=== PATIENT | male | born 1980 ===

== ENCOUNTER 2020-12-06 09:14 | Inpatient (IN) | payer OTHER, SELFPAY ==
[2020-12-06] MEDS ORDERED: ACETAMINOPHEN 500 MG TAB PO ONE (09:52)
[2020-12-06] MEDS ORDERED: SODIUM CHLORIDE 0.9% 1000 ML 1,000 ML IV ONE ×2 (09:52)
--- NOTE | 2020-12-06 09:57 | Emergency Department Report ---
HPI - General Chief Complaint: Dyspnea/Respdistress Time Seen by Provider: 12/06/20 09:32 - HPI HPI: MSE 5 The patient is a 40-year-old male present with a chief complaint of shortness of breath. Patient states he was diagnosed with Covid approximately 7 days ago. The patient states for the past 3 days he has had worsening shortness of breath. Patient is still cough productive yellow sputum for the past 4 days as well as subjective fever. Patient complains of chest pain abdominal pain whenever he coughs. Patient denies nausea/vomiting or diarrhea. Patient states she has not received any vaccinations for Covid. Patient was found to be hypoxic to 92% on room air but improved with supplemental O2. Patient is not on oxygen at home ED Past Medical Hx - Past Medical History Previous Medical History?: No - Surgical History Past Surgical History?: No - Family History Family history: no significant - Social History Smoking Status: Former Smoker (None x5 years) Substance Use Type: None (Denies illicit drug use), Alcohol (Frequent) ED Review of Systems ROS: Stated complaint: COVID +/HEIDY Other details as noted in HPI Constitutional: fever (Subjective) Eyes: denies: eye pain ENT: denies: throat pain Respiratory: cough, shortness of breath Cardiovascular: chest pain Endocrine: no symptoms reported Gastrointestinal: abdominal pain Genitourinary: denies: dysuria Musculoskeletal: myalgia Neurological: denies: headache Physical Exam - Physical Exam Vital Signs: Vital Signs 12/06/20 12/06/20 09:20 09:21 Temperature 100.4 F H 98.0 F Pulse Rate 110 H Respiratory 16 Rate Blood Pressure 146/85 [Left] O2 Sat by Pulse 92 Oximetry Physical Exam: GENERAL: The patient is well-developed well-nourished male lying on stretcher not appearing to be in acute distress. [] HEENT: Normocephalic. Atraumatic. Extraocular motions are intact. Patient has moist mucous membranes. NECK: Supple. Trachea midline CHEST/LUNGS: Diminished at the bases bilaterally. Rhonchi left base. Occasional cough HEART/CARDIOVASCULAR: Regular. There is tachycardia. There is no gallop rub or murmur. ABDOMEN: Abdomen is soft, nontender. Patient has normal bowel sounds. There is no abdominal distention. SKIN: There is no rash. There is no edema. There is no diaphoresis. NEURO: The patient is awake, alert, and oriented. The patient is cooperative. The patient has no focal neurologic deficits. The patient has normal speech. GCS 15 MUSCULOSKELETAL: There is no evidence of acute injury. ED Course Vital Signs 12/06/20 12/06/20 09: 09: Temperature 100.4 F H 98.0 F Pulse Rate 110 H Respiratory 16 Rate Blood Pressure 146/85 [Left] O2 Sat by Pulse 92 Oximetry ED Medical Decision Making - Lab Data Result diagrams: 12/06/20 10:03 12/06/20 10:03 Laboratory Tests 12/06/20 12/06/20 12/06/20 10:03 10:03 10:03 WBC 5.2 RBC 5.06 H Hgb 16.6 H Hct 46.5 H MCV 92 MCH 33 H MCHC 36 H RDW 13.0 L Plt Count 177 Lymph % (Auto) 12.3 L [place] % (Auto) 6.9 Eos % (Auto) 0.0 Baso % (Auto) 0.3 Lymph # (Auto) 0.6 L [place] # (Auto) 0.4 Eos # (Auto) 0.0 Baso # (Auto) 0.0 Seg Neutrophils % 80.5 H Seg Neutrophils # 4.2 D-Dimer Sodium 136 L Potassium 4.4 Chloride 96.3 L Carbon Dioxide 26 Anion Gap 18 BUN 15 Creatinine 0.7 L Estimated GFR > 60 BUN/Creatinine Ratio 21 Glucose 229 H Lactic Acid 2.90 H* Calcium 8.5 Total Bilirubin 0.50 AST 46 H ALT 44 Alkaline Phosphatase 72 Lactate Dehydrogenase Total Creatine Kinase 261 H CK-MB (CK-2) 1.4 CK-MB (CK-2) Rel Index 0.5 Troponin T < 0.010 C-Reactive Protein NT-Pro-B Natriuret Pep 5.79 Total Protein 8.1 Albumin 3.7 L Albumin/Globulin Ratio 0.8 12/06/20 12/06/20 10:03 10:03 WBC RBC Hgb Hct MCV MCH MCHC RDW Plt Count Lymph % (Auto) [place] % (Auto) Eos % (Auto) Baso % (Auto) Lymph # (Auto) [place] # (Auto) Eos # (Auto) Baso # (Auto) Seg Neutrophils % Seg Neutrophils # D-Dimer 400.56 H Sodium Potassium Chloride Carbon Dioxide Anion Gap BUN Creatinine Estimated GFR BUN/Creatinine Ratio Glucose 229 H Lactic Acid Calcium Total Bilirubin AST ALT Alkaline Phosphatase Lactate Dehydrogenase 395 H Total Creatine Kinase CK-MB (CK-2) CK-MB (CK-2) Rel Index Troponin T C-Reactive Protein 15.80 H NT-Pro-B Natriuret Pep Total Protein Albumin Albumin/Globulin Ratio - EKG Data -: EKG Interpreted by Me EKG shows normal: sinus rhythm, axis, QRS complexes Rate: tachycardia (104 bpm) - EKG Data When compared to previous EKG there are: previous EKG unavailable Interpretation: nonspecific ST-T wave gabby (T wave inversion lead III) - Radiology Data Radiology results: report reviewed (Chest x-ray), image reviewed (Chest x-ray) interpreted by me: Chest [id number] patchy bilateral infiltrates consistent with Covid pneumonia. No pneumothorax [facility] [address] [place] [address] XRay Report Signed Patient: MAGNUS PAYNE MR#: [id number] : 1980 Acct:[id number] Age/Sex: 40 / M ADM Date: 12/06/20 Loc: ED Attending Dr: Ordering Physician: LAUREN FOOTE MD Date of Service: 12/06/20 Procedure(s): XR chest routine 2V Accession Number(s): [id number] cc: LAUREN FOOTE MD Fluoro Time In Minutes: CHEST 2 VIEWS INDICATION / CLINICAL INFORMATION: Hypoxia, Covid positive. Chest pain. COMPARISON: None available. FINDINGS: SUPPORT DEVICES: None. HEART / MEDIASTINUM: No significant abnormality. LUNGS / PLEURA: Severe patchy bilateral opacities. ADDITIONAL FINDINGS: No significant additional findings. IMPRESSION: 1. Severe patchy bilateral pulmonary opacities suggesting multifocal viral pneumonia. Signer Name: Ry Turner MD Signed: 12/06/2020 10:48 AM Workstation Name: [id number] Transcribed By: BRANDON Dictated By: Ry Turner MD Electronically Authenticated By: Ry Turner MD Signed Date/Time: 12/06/20 104 DD/ 47 TD/TT: Print Cancel - Differential Diagnosis COVID pneumonia Critical care attestation.: If time is entered above; I have spent that time in minutes in the direct care of this critically ill patient, excluding procedure time. ED Disposition Clinical Impression: Pneumonia due to COVID-19 virus, Hypoxia Disposition: ADMITTED INPATIENT Is pt being admited?: Yes Does the pt Need Aspirin: No Condition: Fair Instructions: Bacterial Pneumonia (ED) Referrals: PRIMARY CARE, [Primary Care Provider] - 3-5 Days Time of Disposition: 11:27 (Hospitalist notified)
[2020-12-06] MEDS ORDERED: dexAMETHasone 20 MG/5 ML VIAL IV ONE (09:59)
[2020-12-06] MEDS ORDERED: cefTRIAXone/NS 1 GM/50 ML 1 GM/50 ML BAG IV ONE (10:39)
[2020-12-06] MEDS ORDERED: AZITHROMYCIN/NS 500 MG/250 ML 500 MG/250 ML BAG IV ONE (10:39)
--- NOTE | 2020-12-06 10:52 | XRay Report ---
CHEST 2 VIEWS INDICATION / CLINICAL INFORMATION: Hypoxia, Covid positive. Chest pain. COMPARISON: None available. FINDINGS: SUPPORT DEVICES: None. HEART / MEDIASTINUM: No significant abnormality. LUNGS / PLEURA: Severe patchy bilateral opacities. ADDITIONAL FINDINGS: No significant additional findings. IMPRESSION: 1. Severe patchy bilateral pulmonary opacities suggesting multifocal viral pneumonia. Signer Name: Ry Turner MD Signed: 12/06/2020 10:48 AM Workstation Name: [id number]
[2020-12-06 10:55] LABS: Basophils % (Auto) 0.3 % (0.0-1.8); Lymphocytes # (Auto) 0.6 K/mm3 (1.2-5.4); Lymphocytes % (Auto) 12.3 % (13.4-35.0); Mean Corpuscular HGB Conc 36 % (32-34); Mean Corpuscular Volume 92 fl (84-94); Monocytes # (Auto) 0.4 K/mm3 (0.0-0.8); Monocytes % (Auto) 6.9 % (0.0-7.3); Platelet Count 177 K/mm3 (140-440); Red Blood Count 5.06 M/mm3 (3.65-5.03)
[2020-12-06 11:01] LABS: Hematocrit 46.5 % (35.5-45.6); Hemoglobin 16.6 gm/dl (11.8-15.2)
[2020-12-06 11:15] LABS: Creatine Kinase MB 1.4 ng/mL (0.0-4.0)
[2020-12-06 11:18] LABS: Alanine Aminotransferase 44 units/L (7-56); Albumin 3.7 g/dL (3.9-5); Blood Urea Nitrogen 15 mg/dL (9-20); Calcium 8.5 mg/dL (8.4-10.2); Hemolysis Index 9
[2020-12-06 11:19] LABS: C-Reactive Protein 15.8 mg/dL (0.00-1.30)
[2020-12-06 11:23] LABS: BUN/Creatinine Ratio 21
[2020-12-06] MEDS ORDERED: ACETAMINOPHEN 325 MG TAB PO PRN ×2 (16:00→17:42)
[2020-12-06] MEDS ORDERED: METOCLOPRAMIDE 10 MG/2 ML INJ IV PRN (17:44)
[2020-12-06] MEDS ORDERED: SODIUM CHLORIDE 0.9% 1000 ML 1,000 ML IV SCH (17:45)
--- NOTE | 2020-12-06 17:50 | History and Physical Report ---
History of Present Illness Date of examination: 12/06/20 Date of admission: 12/06/20 11:26 Chief complaint: Fever and cough and shortness of breath for 4 days. History of present illness: 40-year-old male with no significant past medical history comes in for increasi ng shortness of breath over the last 3 days. Patient was diagnosed with Covid approximately 7 days ago. Patient has cough paroxysms with no sputum for the past 4 days and subjective fever off and on for the past 4 days. Patient also complains of chest pain and abdominal pain whenever he coughs. Patient denies nausea vomiting or diarrhea. Patient was hypoxic found to be hypoxic at 92% on room air indicating mid to 86% on ambulation. Patient is not on oxygen at home. Patient is not vaccinated. Exposed to Covid pneumonia in the community. No loss of taste or smell. - Past Medical History Previous Medical History?: No - Surgical History Past Surgical History?: No - Family History Family history: no significant - Social History Smoking Status: Former Smoker (None x5 years) Substance Use Type: None (Denies illicit drug use), Alcohol (Frequent) Review of Systems ROS: Stated complaint: COVID +/HEIDY Other details as noted in HPI Constitutional: fever (Subjective) Eyes: denies: eye pain ENT: denies: throat pain Respiratory: cough, shortness of breath Cardiovascular: chest pain Endocrine: no symptoms reported Gastrointestinal: abdominal pain Genitourinary: denies: dysuria Musculoskeletal: myalgia Neurological: denies: headache Medications and Allergies Allergies Allergy/AdvReac Type Severity Reaction Status Date / Time No Known Allergies Allergy Verified 12/06/20 09:22 Active Meds: Active Medications Acetaminophen (Acetaminophen 325 Mg Tab) 650 mg PO Q6H PRN PRN Reason: Pain, Mild (1-3) Guaifenesin (Guaifenesin 100 Mg/5 Ml Oral Liqd) 200 mg PO Q4H PRN PRN Reason: Cough Exam - Constitutional Vitals: Temp Pulse Resp BP Pulse Ox 99.2 F 89 18 129/78 92 12/06/20 15:55 12/06/20 15:43 12/06/20 15:43 12/06/20 15:43 12/06/20 15:43 General appearance: Present: mild distress, well-nourished - EENT Eyes: Present: PERRL ENT: hearing intact, clear oral mucosa - Neck Neck: Present: supple, normal ROM - Respiratory Respiratory effort: normal Respiratory: bilateral: CTA, rhonchi (Scattered) - Cardiovascular Heart rate: 88 Rhythm: regular Heart Sounds: Present: S1 & S2. Absent: rub, click - Extremities Extremities: pulses symmetrical, No edema Peripheral Pulses: within normal limits - Abdominal General gastrointestinal: Present: soft, non-tender, non-distended, normal bowel sounds Male genitourinary: Present: normal - Integumentary Integumentary: Present: clear, warm, dry - Musculoskeletal Musculoskeletal: gait normal, strength equal bilaterally - Psychiatric Psychiatric: appropriate mood/affect, intact judgment & insight - Neurologic Neurologic: CNII-XII intact, moves all extremities - Allied Health Allied health notes reviewed: nursing, case management HEART Score - HEART Score Troponin: Troponin T < 0.010 ng/mL (0.00-0.029) 12/06/20 10:03 Results - Labs CBC & Chem 7: 12/06/20 10:03 12/06/20 10:03 Labs: Laboratory Last Values WBC 5.2 K/mm3 (4.5-11.0) 12/06/20 10:03 RBC 5.06 M/mm3 (3.65-5.03) H 12/06/20 10:03 Hgb 16.6 gm/dl (11.8-15.2) H 12/06/20 10:03 Hct 46.5 % (35.5-45.6) H 12/06/20 10:03 MCV 92 fl (84-94) 12/06/20 10:03 MCH 33 pg (28-32) H 12/06/20 10:03 MCHC 36 % (32-34) H 12/06/20 10:03 RDW 13.0 % (13.2-15.2) L 12/06/20 10:03 Plt Count 177 K/mm3 (140-440) 12/06/20 10:03 Lymph % (Auto) 12.3 % (13.4-35.0) L 12/06/20 10:03 [place] % (Auto) 6.9 % (0.0-7.3) 12/06/20 10:03 Eos % (Auto) 0.0 % (0.0-4.3) 12/06/20 10:03 Baso % (Auto) 0.3 % (0.0-1.8) 12/06/20 10:03 Lymph # (Auto) 0.6 K/mm3 (1.2-5.4) L 12/06/20 10:03 [place] # (Auto) 0.4 K/mm3 (0.0-0.8) 12/06/20 10:03 Eos # (Auto) 0.0 K/mm3 (0.0-0.4) 12/06/20 10:03 Baso # (Auto) 0.0 K/mm3 (0.0-0.1) 12/06/20 10:03 Seg Neutrophils % 80.5 % (40.0-70.0) H 12/06/20 10:03 Seg Neutrophils # 4.2 K/mm3 (1.8-7.7) 12/06/20 10:03 D-Dimer 400.56 ng/mlDDU (0-234) H 12/06/20 10:03 Sodium 136 mmol/L (137-145) L 12/06/20 10:03 Potassium 4.4 mmol/L (3.6-5.0) 12/06/20 10:03 Chloride 96.3 mmol/L (98-107) L 12/06/20 10:03 Carbon Dioxide 26 mmol/L (22-30) 12/06/20 10:03 Anion Gap 18 mmol/L 12/06/20 10:03 BUN 15 mg/dL (9-20) 12/06/20 10:03 Creatinine 0.7 mg/dL (0.8-1.3) L 12/06/20 10:03 Estimated GFR > 60 ml/min 12/06/20 10:03 BUN/Creatinine Ratio 21 % 12/06/20 10:03 Glucose 229 mg/dL (75-100) H 12/06/20 10:03 Glucose 229 mg/dL (75-100) H 12/06/20 10:03 Lactic Acid 2.90 mmol/L (0.7-2.0) H* 12/06/20 10:03 Calcium 8.5 mg/dL (8.4-10.2) 12/06/20 10:03 Ferritin 1901.0 ng/mL (30.0-300.0) H 12/06/20 10:03 Total Bilirubin 0.50 mg/dL (0.1-1.2) 12/06/20 10:03 AST 46 units/L (5-40) H 12/06/20 10:03 ALT 44 units/L (7-56) 12/06/20 10:03 Alkaline Phosphatase 72 units/L (35-129) 12/06/20 10:03 Lactate Dehydrogenase 395 units/L (91-180) H 12/06/20 10:03 Total Creatine Kinase 261 units/L (55-170) H 12/06/20 10:03 CK-MB (CK-2) 1.4 ng/mL (0.0-4.0) 12/06/20 10:03 CK-MB (CK-2) Rel Index 0.5 (0-4) 12/06/20 10:03 Troponin T < 0.010 ng/mL (0.00-0.029) 12/06/20 10:03 C-Reactive Protein 15.80 mg/dL (0.00-1.30) H 12/06/20 10:03 NT-Pro-B Natriuret Pep 5.79 pg/mL (0-450) 12/06/20 10:03 Total Protein 8.1 g/dL (6.3-8.2) 12/06/20 10:03 Albumin 3.7 g/dL (3.9-5) L 12/06/20 10:03 Albumin/Globulin Ratio 0.8 % 12/06/20 10:03 Procalcitonin 0.07 ng/mL (<0.15) 12/06/20 10:03 Coronavirus (PCR) Positive (Negative) A 12/06/20 Unknown Microbiology: Microbiology 12/06/20 10:03 Peripheral/Venous Blood Culture - Preliminary Culture in Progress 12/06/20 10:03 Peripheral/Venous Blood Culture - Preliminary Culture in Progress - Imaging and Cardiology Chest x-ray: report reviewed Imaging and Cardiology: Chest x-ray Severe patchy bilateral pulmonary opacities suggesting multifocal viral pneumonia Assessment and Plan Advance Directives: Yes (Full code) VTE prophylaxis?: Chemical Plan of care discussed with patient/family: Yes - Patient Problems (1) Acute respiratory failure with hypoxia Current Visit: Yes Status: Acute Plan to address problem: Continue oxygen supplementation IV Decadron IV remdesivir if necessary (2) Bilateral pneumonia Current Visit: Yes Status: Acute Plan to address problem: IV Rocephin and Zithromax for now We will discontinue antibiotics if procalcitonin is normal (3) SIRS (systemic inflammatory response syndrome) Current Visit: Yes Status: Acute Plan to address problem: Patient's clinical picture is consistent with systemic inflammatory response syndrome. D-dimer is 409, lactic acid is 2.99, ferritin is 199, LDH is 595 and CRP is 15.6. (4) Hyponatremia Current Visit: Yes Status: Acute Plan to address problem: IV normal saline for 12 hours. Repeat sodium level in the morning. (5) Hyperglycemia Current Visit: Yes Status: Acute Plan to address problem: Coverage for now and check hemoglobin A1c Patient may have undiagnosed diabetes To be discharged on Metformin and oral hypoglycemics--we will defer to primary team (6) DVT prophylaxis Current Visit: Yes Status: Acute Plan to address problem: On Lovenox and GI prophylaxis
[2020-12-06] MEDS ORDERED: AZITHROMYCIN/NS 500 MG/250 ML 500 MG/250 ML BAG IV SCH (18:00)
[2020-12-06] MEDS ORDERED: dexAMETHasone 4 MG/ML VIAL IV SCH (18:00)
[2020-12-06] MEDS: FAMOTIDINE 20 MG TAB PO SCH (21:21)
[2020-12-06] MEDS: ENOXAPARIN 40 MG/0.4 ML INJ SUB-Q SCH (21:21)
[2020-12-07] MEDS: guaiFENesin 100 MG/5 ML ORAL LIQD PO PRN ×3 (01:23→17:35)
[2020-12-07] MEDS: oxyCODONE /ACETAMINOPHEN 5-325MG TAB PO PRN ×2 (01:23→17:35)
[2020-12-07 08:00] LABS: Basophils % (Auto) 0.1 % (0.0-1.8); Hematocrit 43.7 % (35.5-45.6); Hemoglobin 15.1 gm/dl (11.8-15.2); Lymphocytes # (Auto) 0.7 K/mm3 (1.2-5.4); Lymphocytes % (Auto) 8.6 % (13.4-35.0); Mean Corpuscular HGB Conc 35 % (32-34); Mean Corpuscular Volume 93 fl (84-94); Monocytes # (Auto) 0.7 K/mm3 (0.0-0.8); Monocytes % (Auto) 8.6 % (0.0-7.3); Platelet Count 209 K/mm3 (140-440); Red Blood Count 4.68 M/mm3 (3.65-5.03); Red Cell Distribution Width 13.1 % (13.2-15.2)
[2020-12-07 08:12] LABS: Alanine Aminotransferase 38 units/L (7-56); Albumin 3.4 g/dL (3.9-5); Blood Urea Nitrogen 16 mg/dL (9-20); Calcium 8.3 mg/dL (8.4-10.2); Hemolysis Index 5
[2020-12-07 08:21] LABS: BUN/Creatinine Ratio 32
[2020-12-07] MEDS: INSULIN LISPRO 100 UNIT/ML SUB-Q SCH ×4 (08:45→22:10)
[2020-12-07] MEDS: ENOXAPARIN 40 MG/0.4 ML INJ SUB-Q SCH (09:55)
[2020-12-07] MEDS: FAMOTIDINE 20 MG TAB PO SCH ×2 (09:55→22:10)
[2020-12-07] MEDS: dexAMETHasone 4 MG/ML VIAL IV SCH (09:55)
[2020-12-07] MEDS ORDERED: AZITHROMYCIN/NS 500 MG/250 ML 500 MG/250 ML BAG IV SCH (10:00)
[2020-12-07] MEDS ORDERED: cefTRIAXone/NS 2 GM/100 ML 2 GM/100 ML BAG IV SCH (10:00)
--- NOTE | 2020-12-07 10:00 | Progress Note ---
Assessment and Plan Assessment and plan: -- Acute respiratory failure with hypoxia Current Visit: Yes Status: Acute Patient is on high flow nasal cannula oxygen 40 L/FiO2 80%/95 O2 sats Due to COVID-19 pneumonia with hypoxia --COVID-19 infection Current Visit: Yes Status: Acute Continue steroids total 10 days Consider remdesivir per protocol for 5 days Home O2 evaluation Prone positioning Inflammatory markers Home O2 evaluation prior to discharge --Bilateral pneumonia Current Visit: Yes Status: Acute On empiric IV Rocephin and Zithromax for now DC antibiotics as procalcitonin is low Check inflammatory markers -- SIRS (systemic inflammatory response syndrome) Current Visit: Yes Status: Acute Patient's clinical picture is consistent with systemic inflammatory response syndrome. D-dimer is 409, lactic acid is 2.99, ferritin is 199, LDH is 595 and CRP is 15.6. -- Hyponatremia/resolved Current Visit: Yes Status: Acute Closely monitor electrolytes --Hyperglycemia Current Visit: Yes Status: Acute Accu-Chek sliding scale coverage check hemoglobin A1c Probably secondary to steroids, HbA1c is less than 6 Closely monitor --DVT prophylaxis Current Visit: Yes Status: Acute On Lovenox subcu Closely monitor the patient and adjust management as needed Plan of care reviewed with the patient and his nurse 12/07/2020; COVID-19 positive test With hypoxia on high flow oxygen, wean as tolerated Patient is placed on steroids, started remdesivir per protocol Inflammatory markers, prone positioning ID evaluation and recommendations noted and appreciated History Interval history: I have seen and examined the patient this afternoon Isolation precautions PPE protocols observed Patient on high flow oxygen 40 L In mild distress Vital signs reviewed Hospitalist Physical - Constitutional Vitals: Temp Pulse Resp BP Pulse Ox 98.6 F 79 20 135/75 95 12/07/20 05:27 12/07/20 05:27 12/07/20 05:27 12/07/20 05:27 12/07/20 09:48 General appearance: Present: mild distress, well-nourished, other (On high flow oxygen) - EENT Eyes: Present: PERRL, EOM intact - Neck Neck: Present: supple, normal ROM - Respiratory Respiratory effort: normal Respiratory: bilateral: diminished, rhonchi, negative: rales, wheezing - Cardiovascular Rhythm: regular Heart Sounds: Present: S1 & S2 - Extremities Extremities: no ischemia, No edema - Abdominal General gastrointestinal: soft, non-tender, non-distended, normal bowel sounds - Integumentary Integumentary: Present: clear, warm - Psychiatric Psychiatric: appropriate mood/affect, cooperative - Neurologic Neurologic: CNII-XII intact, moves all extremities HEART Score - HEART Score Troponin: Troponin T < 0.010 ng/mL (0.00-0.029) 12/06/20 10:03 Results - Labs CBC & Chem 7: 12/07/20 07:01 12/07/20 07:01 Labs: Laboratory Last Values WBC 7.9 K/mm3 (4.5-11.0) 12/07/20 07:01 RBC 4.68 M/mm3 (3.65-5.03) 12/07/20 07:01 Hgb 15.1 gm/dl (11.8-15.2) 12/07/20 07:01 Hct 43.7 % (35.5-45.6) 12/07/20 07:01 MCV 93 fl (84-94) 12/07/20 07:01 MCH 32 pg (28-32) 12/07/20 07:01 MCHC 35 % (32-34) H 12/07/20 07:01 RDW 13.1 % (13.2-15.2) L 12/07/20 07:01 Plt Count 209 K/mm3 (140-440) 12/07/20 07:01 Lymph % (Auto) 8.6 % (13.4-35.0) L 12/07/20 07:01 [place] % (Auto) 8.6 % (0.0-7.3) H 12/07/20 07:01 Eos % (Auto) 0.0 % (0.0-4.3) 12/07/20 07:01 Baso % (Auto) 0.1 % (0.0-1.8) 12/07/20 07:01 Lymph # (Auto) 0.7 K/mm3 (1.2-5.4) L 12/07/20 07:01 [place] # (Auto) 0.7 K/mm3 (0.0-0.8) 12/07/20 07:01 Eos # (Auto) 0.0 K/mm3 (0.0-0.4) 12/07/20 07:01 Baso # (Auto) 0.0 K/mm3 (0.0-0.1) 12/07/20 07:01 Seg Neutrophils % 82.7 % (40.0-70.0) H 12/07/20 07:01 Seg Neutrophils # 6.6 K/mm3 (1.8-7.7) 12/07/20 07:01 D-Dimer 400.56 ng/mlDDU (0-234) H 12/06/20 10:03 Sodium 141 mmol/L (137-145) 12/07/20 07:01 Potassium 4.5 mmol/L (3.6-5.0) 12/07/20 07:01 Chloride 103.0 mmol/L (98-107) 12/07/20 07:01 Carbon Dioxide 29 mmol/L (22-30) 12/07/20 07:01 Anion Gap 14 mmol/L 12/07/20 07:01 BUN 16 mg/dL (9-20) 12/07/20 07:01 Creatinine 0.5 mg/dL (0.8-1.3) L 12/07/20 07:01 Estimated GFR > 60 ml/min 12/07/20 07:01 BUN/Creatinine Ratio 32 % 12/07/20 07:01 Glucose 147 mg/dL (75-100) H 12/07/20 07:01 POC Glucose 140 mg/dL (70-105) H 12/07/20 07:27 Hemoglobin A1c 5.8 % (4-6) 12/07/20 07:01 Lactic Acid 1.80 mmol/L (0.7-2.0) 12/06/20 19:12 Calcium 8.3 mg/dL (8.4-10.2) L 12/07/20 07:01 Ferritin 1901.0 ng/mL (30.0-300.0) H 12/06/20 10:03 Total Bilirubin 0.50 mg/dL (0.1-1.2) 12/07/20 07:01 AST 38 units/L (5-40) 12/07/20 07:01 ALT 38 units/L (7-56) 12/07/20 07:01 Alkaline Phosphatase 61 units/L (35-129) 12/07/20 07:01 Lactate Dehydrogenase 395 units/L (91-180) H 12/06/20 10:03 Total Creatine Kinase 261 units/L (55-170) H 12/06/20 10:03 CK-MB (CK-2) 1.4 ng/mL (0.0-4.0) 12/06/20 10:03 CK-MB (CK-2) Rel Index 0.5 (0-4) 12/06/20 10:03 Troponin T < 0.010 ng/mL (0.00-0.029) 12/06/20 10:03 C-Reactive Protein 15.80 mg/dL (0.00-1.30) H 12/06/20 10:03 NT-Pro-B Natriuret Pep 5.79 pg/mL (0-450) 12/06/20 10:03 Total Protein 7.3 g/dL (6.3-8.2) 12/07/20 07:01 Albumin 3.4 g/dL (3.9-5) L 12/07/20 07:01 Albumin/Globulin Ratio 0.9 % 12/07/20 07:01 Procalcitonin 0.07 ng/mL (<0.15) 12/06/20 10:03 Coronavirus (PCR) Positive (Negative) A 12/06/20 Unknown Microbiology: Microbiology 12/06/20 10:03 Peripheral/Venous Blood Culture - Preliminary Culture in Progress 12/06/20 10:03 Peripheral/Venous Blood Culture - Preliminary Culture in Progress [place]/IV: Voiding Method Urinal Active Medications - Current Medications Current Medications: Generic Name Dose Route Start Last Admin Trade Name Freq PRN Reason Stop Dose Admin Acetaminophen 650 mg 12/06/20 17:42 12/07/20 08:02 Acetaminophen 325 Mg Tab PO 650 mg Q4H PRN Administration Pain MILD(1-3)/Fever >100.5/BALDERRAMA Dexamethasone 8 mg 12/07/20 10:00 12/07/20 09:55 Dexamethasone 4 Mg/Ml Vial IV 12/15/20 10:01 8 mg DAILY LORENZO Administration Enoxaparin Sodium 40 mg 12/06/20 18:00 12/07/20 09:55 Enoxaparin 40 Mg/0.4 Ml Inj SUB-Q 40 mg QDAY LORENZO Administration Famotidine 20 mg 12/06/20 22:00 12/07/20 09:55 Famotidine 20 Mg Tab PO 20 mg BID LORENZO Administration Guaifenesin 200 mg 12/06/20 17:00 12/07/20 08:02 Guaifenesin 100 Mg/5 Ml Oral Liqd PO 200 mg Q4H PRN Administration Cough Hydromorphone HCl 0.5 mg 12/06/20 17:44 Hydromorphone 1 Mg/1 Ml Inj IV Q3H PRN Pain , Severe (7-10) Ceftriaxone Sodium 2 gm in 100 mls @ 200 mls/hr 12/07/20 10:00 12/07/20 09:54 Rocephin/Ns 2 Gm/100 Ml IV 12/10/20 10:29 200 mls/hr Q24HR LORENZO Administration Protocol Azithromycin 500 mg in 250 mls @ 250 mls/hr 12/07/20 10:00 12/07/20 09:54 Zithromax/Ns IV 12/10/20 10:59 250 mls/hr Q24HR LORENZO Administration Insulin Human Lispro 0 unit 12/07/20 07:30 12/07/20 08:45 Insulin Lispro 100 Unit/Ml SUB-Q Not Given ACHS [facility] Protocol Metoclopramide HCl 10 mg 12/06/20 17:44 Metoclopramide 10 Mg/2 Ml Inj IV Q6H PRN Nausea And Vomiting Ondansetron HCl 4 mg 12/06/20 17:42 Ondansetron 4 Mg/2 Ml Inj IV Q8H PRN Nausea And Vomiting Oxycodone/Acetaminophen 1 tab 12/06/20 17:44 12/07/20 01:23 Oxycodone /Acetaminophen 5-325mg Tab PO 1 tab Q6H PRN Administration Pain, Moderate (4-6) Sodium Chloride 10 ml 12/06/20 22:00 12/07/20 09:55 Sodium Chloride 0.9% 10 Ml Flush Syringe IV 10 ml BID LORENZO Administration Sodium Chloride 10 ml 12/06/20 17:42 Sodium Chloride 0.9% 10 Ml Flush Syringe IV PRN PRN LINE FLUSH
--- NOTE | 2020-12-07 11:38 | Electrocardiograph Report ---
[facility] Test Date: 2020-12-06 Test Time: 09:27:36 Pat Name: MAGNUS CHILD Department: Room: A365 Gender: M Pediatrician Active Practice: [facility] : 1980 Requested By: LAUREN FOOTE Order Number: [id number] Reading MD: Romero Ohara Measurements Intervals [place] Rate: 104 P: 28 [place]: 134 QRS: 25 QRSD: 74 T: 94 QT: 305 QTc: 400 Interpretive Statements Sinus tachycardia nonspecific st-t No previous ECG available for comparison Electronically Signed On 12-07-2020 11:37:42 EDT by Romero Ohara
[2020-12-07] MEDS ORDERED: BENZOCAINE/MENTHOL LOZENGE MM PRN (17:20)
--- NOTE | 2020-12-07 17:33 | Consultation ---
History of Present Illness - Reason for Consult Consult date: 12/07/20 COVID - History of Present Illness 40-year-old male with no medical history, admitted on 12/14/2020 secondary to 3 days history of cough, malaise, fever, body aches, and shortness of breath. Patient was diagnosed with COVID-19 7 days before admission. Patient did not receive COVID-19 vaccination. On arrival, temperature 100.4, HR 110, O2 sat 92% dropped to 86% on ambulation, BP 146/85. D-dimer 400.5. CRP 15.8. Proca lcitonin 0.07. Creatinine 0.7. AST 46. Glucose 229. Chest x-ray with severe bilateral airspace disease. Review of Systems: reviewed ED and H&P notes. Review of system deferred to minimize COVID-19 transmission. Medications and Allergies Allergies Allergy/AdvReac Type Severity Reaction Status Date / Time No Known Allergies Allergy Verified 12/06/20 09:22 Home Medications Medication Instructions Recorded Confirmed Last Taken Type No Known Home Medications [No 12/07/20 12/07/20 Unknown History Reported Home Medications] Active Meds: Active Medications Acetaminophen (Acetaminophen 325 Mg Tab) 650 mg PO Q4H PRN PRN Reason: Pain MILD(1-3)/Fever >100.5/BALDERRAMA Last Admin: 12/07/20 08:02 Dose: 650 mg Documented by: Benzocaine/Menthol (Benzocaine/Menthol Lozenge) 1 each MM Q2HR PRN PRN Reason: Sore Throat Dexamethasone (Dexamethasone 4 Mg/Ml Vial) 8 mg IV DAILY [facility] Stop: 12/15/20 10:01 Last Admin: 12/07/20 09:55 Dose: 8 mg Documented by: Enoxaparin Sodium (Enoxaparin 40 Mg/0.4 Ml Inj) 40 mg SUB-Q QDAY [facility] Last Admin: 12/07/20 09:55 Dose: 40 mg Documented by: Famotidine (Famotidine 20 Mg Tab) 20 mg PO BID [facility] Last Admin: 12/07/20 09:55 Dose: 20 mg Documented by: Guaifenesin (Guaifenesin 100 Mg/5 Ml Oral Liqd) 200 mg PO Q4H PRN PRN Reason: Cough Last Admin: 12/07/20 08:02 Dose: 200 mg Documented by: Hydromorphone HCl (Hydromorphone 1 Mg/1 Ml Inj) 0.5 mg IV Q3H PRN PRN Reason: Pain , Severe (7-10) Ceftriaxone Sodium (Rocephin/Ns 2 Gm/100 Ml) 2 gm in 100 mls @ 200 mls/hr IV Q24HR [facility]; Protocol Stop: 12/10/20 10:29 Last Admin: 12/07/20 09:54 Dose: 200 mls/hr Documented by: Azithromycin (Zithromax/Ns) 500 mg in 250 mls @ 250 mls/hr IV Q24HR [facility] Stop: 12/10/20 10:59 Last Admin: 12/07/20 09:54 Dose: 250 mls/hr Documented by: Insulin Human Lispro (Insulin Lispro 100 Unit/Ml) 0 unit SUB-Q ACHS [facility]; Protocol Last Admin: 12/07/20 16:46 Dose: 4 unit Documented by: Metoclopramide HCl (Metoclopramide 10 Mg/2 Ml Inj) 10 mg IV Q6H PRN PRN Reason: Nausea And Vomiting Ondansetron HCl (Ondansetron 4 Mg/2 Ml Inj) 4 mg IV Q8H PRN PRN Reason: Nausea And Vomiting Oxycodone/Acetaminophen (Oxycodone /Acetaminophen 5-325mg Tab) 1 tab PO Q6H PRN PRN Reason: Pain, Moderate (4-6) Last Admin: 12/07/20 01:23 Dose: 1 tab Documented by: Sodium Chloride (Sodium Chloride 0.9% 10 Ml Flush Syringe) 10 ml IV BID [facility] Last Admin: 12/07/20 09:55 Dose: 10 ml Documented by: Sodium Chloride (Sodium Chloride 0.9% 10 Ml Flush Syringe) 10 ml IV PRN PRN PRN Reason: LINE FLUSH Physical Examination - Physical Exam Narrative exam: Physical exam deferred to minimize COVID-19 transmission during pandemic. - Constitutional Vitals: Vital Signs Temp Pulse Resp BP Pulse Ox 98.5 F 90 20 147/79 91 12/07/20 16:02 12/07/20 16:02 12/07/20 16:02 12/07/20 16:02 12/07/20 16:02 Temperature -Last 24 Hours Temperature 98.5 F Temperature 98.6 F Temperature 100.0 F Results - Labs CBC & Chem 7: 12/07/20 07:01 12/07/20 07:01 Labs: Abnormal lab results 12/07/20 12/07/20 12/07/20 Range/Units 07:01 07:01 07:27 MCHC 35 H (32-34) % RDW 13.1 L (13.2-15.2) % Lymph % (Auto) 8.6 L (13.4-35.0) % [place] % (Auto) 8.6 H (0.0-7.3) % Lymph # (Auto) 0.7 L (1.2-5.4) K/mm3 Seg Neutrophils % 82.7 H (40.0-70.0) % Creatinine 0.5 L (0.8-1.3) mg/dL Glucose 147 H (75-100) mg/dL POC Glucose 140 H (70-105) mg/dL Calcium 8.3 L (8.4-10.2) mg/dL Albumin 3.4 L (3.9-5) g/dL 12/07/20 12/07/20 Range/Units 12:23 16:00 MCHC (32-34) % RDW (13.2-15.2) % Lymph % (Auto) (13.4-35.0) % [place] % (Auto) (0.0-7.3) % Lymph # (Auto) (1.2-5.4) K/mm3 Seg Neutrophils % (40.0-70.0) % Creatinine (0.8-1.3) mg/dL Glucose (75-100) mg/dL POC Glucose 144 H 222 H (70-105) mg/dL Calcium (8.4-10.2) mg/dL Albumin (3.9-5) g/dL Assessment and Plan Cultures: Blood culture 12/06/2020 pending SARS CoV2 PCR positive Assessment: 40-year-old male with no medical history, admitted on 12/14/2020 secondary to 3 days history of cough, malaise, fever, body aches, and shortness of breath. Patient was diagnosed with COVID-19 7 days before admission: #Severe COVID pneumonia: CXR with severe bilateral airspace disease. Inflammatory markers elevated. D-dimer 400.5. CRP 15.8. Procalcitonin 0.07. #Acute hypoxemic respiratory failure: O2 sat 92% dropped to 86% on ambulation, high flow nasal cannula. #Elevated LFTs: from COVID #Hyperglycemia ? Diabetes Recommendations: -Start Dexamethasone 6 mg IV/PO daily for 10 days -Start Remdesivir for 5 days (CrCl>30 mg/mL) -If patient remains on high flow, will probably be a candidate for Tocilizumab -Monitor inflammatory markers - ferritin, Ddimer, CRP, LDH -Monitor liver function test on Remdesivir -Continue anticoagulation per System Protocol -Prone positioning as possible -Stop ceftriaxone and azithromycin, procalcitonin <0.25 ng/mL All laboratory, cultures and imaging were reviewed. Will follow Paloma Solo MD Infectious Diseases [facility] ([facility]) M [phone] O [phone]
[2020-12-07] MEDS ORDERED: REMDESIVIR 200 MG in SODIUM CHLORIDE 0.9% 250ML 250 ML IV ONE (18:30)
[2020-12-07 20:12] LABS: Alanine Aminotransferase 64 units/L (7-56); BUN/Creatinine Ratio 27; Blood Urea Nitrogen 16 mg/dL (9-20); Calcium 8.2 mg/dL (8.4-10.2); Hemolysis Index 8
[2020-12-07] MEDS: SODIUM CHLORIDE 0.9% 50 ML IVPB IV SCH (22:11)
[2020-12-08] MEDS: HYDROmorphone 1 MG/1 ML INJ IV PRN (02:20)
[2020-12-08] MEDS: guaiFENesin 100 MG/5 ML ORAL LIQD PO PRN (02:20)
[2020-12-08] MEDS: INSULIN LISPRO 100 UNIT/ML SUB-Q SCH ×4 (07:30→21:33)
[2020-12-08 08:32] LABS: Alanine Aminotransferase 61 units/L (7-56); Albumin 3.1 g/dL (3.9-5); Blood Urea Nitrogen 18 mg/dL (9-20); Calcium 8.4 mg/dL (8.4-10.2); Hemolysis Index 7
--- NOTE | 2020-12-08 08:32 | Progress Note ---
Assessment and Plan Cultures: Blood culture 12/06/2020 peno growth today SARS CoV2 PCR positive Assessment: 40-year-old male with no medical history, admitted on 12/14/2020 secondary to 3 days history of cough, malaise, fever, body aches, and shortness of breath. Patient was diagnosed with COVID-19 7 days before admission: #Severe COVID pneumonia: CXR with severe bilateral airspace disease. Inflammatory markers elevated. D-dimer 400.5. CRP 15.8. Procalcitonin 0.07. #Acute hypoxemic respiratory failure: remains on high flow nasal cannula 40L, 100%. #Elevated LFTs: not better, from COVID #Hyperglycemia ? Diabetes Recommendations: -Pulmonary consult -Continue Dexamethasone 6 mg IV/PO daily for 10 days -Continue Remdesivir for 5 days (CrCl>30 mg/mL) -Ordered Tocilizumab 8 mg/kg IV x 1 due to severe hypoxia on HFNC 40L, 100%, CRP 25.8. -Monitor inflammatory markers - ferritin, Ddimer, CRP, LDH -Monitor liver function test on Remdesivir -Continue anticoagulation per System Protocol -Prone positioning as possible Guarded prognosis Paloma Solo MD Infectious Diseases [employer] [facility] ([facility]) M [phone] O [phone] Subjective Date of service: 12/08/20 Principal diagnosis: COVID Interval history: Patient remains on high flow nasal cannula, 40 L, 100%, temperature 100.6, O2 sat dropping to 87%. Objective - Exam Narrative Exam: Physical exam deferred to minimize COVID-19 transmission during pandemic. - Constitutional Vitals: Vital Signs Temp Pulse Resp BP Pulse Ox 100.6 F H 94 H 18 107/60 86 12/08/20 04:55 12/08/20 04:55 12/08/20 04:55 12/08/20 04:55 12/08/20 04:55 Temperature -Last 24 Hours Temperature 100.6 F Temperature 99.3 F Temperature 98.5 F - Labs CBC & Chem 7: 12/07/20 07:01 12/08/20 07:26 Labs: Abnormal lab results 12/07/20 12/07/20 12/07/20 Range/Units 12:23 16:00 19:12 Carbon Dioxide 32 H (22-30) mmol/L Creatinine 0.6 L (0.8-1.3) mg/dL Glucose 262 H (75-100) mg/dL POC Glucose 144 H 222 H (70-105) mg/dL Calcium 8.2 L (8.4-10.2) mg/dL AST 69 H (5-40) units/L ALT 64 H (7-56) units/L Albumin 3.0 L (3.9-5) g/dL 12/07/20 12/08/20 Range/Units 21:50 07:58 Carbon Dioxide (22-30) mmol/L Creatinine (0.8-1.3) mg/dL Glucose (75-100) mg/dL POC Glucose 214 H 136 H (70-105) mg/dL Calcium (8.4-10.2) mg/dL AST (5-40) units/L ALT (7-56) units/L Albumin (3.9-5) g/dL
[2020-12-08] MEDS ORDERED: TOCILIZUMAB 800 MG in SODIUM CHLORIDE 0.9% 100 ML IV ONE (08:33)
[2020-12-08 08:44] LABS: BUN/Creatinine Ratio 36
[2020-12-08] MEDS: FAMOTIDINE 20 MG TAB PO SCH ×2 (09:30→21:33)
[2020-12-08] MEDS: ENOXAPARIN 40 MG/0.4 ML INJ SUB-Q SCH (09:30)
[2020-12-08] MEDS: dexAMETHasone 4 MG/ML VIAL IV SCH (09:30)
--- NOTE | 2020-12-08 09:48 | Progress Note ---
Assessment and Plan Assessment and plan: -- Acute respiratory failure with hypoxia Current Visit: Yes Status: Acute Patient is on high flow nasal cannula oxygen 40 L/FiO2 80%/95 O2 sats Due to COVID-19 pneumonia with hypoxia Consult pulmonary after CTA chest tomorrow --COVID-19 infection Current Visit: Yes Status: Acute Continue steroids total 10 days Consider remdesivir per protocol for 5 days Home O2 evaluation Prone positioning Inflammatory markers Home O2 evaluation prior to discharge ID recommended Tocilizumab [Actemra] 100 mL today Consult pulmonary after CTA chest tomorrow --Bilateral pneumonia Current Visit: Yes Status: Acute On empiric IV Rocephin and Zithromax for now DC antibiotics as procalcitonin is low Check inflammatory markers -- SIRS (systemic inflammatory response syndrome) Current Visit: Yes Status: Acute Patient's clinical picture is consistent with systemic inflammatory response syndrome. D-dimer is 409, lactic acid is 2.99, ferritin is 199, LDH is 595 and CRP is 15.6. -- Hyponatremia/resolved Current Visit: Yes Status: Acute Closely monitor electrolytes --Hyperglycemia Current Visit: Yes Status: Acute Accu-Chek sliding scale coverage check hemoglobin A1c Probably secondary to steroids, HbA1c is less than 6 Closely monitor --DVT prophylaxis Current Visit: Yes Status: Acute On Lovenox subcu Closely monitor the patient and adjust management as needed Plan of care reviewed with the patient and his nurse 12/07/2020; COVID-19 positive test With hypoxia on high flow oxygen, wean as tolerated Patient is placed on steroids, started remdesivir per protocol Inflammatory markers, prone positioning ID recommendations noted and appreciated 12/08/2020; Patient remains on high flow oxygen, elevated D-dimers Will check CTA chest tomorrow and consult pulmonary History Interval history: I have seen and examined the patient at the bedside Patient's chart and medications reviewed Isolation precautions PPE protocols observed Patient complains of severe shortness of breath and weakness Patient continues to be on high flow oxygen 40 L/100% FiO2/95% room air In mild distress We will consult pulmonary tomorrow Hospitalist Physical - Constitutional Vitals: Temp Pulse Resp BP Pulse Ox 100.6 F H 94 H 18 107/60 86 12/08/20 04:55 12/08/20 04:55 12/08/20 04:55 12/08/20 04:55 12/08/20 04:55 General appearance: Present: mild distress, well-nourished, other (On high flow oxygen) - EENT Eyes: Present: PERRL, EOM intact - Neck Neck: Present: supple, normal ROM - Respiratory Respiratory effort: normal Respiratory: bilateral: diminished, rhonchi, negative: rales, wheezing - Cardiovascular Rhythm: regular Heart Sounds: Present: S1 & S2 - Extremities Extremities: no ischemia, No edema - Abdominal General gastrointestinal: soft, non-tender, non-distended, normal bowel sounds - Integumentary Integumentary: Present: clear, warm - Psychiatric Psychiatric: appropriate mood/affect, cooperative - Neurologic Neurologic: CNII-XII intact, moves all extremities HEART Score - HEART Score Troponin: Troponin T < 0.010 ng/mL (0.00-0.029) 12/06/20 10:03 Results - Labs CBC & Chem 7: 12/07/20 07:01 12/08/20 07:26 Labs: Laboratory Last Values WBC 7.9 K/mm3 (4.5-11.0) 12/07/20 07:01 RBC 4.68 M/mm3 (3.65-5.03) 12/07/20 07:01 Hgb 15.1 gm/dl (11.8-15.2) 12/07/20 07:01 Hct 43.7 % (35.5-45.6) 12/07/20 07:01 MCV 93 fl (84-94) 12/07/20 07:01 MCH 32 pg (28-32) 12/07/20 07:01 MCHC 35 % (32-34) H 12/07/20 07:01 RDW 13.1 % (13.2-15.2) L 12/07/20 07:01 Plt Count 209 K/mm3 (140-440) 12/07/20 07:01 Lymph % (Auto) 8.6 % (13.4-35.0) L 12/07/20 07:01 [place] % (Auto) 8.6 % (0.0-7.3) H 12/07/20 07:01 Eos % (Auto) 0.0 % (0.0-4.3) 12/07/20 07:01 Baso % (Auto) 0.1 % (0.0-1.8) 12/07/20 07:01 Lymph # (Auto) 0.7 K/mm3 (1.2-5.4) L 12/07/20 07:01 [place] # (Auto) 0.7 K/mm3 (0.0-0.8) 12/07/20 07:01 Eos # (Auto) 0.0 K/mm3 (0.0-0.4) 12/07/20 07:01 Baso # (Auto) 0.0 K/mm3 (0.0-0.1) 12/07/20 07:01 Seg Neutrophils % 82.7 % (40.0-70.0) H 12/07/20 07:01 Seg Neutrophils # 6.6 K/mm3 (1.8-7.7) 12/07/20 07:01 D-Dimer 400.56 ng/mlDDU (0-234) H 12/06/20 10:03 Sodium 142 mmol/L (137-145) 12/08/20 07:26 Potassium 4.5 mmol/L (3.6-5.0) 12/08/20 07:26 Chloride 102.5 mmol/L (98-107) 12/08/20 07:26 Carbon Dioxide 27 mmol/L (22-30) 12/08/20 07:26 Anion Gap 17 mmol/L 12/08/20 07:26 BUN 18 mg/dL (9-20) 12/08/20 07:26 Creatinine 0.5 mg/dL (0.8-1.3) L 12/08/20 07:26 Estimated GFR > 60 ml/min 12/08/20 07:26 BUN/Creatinine Ratio 36 % 12/08/20 07:26 Glucose 136 mg/dL (75-100) H 12/08/20 07:26 POC Glucose 136 mg/dL (70-105) H 12/08/20 07:58 Hemoglobin A1c 5.8 % (4-6) 12/07/20 07:01 Lactic Acid 1.80 mmol/L (0.7-2.0) 12/06/20 19:12 Calcium 8.4 mg/dL (8.4-10.2) 12/08/20 07:26 Ferritin 1901.0 ng/mL (30.0-300.0) H 12/06/20 10:03 Total Bilirubin 0.60 mg/dL (0.1-1.2) 12/08/20 07:26 AST 56 units/L (5-40) H 12/08/20 07:26 ALT 61 units/L (7-56) H 12/08/20 07:26 Alkaline Phosphatase 65 units/L (35-129) 12/08/20 07:26 Lactate Dehydrogenase 395 units/L (91-180) H 12/06/20 10:03 Total Creatine Kinase 261 units/L (55-170) H 12/06/20 10:03 CK-MB (CK-2) 1.4 ng/mL (0.0-4.0) 12/06/20 10:03 CK-MB (CK-2) Rel Index 0.5 (0-4) 12/06/20 10:03 Troponin T < 0.010 ng/mL (0.00-0.029) 12/06/20 10:03 C-Reactive Protein 15.80 mg/dL (0.00-1.30) H 12/06/20 10:03 NT-Pro-B Natriuret Pep 5.79 pg/mL (0-450) 12/06/20 10:03 Total Protein 6.9 g/dL (6.3-8.2) 12/08/20 07:26 Albumin 3.1 g/dL (3.9-5) L 12/08/20 07:26 Albumin/Globulin Ratio 0.8 % 12/08/20 07:26 Procalcitonin 0.07 ng/mL (<0.15) 12/06/20 10:03 Coronavirus (PCR) Positive (Negative) A 12/06/20 Unknown Microbiology: Microbiology 12/06/20 10:03 Peripheral/Venous Blood Culture - Preliminary NO GROWTH AFTER 24 HOURS 12/06/20 10:03 Peripheral/Venous Blood Culture - Preliminary NO GROWTH AFTER 24 HOURS Santillan/IV: Voiding Method Urinal Active Medications - Current Medications Current Medications: Generic Name Dose Route Start Last Admin Trade Name Freq PRN Reason Stop Dose Admin Acetaminophen 650 mg 12/06/20 17:42 12/07/20 08:02 Acetaminophen 325 Mg Tab PO 650 mg Q4H PRN Administration Pain MILD(1-3)/Fever >100.5/BALDERRAMA Benzocaine/Menthol 1 each 12/07/20 17:20 12/07/20 19:19 Benzocaine/Menthol Lozenge MM 1 each Q2HR PRN Administration Sore Throat Dexamethasone 8 mg 12/07/20 10:00 12/08/20 09:30 Dexamethasone 4 Mg/Ml Vial IV 12/15/20 10:01 8 mg DAILY LORENZO Administration Enoxaparin Sodium 40 mg 12/06/20 18:00 12/08/20 09:30 Enoxaparin 40 Mg/0.4 Ml Inj SUB-Q 40 mg QDAY LORENZO Administration Famotidine 20 mg 12/06/20 22:00 12/08/20 09:30 Famotidine 20 Mg Tab PO 20 mg BID LORENZO Administration Guaifenesin 200 mg 12/06/20 17:00 12/08/20 02:20 Guaifenesin 100 Mg/5 Ml Oral Liqd PO 200 mg Q4H PRN Administration Cough Hydromorphone HCl 0.5 mg 12/06/20 17:44 12/08/20 02:20 Hydromorphone 1 Mg/1 Ml Inj IV 0.5 mg Q3H PRN Administration Pain , Severe (7-10) REMDESIVIR 100 mg/ Sodium 250 mls @ 500 mls/hr 12/08/20 21:00 Chloride IV 12/11/20 21:29 Q24HR@2100 [facility] TOCILIZUMAB 810 mg/ Sodium 104.5 mls @ 120 mls/hr 12/08/20 10:00 Chloride IV 12/08/20 14:00 ONCE@1000 NR Insulin Human Lispro 0 unit 12/07/20 07:30 12/08/20 07:30 Insulin Lispro 100 Unit/Ml SUB-Q Not Given ACHS [facility] Protocol Metoclopramide HCl 10 mg 12/06/20 17:44 Metoclopramide 10 Mg/2 Ml Inj IV Q6H PRN Nausea And Vomiting Ondansetron HCl 4 mg 12/06/20 17:42 Ondansetron 4 Mg/2 Ml Inj IV Q8H PRN Nausea And Vomiting Oxycodone/Acetaminophen 1 tab 12/06/20 17:44 12/07/20 17:35 Oxycodone /Acetaminophen 5-325mg Tab PO 1 tab Q6H PRN Administration Pain, Moderate (4-6) Sodium Chloride 10 ml 12/06/20 22:00 12/07/20 22:12 Sodium Chloride 0.9% 10 Ml Flush Syringe IV 10 ml BID LORENZO Administration Sodium Chloride 10 ml 12/06/20 17:42 Sodium Chloride 0.9% 10 Ml Flush Syringe IV PRN PRN LINE FLUSH Sodium Chloride 50 ml 12/07/20 21:00 12/07/20 22:11 Sodium Chloride 0.9% 50 Ml Ivpb IV 12/11/20 21:01 50 ml Q24HR@2100 LORENZO Administration
[2020-12-08] MEDS ORDERED: TOCILIZUMAB 810 MG in SODIUM CHLORIDE 0.9% 100 ML IV NR (10:00)
[2020-12-08 14:40] LABS: C-Reactive Protein 15.8 mg/dL (0.00-1.30)
[2020-12-08] MEDS: SODIUM CHLORIDE 0.9% 50 ML IVPB IV SCH (21:31)
[2020-12-08] MEDS: REMDESIVIR 100 MG in SODIUM CHLORIDE 0.9% 250ML 250 ML IV SCH (21:32)
[2020-12-09] MEDS: INSULIN LISPRO 100 UNIT/ML SUB-Q SCH ×4 (07:30→21:29)
[2020-12-09] MEDS: HYDROmorphone 1 MG/1 ML INJ IV PRN (08:07)
--- NOTE | 2020-12-09 08:56 | Progress Note ---
Assessment and Plan Assessment and plan: -- Acute respiratory failure with hypoxia Current Visit: Yes Status: Acute Patient is on high flow nasal cannula oxygen 40 L/FiO2 100%/95 O2 sats Due to COVID-19 pneumonia with hypoxia CTA chest, pulmonary consult --COVID-19 infection Current Visit: Yes Status: Acute Continue steroids total 10 days Consider remdesivir per protocol for 5 days Home O2 evaluation, Prone positioning High inflammatory markers D-dimer 539 Ferritin 2970 LDH 662 CRP 15.8 Received Tocilizumab [Actemra] 100 mL 12/08/2020 CTA chest requested, pulmonary consulted --Bilateral pneumonia Current Visit: Yes Status: Acute On empiric IV Rocephin and Zithromax for now DC antibiotics as procalcitonin is low -- SIRS (systemic inflammatory response syndrome) Current Visit: Yes Status: Acute Patient's clinical picture is consistent with systemic inflammatory response syn drome. D-dimer is 409, lactic acid is 2.99, ferritin is 199, LDH is 595 and CRP is 15.6. -- Hyponatremia/resolved Current Visit: Yes Status: Acute Closely monitor electrolytes --Hyperglycemia Current Visit: Yes Status: Acute Accu-Chek sliding scale coverage check hemoglobin A1c Probably secondary to steroids, HbA1c is less than 6 Closely monitor --DVT prophylaxis Current Visit: Yes Status: Acute On Lovenox subcu Closely monitor the patient and adjust management as needed Plan of care reviewed with the patient and his nurse 12/07/2020; COVID-19 positive test With hypoxia on high flow oxygen, wean as tolerated Patient is placed on steroids, started remdesivir per protocol Inflammatory markers, prone positioning ID recommendations noted and appreciated 12/08/2020; Patient remains on high flow oxygen, elevated D-dimers Will check CTA chest tomorrow and consult pulmonary 12/09/2020; Remains on high flow oxygen, CTA chest to rule out PE Pulmonary consulted History Interval history: Patient remains hypoxemic on 40 L oxygen [with 100% nonrebreather] O2 sats 90% I have seen and examined the patient at the bedside Isolation precautions PPE protocols followed Patient remains on high flow oxygen in mild distress Hospitalist Physical - Constitutional Vitals: Temp Pulse Resp BP Pulse Ox 98.4 F 75 20 127/75 93 12/09/20 03:17 12/09/20 03:17 12/09/20 03:17 12/09/20 03:17 12/09/20 05:00 General appearance: Present: mild distress, well-nourished, other (On high flow oxygen) - EENT Eyes: Present: PERRL, EOM intact - Neck Neck: Present: supple, normal ROM - Respiratory Respiratory effort: labored Respiratory: bilateral: diminished, rhonchi, negative: rales, wheezing - Cardiovascular Rhythm: regular Heart Sounds: Present: S1 & S2 - Extremities Extremities: no ischemia, No edema - Abdominal General gastrointestinal: soft, non-tender, non-distended, normal bowel sounds - Integumentary Integumentary: Present: clear, warm - Psychiatric Psychiatric: appropriate mood/affect, cooperative - Neurologic Neurologic: moves all extremities HEART Score - HEART Score Troponin: Troponin T < 0.010 ng/mL (0.00-0.029) 12/06/20 10:03 Results - Labs CBC & Chem 7: 12/07/20 07:01 12/09/20 09:12 Labs: Laboratory Last Values WBC 7.9 K/mm3 (4.5-11.0) 12/07/20 07:01 RBC 4.68 M/mm3 (3.65-5.03) 12/07/20 07:01 Hgb 15.1 gm/dl (11.8-15.2) 12/07/20 07:01 Hct 43.7 % (35.5-45.6) 12/07/20 07:01 MCV 93 fl (84-94) 12/07/20 07:01 MCH 32 pg (28-32) 12/07/20 07:01 MCHC 35 % (32-34) H 12/07/20 07:01 RDW 13.1 % (13.2-15.2) L 12/07/20 07:01 Plt Count 209 K/mm3 (140-440) 12/07/20 07:01 Lymph % (Auto) 8.6 % (13.4-35.0) L 12/07/20 07:01 [place] % (Auto) 8.6 % (0.0-7.3) H 12/07/20 07:01 Eos % (Auto) 0.0 % (0.0-4.3) 12/07/20 07:01 Baso % (Auto) 0.1 % (0.0-1.8) 12/07/20 07:01 Lymph # (Auto) 0.7 K/mm3 (1.2-5.4) L 12/07/20 07:01 [place] # (Auto) 0.7 K/mm3 (0.0-0.8) 12/07/20 07:01 Eos # (Auto) 0.0 K/mm3 (0.0-0.4) 12/07/20 07:01 Baso # (Auto) 0.0 K/mm3 (0.0-0.1) 12/07/20 07:01 Seg Neutrophils % 82.7 % (40.0-70.0) H 12/07/20 07:01 Seg Neutrophils # 6.6 K/mm3 (1.8-7.7) 12/07/20 07:01 D-Dimer 539.70 ng/mlDDU (0-234) H 12/08/20 13:43 Sodium 142 mmol/L (137-145) 12/08/20 07:26 Potassium 4.5 mmol/L (3.6-5.0) 12/08/20 07:26 Chloride 102.5 mmol/L (98-107) 12/08/20 07:26 Carbon Dioxide 27 mmol/L (22-30) 12/08/20 07:26 Anion Gap 17 mmol/L 12/08/20 07:26 BUN 18 mg/dL (9-20) 12/08/20 07:26 Creatinine 0.5 mg/dL (0.8-1.3) L 12/08/20 07:26 Estimated GFR > 60 ml/min 12/08/20 07:26 BUN/Creatinine Ratio 36 % 12/08/20 07:26 Glucose 136 mg/dL (75-100) H 12/08/20 07:26 POC Glucose 152 mg/dL (70-105) H 12/09/20 08:00 Hemoglobin A1c 5.8 % (4-6) 12/07/20 07:01 Lactic Acid 1.80 mmol/L (0.7-2.0) 12/06/20 19:12 Calcium 8.4 mg/dL (8.4-10.2) 12/08/20 07:26 Ferritin 2970.0 ng/mL (30.0-300.0) H 12/08/20 13:43 Total Bilirubin 0.60 mg/dL (0.1-1.2) 12/08/20 07:26 AST 56 units/L (5-40) H 12/08/20 07:26 ALT 61 units/L (7-56) H 12/08/20 07:26 Alkaline Phosphatase 65 units/L (35-129) 12/08/20 07:26 Lactate Dehydrogenase 662 units/L (91-180) H 12/08/20 13:43 Total Creatine Kinase 261 units/L (55-170) H 12/06/20 10:03 CK-MB (CK-2) 1.4 ng/mL (0.0-4.0) 12/06/20 10:03 CK-MB (CK-2) Rel Index 0.5 (0-4) 12/06/20 10:03 Troponin T < 0.010 ng/mL (0.00-0.029) 12/06/20 10:03 C-Reactive Protein 15.80 mg/dL (0.00-1.30) H 12/08/20 13:43 NT-Pro-B Natriuret Pep 5.79 pg/mL (0-450) 12/06/20 10:03 Total Protein 6.9 g/dL (6.3-8.2) 12/08/20 07:26 Albumin 3.1 g/dL (3.9-5) L 12/08/20 07:26 Albumin/Globulin Ratio 0.8 % 12/08/20 07:26 Procalcitonin 0.07 ng/mL (<0.15) 12/06/20 10:03 Coronavirus (PCR) Positive (Negative) A 12/06/20 Unknown Microbiology: Microbiology 12/06/20 10:03 Peripheral/Venous Blood Culture - Preliminary NO GROWTH AFTER 48 HOURS 12/06/20 10:03 Peripheral/Venous Blood Culture - Preliminary NO GROWTH AFTER 48 HOURS Santillan/IV: Voiding Method Urinal Active Medications - Current Medications Current Medications: Generic Name Dose Route Start Last Admin Trade Name Freq PRN Reason Stop Dose Admin Acetaminophen 650 mg 12/06/20 17:42 12/07/20 08:02 Acetaminophen 325 Mg Tab PO 650 mg Q4H PRN Administration Pain MILD(1-3)/Fever >100.5/BALDERRAMA Benzocaine/Menthol 1 each 12/07/20 17:20 12/07/20 19:19 Benzocaine/Menthol Lozenge MM 1 each Q2HR PRN Administration Sore Throat Dexamethasone 8 mg 12/07/20 10:00 12/08/20 09:30 Dexamethasone 4 Mg/Ml Vial IV 12/15/20 10:01 8 mg DAILY LORENZO Administration Enoxaparin Sodium 40 mg 12/06/20 18:00 12/08/20 09:30 Enoxaparin 40 Mg/0.4 Ml Inj SUB-Q 40 mg QDAY LORENZO Administration Famotidine 20 mg 12/06/20 22:00 12/08/20 21:33 Famotidine 20 Mg Tab PO 20 mg BID LORENZO Administration Guaifenesin 200 mg 12/06/20 17:00 12/08/20 02:20 Guaifenesin 100 Mg/5 Ml Oral Liqd PO 200 mg Q4H PRN Administration Cough Hydromorphone HCl 0.5 mg 12/06/20 17:44 12/09/20 08:07 Hydromorphone 1 Mg/1 Ml Inj IV 0.5 mg Q3H PRN Administration Pain , Severe (7-10) REMDESIVIR 100 mg/ Sodium 250 mls @ 500 mls/hr 12/08/20 21:00 12/09/20 01:05 Chloride IV 12/11/20 21:29 Infused Q24HR@2100 [facility] Infusion Insulin Human Lispro 0 unit 12/07/20 07:30 12/09/20 07:30 Insulin Lispro 100 Unit/Ml SUB-Q 3 unit ACHS LORENZO Administration Protocol Metoclopramide HCl 10 mg 12/06/20 17:44 Metoclopramide 10 Mg/2 Ml Inj IV Q6H PRN Nausea And Vomiting Ondansetron HCl 4 mg 12/06/20 17:42 Ondansetron 4 Mg/2 Ml Inj IV Q8H PRN Nausea And Vomiting Oxycodone/Acetaminophen 1 tab 12/06/20 17:44 12/07/20 17:35 Oxycodone /Acetaminophen 5-325mg Tab PO 1 tab Q6H PRN Administration Pain, Moderate (4-6) Sodium Chloride 10 ml 12/06/20 22:00 12/08/20 21:33 Sodium Chloride 0.9% 10 Ml Flush Syringe IV 10 ml BID LORENZO Administration Sodium Chloride 10 ml 12/06/20 17:42 Sodium Chloride 0.9% 10 Ml Flush Syringe IV PRN PRN LINE FLUSH Sodium Chloride 50 ml 12/07/20 21:00 12/08/20 21:31 Sodium Chloride 0.9% 50 Ml Ivpb IV 12/11/20 21:01 50 ml Q24HR@2100 LORENZO Administration
[2020-12-09 09:56] LABS: Alanine Aminotransferase 81 units/L (7-56); Albumin 3.2 g/dL (3.9-5); BUN/Creatinine Ratio 38; Blood Urea Nitrogen 23 mg/dL (9-20); Calcium 8.4 mg/dL (8.4-10.2); Hemolysis Index 4
[2020-12-09] MEDS: ENOXAPARIN 40 MG/0.4 ML INJ SUB-Q SCH (10:15)
[2020-12-09] MEDS: dexAMETHasone 4 MG/ML VIAL IV SCH (10:15)
[2020-12-09] MEDS: FAMOTIDINE 20 MG TAB PO SCH ×2 (10:15→21:26)
--- NOTE | 2020-12-09 13:28 | Progress Note ---
Assessment and Plan Cultures: Blood culture 12/06/2020 no growth today SARS CoV2 PCR positive Assessment: 40-year-old male with no medical history, admitted on 12/14/2020 secondary to 3 days history of cough, malaise, fever, body aches, and shortness of breath. Patient was diagnosed with COVID-19 7 days before admission: #Severe COVID pneumonia: CXR with severe bilateral airspace disease. Inflammatory markers elevated. D-dimer 400.5. CRP 15.8. Procalcitonin 0.07. #Acute hypoxemic respiratory failure: remains on high flow nasal cannula 40L, 100%. #Elevated LFTs: not better, from COVID #Hyperglycemia ? Diabetes Recommendations: -Continue Dexamethasone 6 mg IV/PO daily for 10 days -Continue Remdesivir for 5 days (CrCl>30 mg/mL) -Received Tocilizumab 8 mg/kg IV x 1 on 12/08/2020 -Monitor inflammatory markers - ferritin, Ddimer, CRP, LDH -Monitor liver function test on Remdesivir -Continue anticoagulation per System Protocol Sabrina No MD, FACP [facility] ([facility] O: [phone] F: [phone] Subjective Date of service: 12/09/20 Principal diagnosis: COVID Interval history: Low-grade fever yesterday. Afebrile today. Remains hypoxic, on high flow nasal cannula. Objective - Exam Narrative Exam: Physical Exam (reviewed in chart to minimize risk of transmission) Constitutional: deferred Head, Ears, Nose: deferred Eyes: deferred Neck: deferred Oral: deferred Cardiovascular: deferred Respiratory: deferred GI: deferred Musculoskeletal: deferred Skin: deferred Hem/Lymphatic: deferred Psych: deferred Neurological: deferred - Constitutional Vitals: Vital Signs Temp Pulse Resp BP Pulse Ox 98.4 F 75 20 127/75 82 L 12/09/20 03:17 12/09/20 03:17 12/09/20 03:17 12/09/20 03:17 12/09/20 11:00 Temperature -Last 24 Hours Temperature 98.4 F Temperature 99.0 F - Labs CBC & Chem 7: 12/07/20 07:01 12/09/20 09:12 Labs: Abnormal lab results 12/08/20 12/08/20 12/08/20 Range/Units 13:43 13:43 13:43 D-Dimer 539.70 H (0-234) ng/mlDDU BUN (9-20) mg/dL Creatinine (0.8-1.3) mg/dL Glucose (75-100) mg/dL POC Glucose (70-105) mg/dL Ferritin 2970.0 H (30.0-300.0) ng/mL AST (5-40) units/L ALT (7-56) units/L Lactate Dehydrogenase 662 H (91-180) units/L C-Reactive Protein 15.80 H (0.00-1.30) mg/dL Albumin (3.9-5) g/dL 12/08/20 12/08/20 12/09/20 Range/Units 16:22 21:17 08:00 D-Dimer (0-234) ng/mlDDU BUN (9-20) mg/dL Creatinine (0.8-1.3) mg/dL Glucose (75-100) mg/dL POC Glucose 223 H 152 H 152 H (70-105) mg/dL Ferritin (30.0-300.0) ng/mL AST (5-40) units/L ALT (7-56) units/L Lactate Dehydrogenase (91-180) units/L C-Reactive Protein (0.00-1.30) mg/dL Albumin (3.9-5) g/dL 12/09/20 12/09/20 Range/Units 09:12 11:54 D-Dimer (0-234) ng/mlDDU BUN 23 H (9-20) mg/dL Creatinine 0.6 L (0.8-1.3) mg/dL Glucose 167 H (75-100) mg/dL POC Glucose 203 H (70-105) mg/dL Ferritin (30.0-300.0) ng/mL AST 48 H (5-40) units/L ALT 81 H (7-56) units/L Lactate Dehydrogenase (91-180) units/L C-Reactive Protein (0.00-1.30) mg/dL Albumin 3.2 L (3.9-5) g/dL
[2020-12-09] MEDS: LORazepam 2 MG/ML VIAL IV PRN (21:26)
[2020-12-09] MEDS: REMDESIVIR 100 MG in SODIUM CHLORIDE 0.9% 250ML 250 ML IV SCH (21:28)
[2020-12-09] MEDS: SODIUM CHLORIDE 0.9% 50 ML IVPB IV SCH (21:28)
[2020-12-10] MEDS: oxyCODONE /ACETAMINOPHEN 5-325MG TAB PO PRN (07:15)
[2020-12-10] MEDS: guaiFENesin 100 MG/5 ML ORAL LIQD PO PRN (07:16)
[2020-12-10] MEDS: LORazepam 2 MG/ML VIAL IV PRN ×2 (07:24→13:48)
[2020-12-10 08:42] LABS: Alanine Aminotransferase 64 units/L (7-56); BUN/Creatinine Ratio 34; Blood Urea Nitrogen 24 mg/dL (9-20); Calcium 8.3 mg/dL (8.4-10.2); Hemolysis Index 20
[2020-12-10] MEDS: INSULIN LISPRO 100 UNIT/ML SUB-Q SCH ×4 (09:43→22:09)
--- NOTE | 2020-12-10 09:44 | Progress Note ---
Assessment and Plan Assessment and plan: -- Acute respiratory failure with severe hypoxia Current Visit: Yes Status: Acute Patient is on continuous BiPAP with 100% FiO2 Still hypoxemic with O2 sats of 89%, tachypnea with RR 40 to 49/min We will transfer the patient to [facility] for close observation and monitoring Intubate if needed, informed mounter Dr. Ayers --COVID-19 infection Current Visit: Yes Status: Acute Continue steroids total 10 days Consider remdesivir per protocol for 5 days Home O2 evaluation, Prone positioning High inflammatory markers D-dimer 539 Ferritin 2970 LDH 662 CRP 15.8 Received Tocilizumab [Actemra] 100 mL 12/08/2020 CTA chest requested, pulmonary consulted --Bilateral pneumonia Current Visit: Yes Status: Acute On empiric IV Rocephin and Zithromax for now DC antibiotics as procalcitonin is low -- SIRS (systemic inflammatory response syndrome) Current Visit: Yes Status: Acute Patient's clinical picture is consistent with systemic inflammatory response syndrome. D-dimer is 409, lactic acid is 2.99, ferritin is 199, LDH is 595 and CRP is 15. 6. -- Hyponatremia/resolved Current Visit: Yes Status: Acute Closely monitor electrolytes --Hyperglycemia Current Visit: Yes Status: Acute Accu-Chek sliding scale coverage check hemoglobin A1c Probably secondary to steroids, HbA1c is less than 6 Closely monitor --DVT prophylaxis Current Visit: Yes Status: Acute On Lovenox subcu Closely monitor the patient and adjust management as needed Plan of care reviewed with the patient and his nurse I discussed in detail with pulmonary critical and requested consult Patient is critically ill with very poor prognosis Patient initially did not want me to discuss with any family members However later he gave contact number, will try to reach the family and update patient's condition Total critical care time more than 62 minutes The high probability of a clinically significant, sudden or life threatening deterioration of the [pulmonary, endocrine, and metabolic] system(s) required my full and direct attention, intervention and personal management. The aggregate critical care time was [62] minutes. This time is in addition to time spent performing reported procedures but includes the following: [x] Data Review and interpretation [x] Patient assessment and monitoring of vital signs [x] Documentation [x] Medication orders and management 12/07/2020; COVID-19 positive test With hypoxia on high flow oxygen, wean as tolerated Patient is placed on steroids, started remdesivir per protocol Inflammatory markers, prone positioning ID recommendations noted and appreciated 12/08/2020; Patient remains on high flow oxygen, elevated D-dimers Will check CTA chest tomorrow and consult pulmonary 12/09/2020; Remains on high flow oxygen, CTA chest to rule out PE Pulmonary consulted, informed 12/10/2020; patient is in acute respiratory distress and failure On continuous BiPAP, 100% oxygen, sats only 89% Severely tachypneic respiratory rate between 40 to 49/min We will transfer the patient to [facility] for close monitoring Intubate if needed, pulmonary critical notified History Interval history: I have seen and examined the patient and his room at the bedside patient's chart and medications reviewed Isolation precautions PPE protocols followed Patient is severely hypoxemic in mild distress On continuous BiPAP with 100% oxygen remains hypoxic with O2 sats of 89% Tachypneic respiratory rate 39 to 40/min Hospitalist Physical - Constitutional Vitals: Temp Pulse Resp BP Pulse Ox 99.3 F 72 32 H 113/62 89 12/10/20 05:43 12/10/20 08:35 12/10/20 08:35 12/10/20 05:43 12/10/20 08:40 General appearance: Present: mild distress, well-nourished, other (On continues BiPAP, hypoxic, tachypneic) - EENT Eyes: Present: PERRL, EOM intact - Neck Neck: Present: supple, normal ROM - Respiratory Respiratory effort: labored, other (Tachypneic RR 40 to 49%) Respiratory: bilateral: diminished, rhonchi, negative: rales, wheezing - Cardiovascular Rhythm: regular Heart Sounds: Present: S1 & S2 - Extremities Extremities: no ischemia, No edema - Abdominal General gastrointestinal: soft, non-tender, non-distended, normal bowel sounds - Integumentary Integumentary: Present: clear, warm - Psychiatric Psychiatric: appropriate mood/affect, cooperative - Neurologic Neurologic: moves all extremities HEART Score - HEART Score Troponin: Troponin T < 0.010 ng/mL (0.00-0.029) 12/06/20 10:03 Results - Labs CBC & Chem 7: 12/07/20 07:01 12/10/20 07:46 Labs: Laboratory Last Values WBC 7.9 K/mm3 (4.5-11.0) 12/07/20 07:01 RBC 4.68 M/mm3 (3.65-5.03) 12/07/20 07:01 Hgb 15.1 gm/dl (11.8-15.2) 12/07/20 07:01 Hct 43.7 % (35.5-45.6) 12/07/20 07:01 MCV 93 fl (84-94) 12/07/20 07:01 MCH 32 pg (28-32) 12/07/20 07:01 MCHC 35 % (32-34) H 12/07/20 07:01 RDW 13.1 % (13.2-15.2) L 12/07/20 07:01 Plt Count 209 K/mm3 (140-440) 12/07/20 07:01 Lymph % (Auto) 8.6 % (13.4-35.0) L 12/07/20 07:01 [place] % (Auto) 8.6 % (0.0-7.3) H 12/07/20 07:01 Eos % (Auto) 0.0 % (0.0-4.3) 12/07/20 07:01 Baso % (Auto) 0.1 % (0.0-1.8) 12/07/20 07:01 Lymph # (Auto) 0.7 K/mm3 (1.2-5.4) L 12/07/20 07:01 [place] # (Auto) 0.7 K/mm3 (0.0-0.8) 12/07/20 07:01 Eos # (Auto) 0.0 K/mm3 (0.0-0.4) 12/07/20 07:01 Baso # (Auto) 0.0 K/mm3 (0.0-0.1) 12/07/20 07:01 Seg Neutrophils % 82.7 % (40.0-70.0) H 12/07/20 07:01 Seg Neutrophils # 6.6 K/mm3 (1.8-7.7) 12/07/20 07:01 D-Dimer 539.70 ng/mlDDU (0-234) H 12/08/20 13:43 ABG pH 7.449 (7.320-7.450) 12/10/20 08:40 POC ABG pCO2 40.8 mmHg (32.0-48.0) 12/10/20 08:40 POC ABG pO2 55.3 mmHg (83-108) L 12/10/20 08:40 POC ABG HCO3 27.7 12/10/20 08:40 ABG O2 Saturation 88.3 (0-100) 12/10/20 08:40 POC ABG Base Excess 3.4 12/10/20 08:40 ABG Hemoglobin 16.1 (12.0-17.5) 12/10/20 08:40 ABG Oxyhemoglobin 87.3 (94-98) L 12/10/20 08:40 ABG Methemoglobin 0.3 (0.0-1.5) 12/10/20 08:40 ABG Sodium 143.0 mmol/L (136.0-145.0) 12/10/20 08:40 ABG Potassium 4.3 mmol/L (3.40-4.50) 12/10/20 08:40 ABG Chloride 105.0 mmol/L (98-107) 12/10/20 08:40 ABG Glucose 143 mg/dL (65-95) H 12/10/20 08:40 Carboxyhemoglobin 0.8 (0.5-1.5) 12/10/20 08:40 FiO2 % 100.0 12/10/20 08:40 Sodium 145 mmol/L (137-145) 12/10/20 07:46 Potassium 4.5 mmol/L (3.6-5.0) 12/10/20 07:46 Chloride 105.1 mmol/L (98-107) 12/10/20 07:46 Carbon Dioxide 28 mmol/L (22-30) 12/10/20 07:46 Anion Gap 16 mmol/L 12/10/20 07:46 BUN 24 mg/dL (9-20) H 12/10/20 07:46 Creatinine 0.7 mg/dL (0.8-1.3) L 12/10/20 07:46 Estimated GFR > 60 ml/min 12/10/20 07:46 BUN/Creatinine Ratio 34 % 12/10/20 07:46 Glucose 160 mg/dL (75-100) H 12/10/20 07:46 POC Glucose 135 mg/dL (70-105) H 12/10/20 08:22 Hemoglobin A1c 5.8 % (4-6) 12/07/20 07:01 Lactic Acid 1.80 mmol/L (0.7-2.0) 12/06/20 19:12 Calcium 8.3 mg/dL (8.4-10.2) L 12/10/20 07:46 Ferritin 2970.0 ng/mL (30.0-300.0) H 12/08/20 13:43 Total Bilirubin 0.70 mg/dL (0.1-1.2) 12/10/20 07:46 AST 35 units/L (5-40) 12/10/20 07:46 ALT 64 units/L (7-56) H 12/10/20 07:46 Alkaline Phosphatase 80 units/L (35-129) 12/10/20 07:46 Lactate Dehydrogenase 662 units/L (91-180) H 12/08/20 13:43 Total Creatine Kinase 261 units/L (55-170) H 12/06/20 10:03 CK-MB (CK-2) 1.4 ng/mL (0.0-4.0) 12/06/20 10:03 CK-MB (CK-2) Rel Index 0.5 (0-4) 12/06/20 10:03 Troponin T < 0.010 ng/mL (0.00-0.029) 12/06/20 10:03 C-Reactive Protein 15.80 mg/dL (0.00-1.30) H 12/08/20 13:43 NT-Pro-B Natriuret Pep 5.79 pg/mL (0-450) 12/06/20 10:03 Total Protein 6.7 g/dL (6.3-8.2) 12/10/20 07:46 Albumin 3.0 g/dL (3.9-5) L 12/10/20 07:46 Albumin/Globulin Ratio 0.8 % 12/10/20 07:46 Procalcitonin 0.07 ng/mL (<0.15) 12/06/20 10:03 Arterial Blood Glucose 143 mg/dL (65-95) H 12/10/20 08:40 Arterial Blood Ionized Calcium 4.4 mg/dL (4.6-5.3) L 12/10/20 08:40 Coronavirus (PCR) Positive (Negative) A 12/06/20 Unknown Microbiology: Microbiology 12/06/20 10:03 Peripheral/Venous Blood Culture - Preliminary NO GROWTH AFTER 72 HOURS 12/06/20 10:03 Peripheral/Venous Blood Culture - Preliminary NO GROWTH AFTER 72 HOURS [place]/IV: Voiding Method Urinal Active Medications - Current Medications Current Medications: Generic Name Dose Route Start Last Admin Trade Name Freq PRN Reason Stop Dose Admin Acetaminophen 650 mg 12/06/20 17:42 12/07/20 08:02 Acetaminophen 325 Mg Tab PO 650 mg Q4H PRN Administration Pain MILD(1-3)/Fever >100.5/BALDERRAMA Benzocaine/Menthol 1 each 12/07/20 17:20 12/07/20 19:19 Benzocaine/Menthol Lozenge MM 1 each Q2HR PRN Administration Sore Throat Dexamethasone 8 mg 12/07/20 10:00 12/09/20 10:15 Dexamethasone 4 Mg/Ml Vial IV 12/15/20 10:01 8 mg DAILY LORENZO Administration Enoxaparin Sodium 40 mg 12/06/20 18:00 12/09/20 10:15 Enoxaparin 40 Mg/0.4 Ml Inj SUB-Q 40 mg QDAY LORENZO Administration Famotidine 20 mg 12/06/20 22:00 12/09/20 21:26 Famotidine 20 Mg Tab PO 20 mg BID LORENZO Administration Guaifenesin 200 mg 12/06/20 17:00 12/10/20 07:16 Guaifenesin 100 Mg/5 Ml Oral Liqd PO 200 mg Q4H PRN Administration Cough Hydromorphone HCl 0.5 mg 12/06/20 17:44 12/09/20 08:07 Hydromorphone 1 Mg/1 Ml Inj IV 0.5 mg Q3H PRN Administration Pain , Severe (7-10) REMDESIVIR 100 mg/ Sodium 250 mls @ 500 mls/hr 12/08/20 21:00 12/09/20 21:28 Chloride IV 12/11/20 21:29 500 mls/hr Q24HR@2100 LORENZO Administration Insulin Human Lispro 0 unit 12/07/20 07:30 12/09/20 21:29 Insulin Lispro 100 Unit/Ml SUB-Q 3 unit ACHS LORENZO Administration Protocol Lorazepam 1 mg 12/09/20 20:55 12/10/20 07:24 Lorazepam 2 Mg/Ml Vial IV 1 mg Q4H PRN Administration Agitation Metoclopramide HCl 10 mg 12/06/20 17:44 Metoclopramide 10 Mg/2 Ml Inj IV Q6H PRN Nausea And Vomiting Ondansetron HCl 4 mg 12/06/20 17:42 Ondansetron 4 Mg/2 Ml Inj IV Q8H PRN Nausea And Vomiting Oxycodone/Acetaminophen 1 tab 12/06/20 17:44 12/10/20 07:15 Oxycodone /Acetaminophen 5-325mg Tab PO 1 tab Q6H PRN Administration Pain, Moderate (4-6) Sodium Chloride 10 ml 12/06/20 22:00 12/09/20 21:31 Sodium Chloride 0.9% 10 Ml Flush Syringe IV 10 ml BID LORENZO Administration Sodium Chloride 10 ml 12/06/20 17:42 Sodium Chloride 0.9% 10 Ml Flush Syringe IV PRN PRN LINE FLUSH Sodium Chloride 50 ml 12/07/20 21:00 12/09/20 21:28 Sodium Chloride 0.9% 50 Ml Ivpb IV 12/11/20 21:01 50 ml Q24HR@2100 LORENZO Administration
[2020-12-10] MEDS: ENOXAPARIN 40 MG/0.4 ML INJ SUB-Q SCH (09:53)
[2020-12-10] MEDS: dexAMETHasone 4 MG/ML VIAL IV SCH (09:53)
[2020-12-10] MEDS: FAMOTIDINE 20 MG TAB PO SCH ×2 (10:20→22:09)
--- NOTE | 2020-12-10 11:36 | Progress Note ---
Assessment and Plan Cultures: Blood culture 12/06/2020 no growth today SARS CoV2 PCR positive Assessment: 40-year-old male with no medical history, admitted on 12/14/2020 secondary to 3 days history of cough, malaise, fever, body aches, and shortness of breath. Patient was diagnosed with COVID-19 7 days before admission: #Severe COVID pneumonia: CXR with severe bilateral airspace disease. Inflammatory markers elevated. D-dimer 400.5. CRP 15.8. Procalcitonin 0.07. #Acute hypoxemic respiratory failure: worsened, on BiPAP. #Elevated LFTs: likely from COVID #Hyperglycemia ? Diabetes Recommendations: -Continue Dexamethasone 6 mg IV/PO daily for 10 days -Continue Remdesivir for 5 days (CrCl>30 mg/mL) -Received Tocilizumab 8 mg/kg IV x 1 on 12/08/2020 -Monitor inflammatory markers - ferritin, Ddimer, CRP, LDH -Monitor liver function test on Remdesivir -Continue anticoagulation per System Protocol -Worsening on steroids, remdesivir and tocilizumab, poor prognosis ID will sign off. Please reconsult as needed. Sabrina No MD, FACP [facility] O: [phone] F: [phone] Subjective Date of service: 12/10/20 Principal diagnosis: COVID Interval history: Afebrile. Remains hypoxic, was placed on BiPAP, moved to [facility]. Objective - Exam Narrative Exam: Physical Exam (reviewed in chart to minimize risk of transmission) Constitutional: deferred Head, Ears, Nose: deferred Eyes: deferred Neck: deferred Oral: deferred Cardiovascular: deferred Respiratory: deferred GI: deferred Musculoskeletal: deferred Skin: deferred Hem/Lymphatic: deferred Psych: deferred Neurological: deferred - Constitutional Vitals: Vital Signs Temp Pulse Resp BP Pulse Ox 99.3 F 85 33 H 113/62 91 12/10/20 05:43 12/10/20 11:28 12/10/20 11:28 12/10/20 05:43 12/10/20 11:28 Temperature -Last 24 Hours Temperature 99.3 F Temperature 98.6 F Temperature 98.2 F - Labs CBC & Chem 7: 12/07/20 07:01 12/10/20 07:46 Labs: Abnormal lab results 12/09/20 12/09/20 12/09/20 Range/Units 11:54 16:17 21:00 POC ABG pO2 (83-108) mmHg ABG Oxyhemoglobin (94-98) ABG Glucose (65-95) mg/dL BUN (9-20) mg/dL Creatinine (0.8-1.3) mg/dL Glucose (75-100) mg/dL POC Glucose 203 H 232 H 155 H (70-105) mg/dL Calcium (8.4-10.2) mg/dL ALT (7-56) units/L Albumin (3.9-5) g/dL Arterial Blood Glucose (65-95) mg/dL Arterial Blood Ionized Calcium (4.6-5.3) mg/dL 12/10/20 12/10/20 12/10/20 Range/Units 07:46 08:22 08:40 POC ABG pO2 55.3 L (83-108) mmHg ABG Oxyhemoglobin 87.3 L (94-98) ABG Glucose 143 H (65-95) mg/dL BUN 24 H (9-20) mg/dL Creatinine 0.7 L (0.8-1.3) mg/dL Glucose 160 H (75-100) mg/dL POC Glucose 135 H (70-105) mg/dL Calcium 8.3 L (8.4-10.2) mg/dL ALT 64 H (7-56) units/L Albumin 3.0 L (3.9-5) g/dL Arterial Blood Glucose 143 H (65-95) mg/dL Arterial Blood Ionized Calcium 4.4 L (4.6-5.3) mg/dL
--- NOTE | 2020-12-10 13:09 | Consultation ---
History of Present Illness Consult date: 12/10/20 Requesting physician: VERN CHU Reason for consult: pneumonia, other (Acute Hypoxemic Resp Failure; COVID-19 infection) History of present illness: PULMONARY/CCM CONSULT NOTE (Full dictation # [id number]) Please see dictated notes for full details Medications and Allergies Allergies Allergy/AdvReac Type Severity Reaction Status Date / Time No Known Allergies Allergy Verified 12/06/20 09:22 Home Medications Medication Instructions Recorded Confirmed Last Taken Type No Known Home Medications [No 12/07/20 12/07/20 Unknown History Reported Home Medications] Active Meds: Active Medications Acetaminophen (Acetaminophen 325 Mg Tab) 650 mg PO Q4H PRN PRN Reason: Pain MILD(1-3)/Fever >100.5/BALDERRAMA Last Admin: 12/07/20 08:02 Dose: 650 mg Documented by: Benzocaine/Menthol (Benzocaine/Menthol Lozenge) 1 each MM Q2HR PRN PRN Reason: Sore Throat Last Admin: 12/07/20 19:19 Dose: 1 each Documented by: Dexamethasone (Dexamethasone 4 Mg/Ml Vial) 8 mg IV DAILY [facility] Stop: 12/15/20 10:01 Last Admin: 12/10/20 09:53 Dose: 8 mg Documented by: Enoxaparin Sodium (Enoxaparin 40 Mg/0.4 Ml Inj) 40 mg SUB-Q QDAY [facility] Last Admin: 12/10/20 09:53 Dose: 40 mg Documented by: Famotidine (Famotidine 20 Mg Tab) 20 mg PO BID [facility] Last Admin: 12/10/20 10:20 Dose: Not Given Documented by: Guaifenesin (Guaifenesin 100 Mg/5 Ml Oral Liqd) 200 mg PO Q4H PRN PRN Reason: Cough Last Admin: 12/10/20 07:16 Dose: 200 mg Documented by: Hydromorphone HCl (Hydromorphone 1 Mg/1 Ml Inj) 0.5 mg IV Q3H PRN PRN Reason: Pain , Severe (7-10) Last Admin: 12/09/20 08:07 Dose: 0.5 mg Documented by: REMDESIVIR 100 mg/ Sodium (Chloride) 250 mls @ 500 mls/hr IV Q24HR@2100 [facility] Stop: 12/11/20 21:29 Last Admin: 12/09/20 21:28 Dose: 500 mls/hr Documented by: Insulin Human Lispro (Insulin Lispro 100 Unit/Ml) 0 unit SUB-Q ACHS [facility]; Protocol Last Admin: 12/10/20 12:30 Dose: Not Given Documented by: Lorazepam (Lorazepam 2 Mg/Ml Vial) 1 mg IV Q4H PRN PRN Reason: Agitation Last Admin: 12/10/20 07:24 Dose: 1 mg Documented by: Metoclopramide HCl (Metoclopramide 10 Mg/2 Ml Inj) 10 mg IV Q6H PRN PRN Reason: Nausea And Vomiting Ondansetron HCl (Ondansetron 4 Mg/2 Ml Inj) 4 mg IV Q8H PRN PRN Reason: Nausea And Vomiting Oxycodone/Acetaminophen (Oxycodone /Acetaminophen 5-325mg Tab) 1 tab PO Q6H PRN PRN Reason: Pain, Moderate (4-6) Last Admin: 12/10/20 07:15 Dose: 1 tab Documented by: Sodium Chloride (Sodium Chloride 0.9% 10 Ml Flush Syringe) 10 ml IV BID [facility] Last Admin: 12/10/20 12:30 Dose: 10 ml Documented by: Sodium Chloride (Sodium Chloride 0.9% 10 Ml Flush Syringe) 10 ml IV PRN PRN PRN Reason: LINE FLUSH Sodium Chloride (Sodium Chloride 0.9% 50 Ml Ivpb) 50 ml IV Q24HR@2100 [facility] Stop: 12/11/20 21:01 Last Admin: 12/09/20 21:28 Dose: 50 ml Documented by: Physical Examination Vital signs: Vital Signs Temp 100.4 F H 12/06/20 09:20 Results - Laboratory Findings CBC and BMP: 12/07/20 07:01 12/10/20 07:46 ABG ABG pH 7.449 (7.320-7.450) 12/10/20 08:40 POC ABG pCO2 40.8 mmHg (32.0-48.0) 12/10/20 08:40 POC ABG pO2 55.3 mmHg (83-108) L 12/10/20 08:40 POC ABG HCO3 27.7 12/10/20 08:40 ABG O2 Saturation 88.3 (0-100) 12/10/20 08:40 PT/INR, D-dimer D-Dimer 539.70 ng/mlDDU (0-234) H 12/08/20 13:43 Abnormal lab findings: Abnormal Labs 12/06/20 12/06/20 12/06/20 10:03 10:03 10:03 RBC 5.06 H Hgb 16.6 H Hct 46.5 H MCH 33 H MCHC 36 H RDW 13.0 L Lymph % (Auto) 12.3 L Rush % (Auto) Lymph # (Auto) 0.6 L Seg Neutrophils % 80.5 H D-Dimer POC ABG pO2 ABG Oxyhemoglobin ABG Glucose Sodium 136 L Chloride 96.3 L Carbon Dioxide BUN Creatinine 0.7 L Glucose 229 H POC Glucose Lactic Acid 2.90 H* Calcium Ferritin AST 46 H ALT Lactate Dehydrogenase Total Creatine Kinase 261 H C-Reactive Protein Albumin 3.7 L Arterial Blood Glucose Arterial Blood Ionized Calcium Coronavirus (PCR) 12/06/20 12/06/20 12/06/20 10:03 10:03 10:03 RBC Hgb Hct MCH MCHC RDW Lymph % (Auto) Rush % (Auto) Lymph # (Auto) Seg Neutrophils % D-Dimer 400.56 H POC ABG pO2 ABG Oxyhemoglobin ABG Glucose Sodium Chloride Carbon Dioxide BUN Creatinine Glucose 229 H POC Glucose Lactic Acid Calcium Ferritin 1901.0 H AST ALT Lactate Dehydrogenase 395 H Total Creatine Kinase C-Reactive Protein 15.80 H Albumin Arterial Blood Glucose Arterial Blood Ionized Calcium Coronavirus (PCR) 12/06/20 12/07/20 12/07/20 Unknown 07:01 07:01 RBC Hgb Hct MCH MCHC 35 H RDW 13.1 L Lymph % (Auto) 8.6 L Rush % (Auto) 8.6 H Lymph # (Auto) 0.7 L Seg Neutrophils % 82.7 H D-Dimer POC ABG pO2 ABG Oxyhemoglobin ABG Glucose Sodium Chloride Carbon Dioxide BUN Creatinine 0.5 L Glucose 147 H POC Glucose Lactic Acid Calcium 8.3 L Ferritin AST ALT Lactate Dehydrogenase Total Creatine Kinase C-Reactive Protein Albumin 3.4 L Arterial Blood Glucose Arterial Blood Ionized Calcium Coronavirus (PCR) Positive A 12/07/20 12/07/20 12/07/20 07:27 12:23 16:00 RBC Hgb Hct MCH MCHC RDW Lymph % (Auto) Rush % (Auto) Lymph # (Auto) Seg Neutrophils % D-Dimer POC ABG pO2 ABG Oxyhemoglobin ABG Glucose Sodium Chloride Carbon Dioxide BUN Creatinine Glucose POC Glucose 140 H 144 H 222 H Lactic Acid Calcium Ferritin AST ALT Lactate Dehydrogenase Total Creatine Kinase C-Reactive Protein Albumin Arterial Blood Glucose Arterial Blood Ionized Calcium Coronavirus (PCR) 12/07/20 12/07/20 12/08/20 19:12 21:50 07:26 RBC Hgb Hct MCH MCHC RDW Lymph % (Auto) Rush % (Auto) Lymph # (Auto) Seg Neutrophils % D-Dimer POC ABG pO2 ABG Oxyhemoglobin ABG Glucose Sodium Chloride Carbon Dioxide 32 H BUN Creatinine 0.6 L 0.5 L Glucose 262 H 136 H POC Glucose 214 H Lactic Acid Calcium 8.2 L Ferritin AST 69 H 56 H ALT 64 H 61 H Lactate Dehydrogenase Total Creatine Kinase C-Reactive Protein Albumin 3.0 L 3.1 L Arterial Blood Glucose Arterial Blood Ionized Calcium Coronavirus (PCR) 12/08/20 12/08/20 12/08/20 07:58 12:06 13:43 RBC Hgb Hct MCH MCHC RDW Lymph % (Auto) Rush % (Auto) Lymph # (Auto) Seg Neutrophils % D-Dimer 539.70 H POC ABG pO2 ABG Oxyhemoglobin ABG Glucose Sodium Chloride Carbon Dioxide BUN Creatinine Glucose POC Glucose 136 H 139 H Lactic Acid Calcium Ferritin AST ALT Lactate Dehydrogenase Total Creatine Kinase C-Reactive Protein Albumin Arterial Blood Glucose Arterial Blood Ionized Calcium Coronavirus (PCR) 12/08/20 12/08/20 12/08/20 13:43 13:43 16:22 RBC Hgb Hct MCH MCHC RDW Lymph % (Auto) Rush % (Auto) Lymph # (Auto) Seg Neutrophils % D-Dimer POC ABG pO2 ABG Oxyhemoglobin ABG Glucose Sodium Chloride Carbon Dioxide BUN Creatinine Glucose POC Glucose 223 H Lactic Acid Calcium Ferritin 2970.0 H AST ALT Lactate Dehydrogenase 662 H Total Creatine Kinase C-Reactive Protein 15.80 H Albumin Arterial Blood Glucose Arterial Blood Ionized Calcium Coronavirus (PCR) 12/08/20 12/09/20 12/09/20 21:17 08:00 09:12 RBC Hgb Hct MCH MCHC RDW Lymph % (Auto) Rush % (Auto) Lymph # (Auto) Seg Neutrophils % D-Dimer POC ABG pO2 ABG Oxyhemoglobin ABG Glucose Sodium Chloride Carbon Dioxide BUN 23 H Creatinine 0.6 L Glucose 167 H POC Glucose 152 H 152 H Lactic Acid Calcium Ferritin AST 48 H ALT 81 H Lactate Dehydrogenase Total Creatine Kinase C-Reactive Protein Albumin 3.2 L Arterial Blood Glucose Arterial Blood Ionized Calcium Coronavirus (PCR) 12/09/20 12/09/20 12/09/20 11:54 16:17 21:00 RBC Hgb Hct MCH MCHC RDW Lymph % (Auto) Rush % (Auto) Lymph # (Auto) Seg Neutrophils % D-Dimer POC ABG pO2 ABG Oxyhemoglobin ABG Glucose Sodium Chloride Carbon Dioxide BUN Creatinine Glucose POC Glucose 203 H 232 H 155 H Lactic Acid Calcium Ferritin AST ALT Lactate Dehydrogenase Total Creatine Kinase C-Reactive Protein Albumin Arterial Blood Glucose Arterial Blood Ionized Calcium Coronavirus (PCR) 12/10/20 12/10/20 12/10/20 07:46 08:22 08:40 RBC Hgb Hct MCH MCHC RDW Lymph % (Auto) Rush % (Auto) Lymph # (Auto) Seg Neutrophils % D-Dimer POC ABG pO2 55.3 L ABG Oxyhemoglobin 87.3 L ABG Glucose 143 H Sodium Chloride Carbon Dioxide BUN 24 H Creatinine 0.7 L Glucose 160 H POC Glucose 135 H Lactic Acid Calcium 8.3 L Ferritin AST ALT 64 H Lactate Dehydrogenase Total Creatine Kinase C-Reactive Protein Albumin 3.0 L Arterial Blood Glucose 143 H Arterial Blood Ionized Calcium 4.4 L Coronavirus (PCR) 12/10/20 11:47 RBC Hgb Hct MCH MCHC RDW Lymph % (Auto) Rush % (Auto) Lymph # (Auto) Seg Neutrophils % D-Dimer POC ABG pO2 ABG Oxyhemoglobin ABG Glucose Sodium Chloride Carbon Dioxide BUN Creatinine Glucose POC Glucose 121 H Lactic Acid Calcium Ferritin AST ALT Lactate Dehydrogenase Total Creatine Kinase C-Reactive Protein Albumin Arterial Blood Glucose Arterial Blood Ionized Calcium Coronavirus (PCR)
[2020-12-10] MEDS ORDERED: LORazepam 2 MG/ML VIAL IV PRN (13:22)
[2020-12-10] MEDS: ONDANSETRON 4 MG/2 ML INJ IV PRN (13:54)
[2020-12-10] MEDS: REMDESIVIR 100 MG in SODIUM CHLORIDE 0.9% 250ML 250 ML IV SCH (22:10)
[2020-12-10] MEDS: SODIUM CHLORIDE 0.9% 50 ML IVPB IV SCH (22:10)
--- NOTE | 2020-12-11 01:30 | Consultation ---
DATE OF CONSULTATION: 12/10/2020 PULMONARY CRITICAL CARE CONSULTATION CONSULTING PHYSICIAN: Dr. Suarez. REASON FOR CONSULTATION: Acute hypoxemic respiratory failure, COVID-19 infection. CHIEF COMPLAINT AND HISTORY OF PRESENT ILLNESS: The patient is a 40-year-old obese male with past medical history significant for really tobacco abuse, but quit about 5 years ago according to him, came in complaining of increasing shortness of breath over the preceding 3 days. He was diagnosed with COVID-19 infection about 7 days prior. He has had paroxysms of cough that is dry and nonproductive. He denied any hemoptysis. He had had subjective fevers on and off. He complained of chest pain, abdominal pain, pleuritic chest pain for that. He denied nausea or vomiting. He was found hypoxemic and on room air and he was started on supplemental oxygen. He is not vaccinated. He was not on home oxygen. He had a community exposure to COVID-19. He was admitted to the medical floor; however, he has decompensated rapidly and is now on continuous BiPAP therapy. We are asked to assist with management. When I stopped by to see him, he was on the BiPAP machine, IPAP 20, EPAP 10 at a rate of 16, O2 sats were around 88%. His work of breathing was increased, but better since he had been placed on BiPAP. He was responsive. He denied nausea and vomiting. He denied any fevers or chills. Denied any new-onset leg pain or swelling, either unilaterally or bilaterally or any suggestion of a deep venous thrombosis. This really is as much of the history of presentation as I have. PAST MEDICAL HISTORY: He is obese, remote history of tobacco abuse. PAST SURGICAL HISTORY: Denies. MEDICATIONS: He was on at the time I stopped by to see him, according to the medication administration record included the following: Tylenol 650 mg p.o. q. 4 hours p.r.n. mild pain or fevers, Cepacol Extra Strength p.r.n. q. 2 hours for sore throat, Decadron 8 mg IV daily, Lovenox 40 mg subQ daily, Pepcid 20 mg p.o. b.i.d., p.r.n. Robitussin cough syrup, Dilaudid 0.5 mg IV 3 hours p.r.n. severe pain, insulin via sliding scale, Ativan 1 mg IV q. 4 hours p.r.n. agitation, Reglan 10 mg IV q 6 hours p.r.n. nausea and vomiting, Zofran 4 mg IV q. 8 hours p.r.n. nausea and vomiting, Percocet 5/325 one tablet p.o. q. 6 hours p.r.n. moderate pain and remdesivir had been started, was on bag number 1. ALLERGIES: No known drug allergies. DIET: Obese gentleman. Denies acute weight loss or gain in the preceding few weeks to months. FAMILY AND SOCIAL HISTORY: Lives in the community. Denies current drug abuse. He does drink alcohol frequently according to the records and he stopped smoking about 5 years prior, but has about a [id number] tobacco smoking history. FAMILY HISTORY: Otherwise unknown. REVIEW OF SYSTEMS: Difficult to obtain secondary to patient's medical and mental condition. Since he has been here, no gross hematochezia or melena. No gross hematuria, no hematemesis, no hemoptysis. He denies polydipsia, polyuria. Complete 13-system review of system was obtained as best as I could. The patient being on continuous BiPAP and very short of breath. Pertinent positives and/or negatives as in body of the history above, otherwise noncontributory. PHYSICAL EXAMINATION: VITAL SIGNS: At presentation, he had low-grade fever of 100.4 degrees Fahrenheit, pulse was 110, respiratory rate of 16, blood pressure 146/85, O2 sats were 92%, presumably on room air at that time. GENERAL: He is a middle-aged obese male. Normocephalic, atraumatic on the continuous BiPAP therapy with mildly increased respiratory effort at rest. HEAD, EYES, EARS, NOSE AND THROAT: Anicteric. No conjunctival erythema. Oropharynx was covered with a BiPAP full face mask. He does have a large neck circumference. No gross jugular venous distention, no thyromegaly. Grossly, there were no palpable lymph nodes in the supraclavicular or submandibular lymph node chains. LUNGS: Auscultation of both lung bradshaw revealed scattered bibasilar predominant crackles, no wheezing. HEART: Sounds 1 and 2 are heard, regular rate and rhythm at the time of my evaluation without overt rubs or murmurs. ABDOMEN: Soft, full, protuberant. Bowel sounds are positive, nontender, no palpable hepatosplenomegaly. EXTREMITIES: Without overt digital clubbing or cyanosis, no pedal edema. Pedal pulses are 2+ bilaterally. NEUROLOGIC: Pupils are equal, round, about 4 mm, reactive to light. Extraocular muscle movements are intact. He moves all 4 extremities spontaneously. SKIN: Normal turgor in the areas examined without overt cellulitis or rash. Please see the wound care nurses' notes for full description of his skin. PSYCHIATRIC: Mood and affect somewhat anxious. He had intact judgment and insight. LABORATORY DATA: From my review as follows: Admission white cell count 5200, hemoglobin was 16.6, hematocrit 46.5, platelet count 177. No manual differential. D-dimer was up at 400.6. Serum sodium was 136, potassium 4.4, chloride 96, bicarbonate 26, BUN 15, creatinine 0.7, glucose was 229. Lactic acid level was 2.9, now within normal limits from the last test on 12/06/2020. Ferritin up at 1901. AST slightly up at 46, otherwise liver function tests essentially within normal limits. Troponin within normal limits. LDH was elevated at 395. Procalcitonin within normal limits essentially. CRP was up at 15.8. Coronavirus PCR was positive. Most recent lab work, arterial blood gas today showed a pH of 7.45, pCO2 of 41 and pO2 of 55, that was on the above-mentioned BiPAP settings on 100% FiO2. BUN is 24, creatinine of 0.7 today. Two sets of blood cultures are no growth to date. He was treated with Rocephin and Zithromax at presentation for community-acquired pneumonia. ASSESSMENT: 1. Acute hypoxemic respiratory failure, on continuous noninvasive ventilation. 2. Acute respiratory distress syndrome secondary to #3. 3. COVID-19 infection. 4. Bilateral pneumonia. 5. History of alcohol abuse. 6. Obesity. 7. Systemic inflammatory response syndrome at presentation. PLAN: I have adjusted the BiPAP settings. I have reduced the IPAP actually to 18, but increased the EPAP to 12 with O2 sats now in the 90s. Oxygen will be weaned to keep sats greater than or equal to about 90%. Aspiration precautions will be maintained. I will keep him on continuous noninvasive ventilation in the short term and hopefully he improves and does not need intubation. No acute indication for emergent intubation today. At this point, I will repeat the arterial blood gas in the morning. I have discussed with the attending physician and we will ensure he completes 5 days of community-acquired pneumonia therapy with Rocephin and Zithromax. Attempts will be made to wean him to bedtime only BiPAP. I will order a CIWA protocol for this gentleman with possible alcohol abuse and a chance of developing delirium tremens. For now oral nutrition will be the feeding modality of choice. He is appropriately on GI and DVT prophylaxis. I will, however, be ordering bilateral lower extremity Dopplers as part of the venous thromboembolic disorder workup. He is too unstable to get a CT angiogram of his chest at this time. The pneumonia certainly explains his degree of hypoxemia, but we need to keep that in mind. I do appreciate infectious disease input. He has received also Actemra. Flu and pneumonia vaccination will be addressed per protocol. We will watch him closely in the intermediate care unit. Thank you very much for the consult. Dr. Suarez will follow along and make further recommendations as picture progresses/becomes clearer. He is critically ill on life-sustaining interventions including continuous noninvasive ventilation and 100% oxygen, at very high risk of from cardiopulmonary system decompensation. Consideration will also be given for a 2D echocardiogram. He appears to have borderline cardiomegaly. We will follow him clinically for now. At this time, I spent about 35-40 minutes of critical care time without overlap and excluding any procedural time that may be necessary. TID: [id number] RECEIPT: [id number] [facility]
[2020-12-11] MEDS: INSULIN LISPRO 100 UNIT/ML SUB-Q SCH ×4 (07:30→22:27)
--- NOTE | 2020-12-11 08:58 | Progress Note ---
Assessment and Plan Assessment and plan: --COVID-19 infection Current Visit: Yes Status: Acute Continue steroids total 10 days Consider remdesivir per protocol for 5 days Home O2 evaluation, Prone positioning High inflammatory markers D-dimer 539 Ferritin 2970 LDH 662 CRP 15.8 Received Tocilizumab [Actemra] 100 mL 12/08/2020 CTA chest requested,[when patient is stable] pulmonary consulted -- Acute respiratory failure with severe hypoxia Current Visit: Yes Status: Acute Patient is on continuous BiPAP with 100% FiO2 Still hypoxemic with O2 sats of 89%, tachypnea with RR 40 to 49/min We will transfer the patient to [facility] for close observation and monitoring Intubate if needed, informed nurses assistant Dr. Ayers --Bilateral pneumonia Current Visit: Yes Status: Acute On empiric IV Rocephin and Zithromax for now DC antibiotics as procalcitonin is low -- SIRS (systemic inflammatory response syndrome) Current Visit: Yes Status: Acute Patient's clinical picture is consistent with systemic inflammatory response syndrome. D-dimer is 409, lactic acid is 2.99, ferritin is 199, LDH is 595 and CRP is 15.6. -- Hyponatremia/resolved Current Visit: Yes Status: Acute Closely monitor electrolytes --Hyperglycemia Current Visit: Yes Status: Acute Accu-Chek sliding scale coverage check hemoglobin A1c Probably secondary to steroids, HbA1c is less than 6 Closely monitor --DVT prophylaxis Current Visit: Yes Status: Acute On Lovenox subcu Closely monitor the patient and adjust management as needed Plan of care reviewed with the patient and his nurse I discussed in detail with pulmonary critical and requested consult Patient is critically ill with very poor prognosis Patient initially did not want me to discuss with any family members However later he gave contact number, will try to reach the family and update patient's condition Total critical care time more than 62 minutes The high probability of a clinically significant, sudden or life threatening deterioration of the [pulmonary, endocrine, and metabolic] system(s) required my full and direct attention, intervention and personal management. The aggregate critical care time was [62] minutes. This time is in addition to time spent performing reported procedures but includes the following: [x] Data Review and interpretation [x] Patient assessment and monitoring of vital signs [x] Documentation [x] Medication orders and management 12/07/2020; COVID-19 positive test With hypoxia on high flow oxygen, wean as tolerated Patient is placed on steroids, started remdesivir per protocol Inflammatory markers, prone positioning ID recommendations noted and appreciated 12/08/2020; Patient remains on high flow oxygen, elevated D-dimers Will check CTA chest tomorrow and consult pulmonary 12/09/2020; Remains on high flow oxygen, CTA chest to rule out PE Pulmonary consulted, informed 12/10/2020; patient is in acute respiratory distress and failure On continuous BiPAP, 100% oxygen, sats only 89% Severely tachypneic respiratory rate between 40 to 49/min We will transfer the patient to IMCU for close monitoring Intubate if needed, pulmonary critical notified Patient did not want me to call the next of kin in the chart, her sister, however when the patient's nurse asked for a contact number he gave his mother's telephone number to call #[phone] , when I called this number, someone picked up and said mahnaz and hung up the phone. I will try again to reach the family tomorrow. 12/11/2020; I called patient's mother Tierra Lozano at [phone] and discussed patient's critical condition treatment plan , she verbalized understanding, I answered all her questions and I encouraged her to call back if she has any new concerns History Interval history: I have seen and examined the patient at the bedside Patient's chart and medications reviewed Known new events reported by the nursing staff Patient is on continuous BiPAP Complains of shortness of breath and fatigue Hospitalist Physical - Constitutional Vitals: Temp Pulse Resp BP Pulse Ox 98.3 F 80 46 H 115/75 85 12/11/20 03:00 12/11/20 06:00 12/11/20 06:00 12/11/20 06:00 12/11/20 06:00 General appearance: Present: mild distress, well-nourished, other (On continues BiPAP, hypoxic, tachypneic) - EENT Eyes: Present: PERRL, EOM intact - Neck Neck: Present: supple, normal ROM - Respiratory Respiratory effort: normal Respiratory: bilateral: diminished, rhonchi, negative: rales, wheezing - Cardiovascular Rhythm: regular Heart Sounds: Present: S1 & S2 - Extremities Extremities: no ischemia, No edema - Abdominal General gastrointestinal: soft, non-tender, non-distended, normal bowel sounds - Integumentary Integumentary: Present: clear, warm - Psychiatric Psychiatric: appropriate mood/affect, cooperative - Neurologic Neurologic: moves all extremities HEART Score - HEART Score Troponin: Troponin T < 0.010 ng/mL (0.00-0.029) 12/06/20 10:03 Results - Labs CBC & Chem 7: 12/07/20 07:01 12/10/20 07:46 Labs: Laboratory Last Values WBC 7.9 K/mm3 (4.5-11.0) 12/07/20 07:01 RBC 4.68 M/mm3 (3.65-5.03) 12/07/20 07:01 Hgb 15.1 gm/dl (11.8-15.2) 12/07/20 07:01 Hct 43.7 % (35.5-45.6) 12/07/20 07:01 MCV 93 fl (84-94) 12/07/20 07:01 MCH 32 pg (28-32) 12/07/20 07:01 MCHC 35 % (32-34) H 12/07/20 07:01 RDW 13.1 % (13.2-15.2) L 12/07/20 07:01 Plt Count 209 K/mm3 (140-440) 12/07/20 07:01 Lymph % (Auto) 8.6 % (13.4-35.0) L 12/07/20 07:01 [place] % (Auto) 8.6 % (0.0-7.3) H 12/07/20 07:01 Eos % (Auto) 0.0 % (0.0-4.3) 12/07/20 07:01 Baso % (Auto) 0.1 % (0.0-1.8) 12/07/20 07:01 Lymph # (Auto) 0.7 K/mm3 (1.2-5.4) L 12/07/20 07:01 [place] # (Auto) 0.7 K/mm3 (0.0-0.8) 12/07/20 07:01 Eos # (Auto) 0.0 K/mm3 (0.0-0.4) 12/07/20 07:01 Baso # (Auto) 0.0 K/mm3 (0.0-0.1) 12/07/20 07:01 Seg Neutrophils % 82.7 % (40.0-70.0) H 12/07/20 07:01 Seg Neutrophils # 6.6 K/mm3 (1.8-7.7) 12/07/20 07:01 D-Dimer 539.70 ng/mlDDU (0-234) H 12/08/20 13:43 ABG pH 7.449 (7.320-7.450) 12/10/20 08:40 POC ABG pCO2 40.8 mmHg (32.0-48.0) 12/10/20 08:40 POC ABG pO2 55.3 mmHg (83-108) L 12/10/20 08:40 POC ABG HCO3 27.7 12/10/20 08:40 ABG O2 Saturation 88.3 (0-100) 12/10/20 08:40 POC ABG Base Excess 3.4 12/10/20 08:40 ABG Hemoglobin 16.1 (12.0-17.5) 12/10/20 08:40 ABG Oxyhemoglobin 87.3 (94-98) L 12/10/20 08:40 ABG Methemoglobin 0.3 (0.0-1.5) 12/10/20 08:40 ABG Sodium 143.0 mmol/L (136.0-145.0) 12/10/20 08:40 ABG Potassium 4.3 mmol/L (3.40-4.50) 12/10/20 08:40 ABG Chloride 105.0 mmol/L (98-107) 12/10/20 08:40 ABG Glucose 143 mg/dL (65-95) H 12/10/20 08:40 Carboxyhemoglobin 0.8 (0.5-1.5) 12/10/20 08:40 FiO2 % 100.0 12/10/20 08:40 Sodium 145 mmol/L (137-145) 12/10/20 07:46 Potassium 4.5 mmol/L (3.6-5.0) 12/10/20 07:46 Chloride 105.1 mmol/L (98-107) 12/10/20 07:46 Carbon Dioxide 28 mmol/L (22-30) 12/10/20 07:46 Anion Gap 16 mmol/L 12/10/20 07:46 BUN 24 mg/dL (9-20) H 12/10/20 07:46 Creatinine 0.7 mg/dL (0.8-1.3) L 12/10/20 07:46 Estimated GFR > 60 ml/min 12/10/20 07:46 BUN/Creatinine Ratio 34 % 12/10/20 07:46 Glucose 160 mg/dL (75-100) H 12/10/20 07:46 POC Glucose 101 mg/dL (70-105) 12/11/20 08:28 Hemoglobin A1c 5.8 % (4-6) 12/07/20 07:01 Lactic Acid 1.80 mmol/L (0.7-2.0) 12/06/20 19:12 Calcium 8.3 mg/dL (8.4-10.2) L 12/10/20 07:46 Ferritin 2970.0 ng/mL (30.0-300.0) H 12/08/20 13:43 Total Bilirubin 0.70 mg/dL (0.1-1.2) 12/10/20 07:46 AST 35 units/L (5-40) 12/10/20 07:46 ALT 64 units/L (7-56) H 12/10/20 07:46 Alkaline Phosphatase 80 units/L (35-129) 12/10/20 07:46 Lactate Dehydrogenase 662 units/L (91-180) H 12/08/20 13:43 Total Creatine Kinase 261 units/L (55-170) H 12/06/20 10:03 CK-MB (CK-2) 1.4 ng/mL (0.0-4.0) 12/06/20 10:03 CK-MB (CK-2) Rel Index 0.5 (0-4) 12/06/20 10:03 Troponin T < 0.010 ng/mL (0.00-0.029) 12/06/20 10:03 C-Reactive Protein 15.80 mg/dL (0.00-1.30) H 12/08/20 13:43 NT-Pro-B Natriuret Pep 5.79 pg/mL (0-450) 12/06/20 10:03 Total Protein 6.7 g/dL (6.3-8.2) 12/10/20 07:46 Albumin 3.0 g/dL (3.9-5) L 12/10/20 07:46 Albumin/Globulin Ratio 0.8 % 12/10/20 07:46 Procalcitonin 0.07 ng/mL (<0.15) 12/06/20 10:03 Arterial Blood Glucose 143 mg/dL (65-95) H 12/10/20 08:40 Arterial Blood Ionized Calcium 4.4 mg/dL (4.6-5.3) L 12/10/20 08:40 Coronavirus (PCR) Positive (Negative) A 12/06/20 Unknown Microbiology: Microbiology 12/06/20 10:03 Peripheral/Venous Blood Culture - Preliminary NO GROWTH AFTER 4 DAYS 12/06/20 10:03 Peripheral/Venous Blood Culture - Preliminary NO GROWTH AFTER 4 DAYS Santillan/IV: Voiding Method Urinal Active Medications - Current Medications Current Medications: Generic Name Dose Route Start Last Admin Trade Name Freq PRN Reason Stop Dose Admin Acetaminophen 650 mg 12/06/20 17:42 12/07/20 08:02 Acetaminophen 325 Mg Tab PO 650 mg Q4H PRN Administration Pain MILD(1-3)/Fever >100.5/BALDERRAMA Benzocaine/Menthol 1 each 12/07/20 17:20 12/07/20 19:19 Benzocaine/Menthol Lozenge MM 1 each Q2HR PRN Administration Sore Throat Dexamethasone 8 mg 12/07/20 10:00 12/10/20 09:53 Dexamethasone 4 Mg/Ml Vial IV 12/15/20 10:01 8 mg DAILY LORENZO Administration Enoxaparin Sodium 40 mg 12/06/20 18:00 12/10/20 09:53 Enoxaparin 40 Mg/0.4 Ml Inj SUB-Q 40 mg QDAY LORENZO Administration Famotidine 20 mg 12/06/20 22:00 12/10/20 22:09 Famotidine 20 Mg Tab PO 20 mg BID LORENZO Administration Guaifenesin 200 mg 12/06/20 17:00 12/10/20 07:16 Guaifenesin 100 Mg/5 Ml Oral Liqd PO 200 mg Q4H PRN Administration Cough Hydromorphone HCl 0.5 mg 12/06/20 17:44 12/09/20 08:07 Hydromorphone 1 Mg/1 Ml Inj IV 0.5 mg Q3H PRN Administration Pain , Severe (7-10) REMDESIVIR 100 mg/ Sodium 250 mls @ 500 mls/hr 12/08/20 21:00 12/10/20 22:10 Chloride IV 12/11/20 21:29 500 mls/hr Q24HR@2100 LORENZO Administration Insulin Human Lispro 0 unit 12/07/20 07:30 12/10/20 22:09 Insulin Lispro 100 Unit/Ml SUB-Q 3 unit ACHS LORENZO Administration Protocol Lorazepam 2 mg 12/10/20 13:22 12/10/20 13:48 Lorazepam 2 Mg/Ml Vial IV 2 mg Q1H PRN Administration CIWA-Ar 8-15 Lorazepam 4 mg 12/10/20 13:22 Lorazepam 2 Mg/Ml Vial IV Q1H PRN CIWA-Ar 16-25 Lorazepam 4 mg 12/10/20 13:22 Lorazepam 2 Mg/Ml Vial IV Q15MIN PRN CIWA-Ar >25 Metoclopramide HCl 10 mg 12/06/20 17:44 Metoclopramide 10 Mg/2 Ml Inj IV Q6H PRN Nausea And Vomiting Ondansetron HCl 4 mg 12/06/20 17:42 12/10/20 13:54 Ondansetron 4 Mg/2 Ml Inj IV 4 mg Q8H PRN Administration Nausea And Vomiting Oxycodone/Acetaminophen 1 tab 12/06/20 17:44 12/10/20 07:15 Oxycodone /Acetaminophen 5-325mg Tab PO 1 tab Q6H PRN Administration Pain, Moderate (4-6) Sodium Chloride 10 ml 12/06/20 22:00 12/10/20 22:10 Sodium Chloride 0.9% 10 Ml Flush Syringe IV 10 ml BID LORENZO Administration Sodium Chloride 10 ml 12/06/20 17:42 Sodium Chloride 0.9% 10 Ml Flush Syringe IV PRN PRN LINE FLUSH Sodium Chloride 50 ml 12/07/20 21:00 12/10/20 22:10 Sodium Chloride 0.9% 50 Ml Ivpb IV 12/11/20 21:01 50 ml Q24HR@2100 LORENZO Administration
[2020-12-11] MEDS: dexAMETHasone 4 MG/ML VIAL IV SCH (10:04)
[2020-12-11] MEDS: ENOXAPARIN 40 MG/0.4 ML INJ SUB-Q SCH (10:05)
--- NOTE | 2020-12-11 10:12 | Event Note ---
Date: 12/11/20 I called patient's mother Tierra Lozano at [phone] and discussed patient's critical condition treatment plan , she verbalized understanding I encouraged her to call back if she has any new questions or concerns
[2020-12-11 11:06] LABS: C-Reactive Protein 1.8 mg/dL (0.00-1.30)
[2020-12-11] MEDS: LORazepam 2 MG/ML VIAL IV PRN ×4 (11:56→18:13)
[2020-12-11] MEDS ORDERED: ENOXAPARIN 100 MG/1 ML INJ SUB-Q SCH (12:00)
[2020-12-11] MEDS ORDERED: ENOXAPARIN 60 MG/0.6 ML INJ SUB-Q ONE (12:21)
[2020-12-11] MEDS ORDERED: ENOXAPARIN 60 MG/0.6 ML INJ SUB-Q NR (13:00)
--- NOTE | 2020-12-11 15:42 | Event Note ---
Date: 12/11/20 Precedex started for worsening delirium
--- NOTE | 2020-12-11 16:49 | Progress Note ---
Assessment and Plan 40-year-old male with no significant past medical history comes in for increasing shortness of breath over the last 3 days. Patient was diagnosed with Covid approximately 7 days ago. Patient has cough paroxysms with no sputum for the past 4 days and subjective fever off and on for the past 4 days. Patient also complains of chest pain and abdominal pain whenever he coughs. Patient denies nausea vomiting or diarrhea. Patient was hypoxic found to be hypoxic at 92% on room air indicating mid to 86% on ambulation. Patient is not on oxygen at home. Patient is not vaccinated. Exposed to Covid pneumonia in the community. No loss of taste or smell. Patient presently sedated. Not responding to the verbal stimuli. Patient resting on BIPAP 18/12, rate 25,FIO2 100% and O2 saturation running 99%. Patient running low grade temp. No leukocytosis. Blood pressure 99/63. Pulse 101. Chest xray done 12/06/20 reported Severe patchy bilateral pulmonary opacities suggesting multifocal viral pneumonia. Patients inflammatory markers: Serum ferritin 1539. D Dimer greater than 10,000 LDH 669 CRP 1.8. Patient presently on Dexamethasone, Therapeutic dose S/C Lovenox., Famotidine. Patient finished course of REMDESIVIR. I spent critical care time of 42 minutes on this patient by reviewing the chart, examine the patient, Review chest xray and lab results, talking to the nursing staff and respiratory therapy and work out plan of treatment in this critically COVID 19 patient with COVID Pneumonia and acute hypoxic respiratory failure. - Patient Problems (1) Acute respiratory failure with hypoxia Current Visit: Yes Status: Acute Plan to address problem: BIPAP 18/12, Rate 25, FIO2 199%. Continue dexamethasone. Continue S/C Lovenox. Continue famotidine. (2) Coronavirus infection Current Visit: Yes Status: Acute Plan to address problem: Management as per infectious diseases. Patient is on Dexamethasone and S/C Lovenox. Finished course of REMDESIVIR. (3) Pneumonia due to COVID-19 virus Current Visit: Yes Status: Acute Plan to address problem: Antibiotics as per infectious diseases. (4) SIRS (systemic inflammatory response syndrome) Current Visit: Yes Status: Acute Plan to address problem: Patient is on Dexamethasone. Subjective Date of service: 12/11/20 Principal diagnosis: COVID Interval history: 40-year-old male with no significant past medical history comes in for increasing shortness of breath over the last 3 days. Patient was diagnosed with Covid approximately 7 days ago. Patient has cough paroxysms with no sputum for the past 4 days and subjective fever off and on for the past 4 days. Patient also complains of chest pain and abdominal pain whenever he coughs. Patient denies nausea vomiting or diarrhea. Patient was hypoxic found to be hypoxic at 92% on room air indicating mid to 86% on ambulation. Patient is not on oxygen at home. Patient is not vaccinated. Exposed to Covid pneumonia in the community. No loss of taste or smell. Patient presently sedated. Not responding to the verbal stimuli. Patient resting on BIPAP 18/12, rate 25,FIO2 100% and O2 saturation running 99%. Patient running low grade temp. No leukocytosis. Blood pressure 99/63. Pulse 101. Chest xray done 12/06/20 reported Severe patchy bilateral pulmonary opacities suggesting multifocal viral pneumonia. Patients inflammatory markers: Serum ferritin 1539. D Dimer greater than 10,000 LDH 669 CRP 1.8. Patient presently on Dexamethasone, Therapeutic dose S/C Lovenox., Famotidine. Patient finished course of REMDESIVIR. Objective Vital Signs - 12hr 12/11/20 12/11/20 12/11/20 05:00 05:30 06:00 Temperature Pulse Rate 73 86 80 Respiratory 32 H 21 46 H Rate Blood Pressure 122/75 110/70 115/75 O2 Sat by Pulse 89 85 85 Oximetry 12/11/20 12/11/20 12/11/20 08:00 09:00 12:00 Temperature 97.4 F L 97.0 F L Pulse Rate 81 79 Respiratory 33 H 356 H Rate Blood Pressure O2 Sat by Pulse 95 92 Oximetry 12/11/20 15:22 Temperature Pulse Rate Respiratory Rate Blood Pressure O2 Sat by Pulse 94 Oximetry Constitutional: asleep, appears uncomfortable, other (On BIPAP with FIO2 100%.) Eyes: non-icteric ENT: oropharynx erythematous Neck: supple, no lymphadenopathy Effort: mildly labored Ascultation: Bilateral: rales, rhonchi Cardiovascular: regular rate and rhythm Gastrointestinal: normoactive bowel sounds, soft, non-tender Integumentary: normal Extremities: no cyanosis, no edema Neurologic: unable to assess Psychiatric: other (Unable to assess due to mental status.) CBC and BMP: 12/07/20 07:01 12/10/20 07:46 ABG, PT/INR, D-dimer: ABG ABG pH 7.449 (7.320-7.450) 12/10/20 08:40 POC ABG pCO2 40.8 mmHg (32.0-48.0) 12/10/20 08:40 POC ABG pO2 55.3 mmHg (83-108) L 12/10/20 08:40 POC ABG HCO3 27.7 12/10/20 08:40 ABG O2 Saturation 88.3 (0-100) 12/10/20 08:40 PT/INR, D-dimer D-Dimer > 48610 ng/mlDDU (0-234) H 12/11/20 10:33 Abnormal lab findings: Abnormal Labs 12/06/20 12/06/20 12/06/20 10:03 10:03 10:03 RBC 5.06 H Hgb 16.6 H Hct 46.5 H MCH 33 H MCHC 36 H RDW 13.0 L Lymph % (Auto) 12.3 L [place] % (Auto) Lymph # (Auto) 0.6 L Seg Neutrophils % 80.5 H D-Dimer POC ABG pO2 ABG Oxyhemoglobin ABG Glucose Sodium 136 L Chloride 96.3 L Carbon Dioxide BUN Creatinine 0.7 L Glucose 229 H POC Glucose Lactic Acid 2.90 H* Calcium Ferritin AST 46 H ALT Lactate Dehydrogenase Total Creatine Kinase 261 H C-Reactive Protein Albumin 3.7 L Arterial Blood Glucose Arterial Blood Ionized Calcium Coronavirus (PCR) 12/06/20 12/06/20 12/06/20 10:03 10:03 10:03 RBC Hgb Hct MCH MCHC RDW Lymph % (Auto) [place] % (Auto) Lymph # (Auto) Seg Neutrophils % D-Dimer 400.56 H POC ABG pO2 ABG Oxyhemoglobin ABG Glucose Sodium Chloride Carbon Dioxide BUN Creatinine Glucose 229 H POC Glucose Lactic Acid Calcium Ferritin 1901.0 H AST ALT Lactate Dehydrogenase 395 H Total Creatine Kinase C-Reactive Protein 15.80 H Albumin Arterial Blood Glucose Arterial Blood Ionized Calcium Coronavirus (PCR) 12/06/20 12/07/20 12/07/20 Unknown 07:01 07:01 RBC Hgb Hct MCH MCHC 35 H RDW 13.1 L Lymph % (Auto) 8.6 L [place] % (Auto) 8.6 H Lymph # (Auto) 0.7 L Seg Neutrophils % 82.7 H D-Dimer POC ABG pO2 ABG Oxyhemoglobin ABG Glucose Sodium Chloride Carbon Dioxide BUN Creatinine 0.5 L Glucose 147 H POC Glucose Lactic Acid Calcium 8.3 L Ferritin AST ALT Lactate Dehydrogenase Total Creatine Kinase C-Reactive Protein Albumin 3.4 L Arterial Blood Glucose Arterial Blood Ionized Calcium Coronavirus (PCR) Positive A 12/07/20 12/07/20 12/07/20 07:27 12:23 16:00 RBC Hgb Hct MCH MCHC RDW Lymph % (Auto) [place] % (Auto) Lymph # (Auto) Seg Neutrophils % D-Dimer POC ABG pO2 ABG Oxyhemoglobin ABG Glucose Sodium Chloride Carbon Dioxide BUN Creatinine Glucose POC Glucose 140 H 144 H 222 H Lactic Acid Calcium Ferritin AST ALT Lactate Dehydrogenase Total Creatine Kinase C-Reactive Protein Albumin Arterial Blood Glucose Arterial Blood Ionized Calcium Coronavirus (PCR) 12/07/20 12/07/20 12/08/20 19:12 21:50 07:26 RBC Hgb Hct MCH MCHC RDW Lymph % (Auto) [place] % (Auto) Lymph # (Auto) Seg Neutrophils % D-Dimer POC ABG pO2 ABG Oxyhemoglobin ABG Glucose Sodium Chloride Carbon Dioxide 32 H BUN Creatinine 0.6 L 0.5 L Glucose 262 H 136 H POC Glucose 214 H Lactic Acid Calcium 8.2 L Ferritin AST 69 H 56 H ALT 64 H 61 H Lactate Dehydrogenase Total Creatine Kinase C-Reactive Protein Albumin 3.0 L 3.1 L Arterial Blood Glucose Arterial Blood Ionized Calcium Coronavirus (PCR) 12/08/20 12/08/20 12/08/20 07:58 12:06 13:43 RBC Hgb Hct MCH MCHC RDW Lymph % (Auto) [place] % (Auto) Lymph # (Auto) Seg Neutrophils % D-Dimer 539.70 H POC ABG pO2 ABG Oxyhemoglobin ABG Glucose Sodium Chloride Carbon Dioxide BUN Creatinine Glucose POC Glucose 136 H 139 H Lactic Acid Calcium Ferritin AST ALT Lactate Dehydrogenase Total Creatine Kinase C-Reactive Protein Albumin Arterial Blood Glucose Arterial Blood Ionized Calcium Coronavirus (PCR) 12/08/20 12/08/20 12/08/20 13:43 13:43 16:22 RBC Hgb Hct MCH MCHC RDW Lymph % (Auto) [place] % (Auto) Lymph # (Auto) Seg Neutrophils % D-Dimer POC ABG pO2 ABG Oxyhemoglobin ABG Glucose Sodium Chloride Carbon Dioxide BUN Creatinine Glucose POC Glucose 223 H Lactic Acid Calcium Ferritin 2970.0 H AST ALT Lactate Dehydrogenase 662 H Total Creatine Kinase C-Reactive Protein 15.80 H Albumin Arterial Blood Glucose Arterial Blood Ionized Calcium Coronavirus (PCR) 12/08/20 12/09/20 12/09/20 21:17 08:00 09:12 RBC Hgb Hct MCH MCHC RDW Lymph % (Auto) [place] % (Auto) Lymph # (Auto) Seg Neutrophils % D-Dimer POC ABG pO2 ABG Oxyhemoglobin ABG Glucose Sodium Chloride Carbon Dioxide BUN 23 H Creatinine 0.6 L Glucose 167 H POC Glucose 152 H 152 H Lactic Acid Calcium Ferritin AST 48 H ALT 81 H Lactate Dehydrogenase Total Creatine Kinase C-Reactive Protein Albumin 3.2 L Arterial Blood Glucose Arterial Blood Ionized Calcium Coronavirus (PCR) 12/09/20 12/09/20 12/09/20 11:54 16:17 21:00 RBC Hgb Hct MCH MCHC RDW Lymph % (Auto) [place] % (Auto) Lymph # (Auto) Seg Neutrophils % D-Dimer POC ABG pO2 ABG Oxyhemoglobin ABG Glucose Sodium Chloride Carbon Dioxide BUN Creatinine Glucose POC Glucose 203 H 232 H 155 H Lactic Acid Calcium Ferritin AST ALT Lactate Dehydrogenase Total Creatine Kinase C-Reactive Protein Albumin Arterial Blood Glucose Arterial Blood Ionized Calcium Coronavirus (PCR) 12/10/20 12/10/20 12/10/20 07:46 08:22 08:40 RBC Hgb Hct MCH MCHC RDW Lymph % (Auto) [place] % (Auto) Lymph # (Auto) Seg Neutrophils % D-Dimer POC ABG pO2 55.3 L ABG Oxyhemoglobin 87.3 L ABG Glucose 143 H Sodium Chloride Carbon Dioxide BUN 24 H Creatinine 0.7 L Glucose 160 H POC Glucose 135 H Lactic Acid Calcium 8.3 L Ferritin AST ALT 64 H Lactate Dehydrogenase Total Creatine Kinase C-Reactive Protein Albumin 3.0 L Arterial Blood Glucose 143 H Arterial Blood Ionized Calcium 4.4 L Coronavirus (PCR) 12/10/20 12/10/20 12/10/20 11:47 15:38 21:58 RBC Hgb Hct MCH MCHC RDW Lymph % (Auto) [place] % (Auto) Lymph # (Auto) Seg Neutrophils % D-Dimer POC ABG pO2 ABG Oxyhemoglobin ABG Glucose Sodium Chloride Carbon Dioxide BUN Creatinine Glucose POC Glucose 121 H 178 H 151 H Lactic Acid Calcium Ferritin AST ALT Lactate Dehydrogenase Total Creatine Kinase C-Reactive Protein Albumin Arterial Blood Glucose Arterial Blood Ionized Calcium Coronavirus (PCR) 12/11/20 12/11/20 12/11/20 10:33 10:33 10:33 RBC Hgb Hct MCH MCHC RDW Lymph % (Auto) [place] % (Auto) Lymph # (Auto) Seg Neutrophils % D-Dimer > 22816 H POC ABG pO2 ABG Oxyhemoglobin ABG Glucose Sodium Chloride Carbon Dioxide BUN Creatinine Glucose POC Glucose Lactic Acid Calcium Ferritin 1539.0 H AST ALT Lactate Dehydrogenase 669 H Total Creatine Kinase C-Reactive Protein 1.80 H Albumin Arterial Blood Glucose Arterial Blood Ionized Calcium Coronavirus (PCR) 12/11/20 11:46 RBC Hgb Hct MCH MCHC RDW Lymph % (Auto) [place] % (Auto) Lymph # (Auto) Seg Neutrophils % D-Dimer POC ABG pO2 ABG Oxyhemoglobin ABG Glucose Sodium Chloride Carbon Dioxide BUN Creatinine Glucose POC Glucose 140 H Lactic Acid Calcium Ferritin AST ALT Lactate Dehydrogenase Total Creatine Kinase C-Reactive Protein Albumin Arterial Blood Glucose Arterial Blood Ionized Calcium Coronavirus (PCR) Chest x-ray: report reviewed, image reviewed Additional Studies: CHEST 2 VIEWS 12/06/20 INDICATION / CLINICAL INFORMATION: Hypoxia, Covid positive. Chest pain. COMPARISON: None available. FINDINGS: SUPPORT DEVICES: None. HEART / MEDIASTINUM: No significant abnormality. LUNGS / PLEURA: Severe patchy bilateral opacities. ADDITIONAL FINDINGS: No significant additional findings. IMPRESSION: 1. Severe patchy bilateral pulmonary opacities suggesting multifocal viral pneumonia.
--- NOTE | 2020-12-11 19:18 | Progress Note ---
Assessment and Plan Assessment and plan: --COVID-19 infection Current Visit: Yes Status: Acute Continue steroids total 10 days Completed remdesivir per protocol for 5 days Severely hypoxemic on continuous BiPAP/100% FiO2 Home O2 evaluation, Prone positioning High inflammatory markers D-dimer 539- >10,000 on empiric full dose anticoagulation with Lovenox Follow inflammatory markers Received Tocilizumab [Actemra] 100 mL 12/08/2020 CTA chest requested,[when patient is stable] pulmonary consulted Very poor prognosis --Elevated d dimer, severe hypoxemia, severe COVID-19 infection; Will empirically treat with full dose anticoagulation Lovenox 1 mg/kg body weight every 12 hours 1 dose now[I checked with the pharmacy] Check CTA chest if patient is stable to go out of the room Lower extremity venous Doppler to rule out DVT --Acute metabolic encephalopathy/delirium Current Visit: Yes Status: Acute Continue Precedex for worsening delirium Treat the underlying cause And supportive care --Acute respiratory failure with severe hypoxia Current Visit: Yes Status: Acute Patient is on continuous BiPAP with 100% FiO2 Still hypoxemic with O2 sats of 89%, tachypnea with RR 40 to 49/min We will transfer the patient to [facility] for close observation and monitoring Intubate if needed, 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 Ayers --Bilateral pneumonia Current Visit: Yes Status: Acute On empiric IV Rocephin and Zithromax for now DC antibiotics as procalcitonin is low -- SIRS (systemic inflammatory response syndrome) Current Visit: Yes Status: Acute Patient's clinical picture is consistent with systemic inflammatory response syndrome. D-dimer is 409, lactic acid is 2.99, ferritin is 199, LDH is 595 and CRP is 15.6. -- Hyponatremia/resolved Current Visit: Yes Status: Acute Closely monitor electrolytes --Hyperglycemia Current Visit: Yes Status: Acute Accu-Chek sliding scale coverage check hemoglobin A1c Probably secondary to steroids, HbA1c is less than 6 Closely monitor --DVT prophylaxis Current Visit: Yes Status: Acute On Lovenox subcu Closely monitor the patient and adjust management as needed Plan of care reviewed with the patient and his nurse I discussed in detail with pulmonary critical and requested consult Patient is critically ill with very poor prognosis Patient initially did not want me to discuss with any family members However later he gave contact number, will try to reach the family and update patient's condition Total critical care time more than 60 minutes The high probability of a clinically significant, sudden or life threatening deterioration of the [pulmonary, endocrine, and metabolic] system(s) required my full and direct attention, intervention and personal management. The aggregate critical care time was [60] minutes. This time is in addition to time spent performing reported procedures but includes the following: [x] Data Review and interpretation [x] Patient assessment and monitoring of vital signs [x] Documentation [x] Medication orders and management 12/07/2020; COVID-19 positive test With hypoxia on high flow oxygen, wean as tolerated Patient is placed on steroids, started remdesivir per protocol Inflammatory markers, prone positioning ID recommendations noted and appreciated 12/08/2020; Patient remains on high flow oxygen, elevated D-dimers Will check CTA chest tomorrow and consult pulmonary 12/09/2020; Remains on high flow oxygen, CTA chest to rule out PE Pulmonary consulted, informed 12/10/2020; patient is in acute respiratory distress and failure On continuous BiPAP, 100% oxygen, sats only 89% Severely tachypneic respiratory rate between 40 to 49/min We will transfer the patient to [facility] for close monitoring Intubate if needed, pulmonary critical notified Patient did not want me to call the next of kin in the chart, her sister, however when the patient's nurse asked for a contact number he gave his mother's telephone number to call #[phone] , when I called this number, someone picked up and said mahnaz and hung up the phone. I will try again to reach the family tomorrow. 12/11/2020; I called patient's mother Tierra Lozano at [phone] and discussed patient's critical condition treatment plan , she verbalized understanding, I answered all her questions and I encouraged her to call back if she has any new concerns 12/12/2020; Patient remains critically ill on continuous BiPAP/100% oxygen On Precedex, On empiric full dose anticoagulation due to very high inflammatory markers On IV steroids, completed remdesivir, received Actemra Patient is critically ill very poor prognosis, I spoke to patient's mother Tierra, yesterday History Interval history: I have seen and examined the patient at the bedside Patient's chart and medications reviewed Patient is lethargic and confused Pulmonary critical started Precedex Continues to require continuous BiPAP/100% oxygen Vital signs noted Hospitalist Physical - Constitutional Vitals: Temp Pulse Resp BP Pulse Ox 97.0 F L 90 30 H 101/70 94 12/11/20 16:00 12/11/20 19:11 12/11/20 19:11 12/11/20 19:11 12/11/20 19:13 General appearance: Present: mild distress, well-nourished, other (On continues BiPAP, hypoxic, tachypneic) - EENT Eyes: Present: PERRL, EOM intact - Neck Neck: Present: supple, normal ROM - Respiratory Respiratory effort: normal Respiratory: bilateral: diminished, rhonchi, negative: rales, wheezing - Cardiovascular Rhythm: regular Heart Sounds: Present: S1 & S2 - Extremities Extremities: no ischemia, No edema - Abdominal General gastrointestinal: soft, non-tender, non-distended, normal bowel sounds - Integumentary Integumentary: Present: clear, warm - Psychiatric Psychiatric: other (On BiPAP, confused) - Neurologic Neurologic: moves all extremities HEART Score - HEART Score Troponin: Troponin T < 0.010 ng/mL (0.00-0.029) 12/06/20 10:03 Results - Labs CBC & Chem 7: 12/07/20 07:01 12/10/20 07:46 Labs: Laboratory Last Values WBC 7.9 K/mm3 (4.5-11.0) 12/07/20 07:01 RBC 4.68 M/mm3 (3.65-5.03) 12/07/20 07:01 Hgb 15.1 gm/dl (11.8-15.2) 12/07/20 07:01 Hct 43.7 % (35.5-45.6) 12/07/20 07:01 MCV 93 fl (84-94) 12/07/20 07:01 MCH 32 pg (28-32) 12/07/20 07:01 MCHC 35 % (32-34) H 12/07/20 07:01 RDW 13.1 % (13.2-15.2) L 12/07/20 07:01 Plt Count 209 K/mm3 (140-440) 12/07/20 07:01 Lymph % (Auto) 8.6 % (13.4-35.0) L 12/07/20 07:01 [place] % (Auto) 8.6 % (0.0-7.3) H 12/07/20 07:01 Eos % (Auto) 0.0 % (0.0-4.3) 12/07/20 07:01 Baso % (Auto) 0.1 % (0.0-1.8) 12/07/20 07:01 Lymph # (Auto) 0.7 K/mm3 (1.2-5.4) L 12/07/20 07:01 [place] # (Auto) 0.7 K/mm3 (0.0-0.8) 12/07/20 07:01 Eos # (Auto) 0.0 K/mm3 (0.0-0.4) 12/07/20 07:01 Baso # (Auto) 0.0 K/mm3 (0.0-0.1) 12/07/20 07:01 Seg Neutrophils % 82.7 % (40.0-70.0) H 12/07/20 07:01 Seg Neutrophils # 6.6 K/mm3 (1.8-7.7) 12/07/20 07:01 D-Dimer > 95667 ng/mlDDU (0-234) H 12/11/20 10:33 ABG pH 7.449 (7.320-7.450) 12/10/20 08:40 POC ABG pCO2 40.8 mmHg (32.0-48.0) 12/10/20 08:40 POC ABG pO2 55.3 mmHg (83-108) L 12/10/20 08:40 POC ABG HCO3 27.7 12/10/20 08:40 ABG O2 Saturation 88.3 (0-100) 12/10/20 08:40 POC ABG Base Excess 3.4 12/10/20 08:40 ABG Hemoglobin 16.1 (12.0-17.5) 12/10/20 08:40 ABG Oxyhemoglobin 87.3 (94-98) L 12/10/20 08:40 ABG Methemoglobin 0.3 (0.0-1.5) 12/10/20 08:40 ABG Sodium 143.0 mmol/L (136.0-145.0) 12/10/20 08:40 ABG Potassium 4.3 mmol/L (3.40-4.50) 12/10/20 08:40 ABG Chloride 105.0 mmol/L (98-107) 12/10/20 08:40 ABG Glucose 143 mg/dL (65-95) H 12/10/20 08:40 Carboxyhemoglobin 0.8 (0.5-1.5) 12/10/20 08:40 FiO2 % 100.0 12/10/20 08:40 Sodium 145 mmol/L (137-145) 12/10/20 07:46 Potassium 4.5 mmol/L (3.6-5.0) 12/10/20 07:46 Chloride 105.1 mmol/L (98-107) 12/10/20 07:46 Carbon Dioxide 28 mmol/L (22-30) 12/10/20 07:46 Anion Gap 16 mmol/L 12/10/20 07:46 BUN 24 mg/dL (9-20) H 12/10/20 07:46 Creatinine 0.7 mg/dL (0.8-1.3) L 12/10/20 07:46 Estimated GFR > 60 ml/min 12/10/20 07:46 BUN/Creatinine Ratio 34 % 12/10/20 07:46 Glucose 160 mg/dL (75-100) H 12/10/20 07:46 POC Glucose 140 mg/dL (70-105) H 12/11/20 11:46 Hemoglobin A1c 5.8 % (4-6) 12/07/20 07:01 Lactic Acid 1.80 mmol/L (0.7-2.0) 12/06/20 19:12 Calcium 8.3 mg/dL (8.4-10.2) L 12/10/20 07:46 Ferritin 1539.0 ng/mL (30.0-300.0) H 12/11/20 10:33 Total Bilirubin 0.70 mg/dL (0.1-1.2) 12/10/20 07:46 AST 35 units/L (5-40) 12/10/20 07:46 ALT 64 units/L (7-56) H 12/10/20 07:46 Alkaline Phosphatase 80 units/L (35-129) 12/10/20 07:46 Lactate Dehydrogenase 669 units/L (91-180) H 12/11/20 10:33 Total Creatine Kinase 261 units/L (55-170) H 12/06/20 10:03 CK-MB (CK-2) 1.4 ng/mL (0.0-4.0) 12/06/20 10:03 CK-MB (CK-2) Rel Index 0.5 (0-4) 12/06/20 10:03 Troponin T < 0.010 ng/mL (0.00-0.029) 12/06/20 10:03 C-Reactive Protein 1.80 mg/dL (0.00-1.30) H 12/11/20 10:33 NT-Pro-B Natriuret Pep 5.79 pg/mL (0-450) 12/06/20 10:03 Total Protein 6.7 g/dL (6.3-8.2) 12/10/20 07:46 Albumin 3.0 g/dL (3.9-5) L 12/10/20 07:46 Albumin/Globulin Ratio 0.8 % 12/10/20 07:46 Procalcitonin 0.07 ng/mL (<0.15) 12/06/20 10:03 Arterial Blood Glucose 143 mg/dL (65-95) H 12/10/20 08:40 Arterial Blood Ionized Calcium 4.4 mg/dL (4.6-5.3) L 12/10/20 08:40 Coronavirus (PCR) Positive (Negative) A 12/06/20 Unknown Microbiology: Microbiology 12/06/20 10:03 Peripheral/Venous Blood Culture - Final NO GROWTH AFTER 5 DAYS 12/06/20 10:03 Peripheral/Venous Blood Culture - Final NO GROWTH AFTER 5 DAYS Santillan/IV: Voiding Method Urinal Active Medications - Current Medications Current Medications: Generic Name Dose Route Start Last Admin Trade Name Freq PRN Reason Stop Dose Admin Acetaminophen 650 mg 12/06/20 17:42 12/07/20 08:02 Acetaminophen 325 Mg Tab PO 650 mg Q4H PRN Administration Pain MILD(1-3)/Fever >100.5/BALDERRAMA Benzocaine/Menthol 1 each 12/07/20 17:20 12/07/20 19:19 Benzocaine/Menthol Lozenge MM 1 each Q2HR PRN Administration Sore Throat Dexamethasone 8 mg 12/07/20 10:00 12/11/20 10:04 Dexamethasone 4 Mg/Ml Vial IV 12/15/20 10:01 8 mg DAILY LORENZO Administration Enoxaparin Sodium 90 mg 12/12/20 00:00 Enoxaparin 100 Mg/1 Ml Inj 1 mg/kg (90 mg) SUB-Q 0000,1200 [facility] Protocol Famotidine 20 mg 12/06/20 22:00 12/10/20 22:09 Famotidine 20 Mg Tab PO 20 mg BID LORENZO Administration Guaifenesin 200 mg 12/06/20 17:00 12/10/20 07:16 Guaifenesin 100 Mg/5 Ml Oral Liqd PO 200 mg Q4H PRN Administration Cough Hydromorphone HCl 0.5 mg 12/06/20 17:44 12/09/20 08:07 Hydromorphone 1 Mg/1 Ml Inj IV 0.5 mg Q3H PRN Administration Pain , Severe (7-10) REMDESIVIR 100 mg/ Sodium 250 mls @ 500 mls/hr 12/08/20 21:00 12/10/20 22:10 Chloride IV 12/11/20 21:29 500 mls/hr Q24HR@2100 [facility] Administration Dexmedetomidine HCl 400 mcg/ 104 mls @ 4.732 mls/hr 12/11/20 15:00 12/11/20 17:57 Sodium Chloride IV 0.2 mcg/kg/hr TITRATE LORENZO 4.732 mls/hr Administration Protocol 0.2 MCG/KG/HR Insulin Human Lispro 0 unit 12/07/20 07:30 12/11/20 11:30 Insulin Lispro 100 Unit/Ml SUB-Q Not Given ACHS [facility] Protocol Lorazepam 2 mg 12/10/20 13:22 12/11/20 11:56 Lorazepam 2 Mg/Ml Vial IV 2 mg Q1H PRN Administration CIWA-Ar 8-15 Lorazepam 4 mg 12/10/20 13:22 12/11/20 18:13 Lorazepam 2 Mg/Ml Vial IV 4 mg Q1H PRN Administration CIWA-Ar 16-25 Lorazepam 4 mg 12/10/20 13:22 Lorazepam 2 Mg/Ml Vial IV Q15MIN PRN CIWA-Ar >25 Metoclopramide HCl 10 mg 12/06/20 17:44 Metoclopramide 10 Mg/2 Ml Inj IV Q6H PRN Nausea And Vomiting Ondansetron HCl 4 mg 12/06/20 17:42 12/10/20 13:54 Ondansetron 4 Mg/2 Ml Inj IV 4 mg Q8H PRN Administration Nausea And Vomiting Oxycodone/Acetaminophen 1 tab 12/06/20 17:44 12/10/20 07:15 Oxycodone /Acetaminophen 5-325mg Tab PO 1 tab Q6H PRN Administration Pain, Moderate (4-6) Sodium Chloride 10 ml 12/06/20 22:00 12/11/20 10:00 Sodium Chloride 0.9% 10 Ml Flush Syringe IV 10 ml BID LORENZO Administration Sodium Chloride 10 ml 12/06/20 17:42 Sodium Chloride 0.9% 10 Ml Flush Syringe IV PRN PRN LINE FLUSH Sodium Chloride 50 ml 12/07/20 21:00 12/10/20 22:10 Sodium Chloride 0.9% 50 Ml Ivpb IV 12/11/20 21:01 50 ml Q24HR@2100 LORENZO Administration
--- NOTE | 2020-12-11 19:51 | Progress Note ---
Hospitalist Physical - Constitutional Vitals: Temp Pulse Resp BP Pulse Ox 97.0 F L 90 30 H 101/70 94 12/11/20 16:00 12/11/20 19:11 12/11/20 19:11 12/11/20 19:11 12/11/20 19:13 General appearance: Present: mild distress, well-nourished, other (On continues BiPAP, hypoxic, tachypneic) HEART Score - HEART Score Troponin: Troponin T < 0.010 ng/mL (0.00-0.029) 12/06/20 10:03 Results - Labs CBC & Chem 7: 12/07/20 07:01 12/10/20 07:46 Labs: Laboratory Last Values WBC 7.9 K/mm3 (4.5-11.0) 12/07/20 07:01 RBC 4.68 M/mm3 (3.65-5.03) 12/07/20 07:01 Hgb 15.1 gm/dl (11.8-15.2) 12/07/20 07:01 Hct 43.7 % (35.5-45.6) 12/07/20 07:01 MCV 93 fl (84-94) 12/07/20 07:01 MCH 32 pg (28-32) 12/07/20 07:01 MCHC 35 % (32-34) H 12/07/20 07:01 RDW 13.1 % (13.2-15.2) L 12/07/20 07:01 Plt Count 209 K/mm3 (140-440) 12/07/20 07:01 Lymph % (Auto) 8.6 % (13.4-35.0) L 12/07/20 07:01 [place] % (Auto) 8.6 % (0.0-7.3) H 12/07/20 07:01 Eos % (Auto) 0.0 % (0.0-4.3) 12/07/20 07:01 Baso % (Auto) 0.1 % (0.0-1.8) 12/07/20 07:01 Lymph # (Auto) 0.7 K/mm3 (1.2-5.4) L 12/07/20 07:01 [place] # (Auto) 0.7 K/mm3 (0.0-0.8) 12/07/20 07:01 Eos # (Auto) 0.0 K/mm3 (0.0-0.4) 12/07/20 07:01 Baso # (Auto) 0.0 K/mm3 (0.0-0.1) 12/07/20 07:01 Seg Neutrophils % 82.7 % (40.0-70.0) H 12/07/20 07:01 Seg Neutrophils # 6.6 K/mm3 (1.8-7.7) 12/07/20 07:01 D-Dimer > 24057 ng/mlDDU (0-234) H 12/11/20 10:33 ABG pH 7.449 (7.320-7.450) 12/10/20 08:40 POC ABG pCO2 40.8 mmHg (32.0-48.0) 12/10/20 08:40 POC ABG pO2 55.3 mmHg (83-108) L 12/10/20 08:40 POC ABG HCO3 27.7 12/10/20 08:40 ABG O2 Saturation 88.3 (0-100) 12/10/20 08:40 POC ABG Base Excess 3.4 12/10/20 08:40 ABG Hemoglobin 16.1 (12.0-17.5) 12/10/20 08:40 ABG Oxyhemoglobin 87.3 (94-98) L 12/10/20 08:40 ABG Methemoglobin 0.3 (0.0-1.5) 12/10/20 08:40 ABG Sodium 143.0 mmol/L (136.0-145.0) 12/10/20 08:40 ABG Potassium 4.3 mmol/L (3.40-4.50) 12/10/20 08:40 ABG Chloride 105.0 mmol/L (98-107) 12/10/20 08:40 ABG Glucose 143 mg/dL (65-95) H 12/10/20 08:40 Carboxyhemoglobin 0.8 (0.5-1.5) 12/10/20 08:40 FiO2 % 100.0 12/10/20 08:40 Sodium 145 mmol/L (137-145) 12/10/20 07:46 Potassium 4.5 mmol/L (3.6-5.0) 12/10/20 07:46 Chloride 105.1 mmol/L (98-107) 12/10/20 07:46 Carbon Dioxide 28 mmol/L (22-30) 12/10/20 07:46 Anion Gap 16 mmol/L 12/10/20 07:46 BUN 24 mg/dL (9-20) H 12/10/20 07:46 Creatinine 0.7 mg/dL (0.8-1.3) L 12/10/20 07:46 Estimated GFR > 60 ml/min 12/10/20 07:46 BUN/Creatinine Ratio 34 % 12/10/20 07:46 Glucose 160 mg/dL (75-100) H 12/10/20 07:46 POC Glucose 140 mg/dL (70-105) H 12/11/20 11:46 Hemoglobin A1c 5.8 % (4-6) 12/07/20 07:01 Lactic Acid 1.80 mmol/L (0.7-2.0) 12/06/20 19:12 Calcium 8.3 mg/dL (8.4-10.2) L 12/10/20 07:46 Ferritin 1539.0 ng/mL (30.0-300.0) H 12/11/20 10:33 Total Bilirubin 0.70 mg/dL (0.1-1.2) 12/10/20 07:46 AST 35 units/L (5-40) 12/10/20 07:46 ALT 64 units/L (7-56) H 12/10/20 07:46 Alkaline Phosphatase 80 units/L (35-129) 12/10/20 07:46 Lactate Dehydrogenase 669 units/L (91-180) H 12/11/20 10:33 Total Creatine Kinase 261 units/L (55-170) H 12/06/20 10:03 CK-MB (CK-2) 1.4 ng/mL (0.0-4.0) 12/06/20 10:03 CK-MB (CK-2) Rel Index 0.5 (0-4) 12/06/20 10:03 Troponin T < 0.010 ng/mL (0.00-0.029) 12/06/20 10:03 C-Reactive Protein 1.80 mg/dL (0.00-1.30) H 12/11/20 10:33 NT-Pro-B Natriuret Pep 5.79 pg/mL (0-450) 12/06/20 10:03 Total Protein 6.7 g/dL (6.3-8.2) 12/10/20 07:46 Albumin 3.0 g/dL (3.9-5) L 12/10/20 07:46 Albumin/Globulin Ratio 0.8 % 12/10/20 07:46 Procalcitonin 0.07 ng/mL (<0.15) 12/06/20 10:03 Arterial Blood Glucose 143 mg/dL (65-95) H 12/10/20 08:40 Arterial Blood Ionized Calcium 4.4 mg/dL (4.6-5.3) L 12/10/20 08:40 Coronavirus (PCR) Positive (Negative) A 12/06/20 Unknown Microbiology: Microbiology 12/06/20 10:03 Peripheral/Venous Blood Culture - Final NO GROWTH AFTER 5 DAYS 12/06/20 10:03 Peripheral/Venous Blood Culture - Final NO GROWTH AFTER 5 DAYS Santillan/IV: Voiding Method Urinal Active Medications - Current Medications Current Medications: Generic Name Dose Route Start Last Admin Trade Name Freq PRN Reason Stop Dose Admin Acetaminophen 650 mg 12/06/20 17:42 12/07/20 08:02 Acetaminophen 325 Mg Tab PO 650 mg Q4H PRN Administration Pain MILD(1-3)/Fever >100.5/BALDERRAMA Benzocaine/Menthol 1 each 12/07/20 17:20 12/07/20 19:19 Benzocaine/Menthol Lozenge MM 1 each Q2HR PRN Administration Sore Throat Dexamethasone 8 mg 12/07/20 10:00 12/11/20 10:04 Dexamethasone 4 Mg/Ml Vial IV 12/15/20 10:01 8 mg DAILY LORENZO Administration Enoxaparin Sodium 90 mg 12/12/20 00:00 Enoxaparin 100 Mg/1 Ml Inj 1 mg/kg (90 mg) SUB-Q 0000,1200 [facility] Protocol Famotidine 20 mg 12/06/20 22:00 12/10/20 22:09 Famotidine 20 Mg Tab PO 20 mg BID LORENZO Administration Guaifenesin 200 mg 12/06/20 17:00 12/10/20 07:16 Guaifenesin 100 Mg/5 Ml Oral Liqd PO 200 mg Q4H PRN Administration Cough Hydromorphone HCl 0.5 mg 12/06/20 17:44 12/09/20 08:07 Hydromorphone 1 Mg/1 Ml Inj IV 0.5 mg Q3H PRN Administration Pain , Severe (7-10) REMDESIVIR 100 mg/ Sodium 250 mls @ 500 mls/hr 12/08/20 21:00 12/10/20 22:10 Chloride IV 12/11/20 21:29 500 mls/hr Q24HR@2100 LORENZO Administration Dexmedetomidine HCl 400 mcg/ 104 mls @ 4.732 mls/hr 12/11/20 15:00 12/11/20 17:57 Sodium Chloride IV 0.2 mcg/kg/hr TITRATE LORENZO 4.732 mls/hr Administration Protocol 0.2 MCG/KG/HR Insulin Human Lispro 0 unit 12/07/20 07:30 12/11/20 11:30 Insulin Lispro 100 Unit/Ml SUB-Q Not Given ACHS LORENZO Protocol Lorazepam 2 mg 12/10/20 13:22 12/11/20 11:56 Lorazepam 2 Mg/Ml Vial IV 2 mg Q1H PRN Administration CIWA-Ar 8-15 Lorazepam 4 mg 12/10/20 13:22 12/11/20 18:13 Lorazepam 2 Mg/Ml Vial IV 4 mg Q1H PRN Administration CIWA-Ar 16-25 Lorazepam 4 mg 12/10/20 13:22 Lorazepam 2 Mg/Ml Vial IV Q15MIN PRN CIWA-Ar >25 Metoclopramide HCl 10 mg 12/06/20 17:44 Metoclopramide 10 Mg/2 Ml Inj IV Q6H PRN Nausea And Vomiting Ondansetron HCl 4 mg 12/06/20 17:42 12/10/20 13:54 Ondansetron 4 Mg/2 Ml Inj IV 4 mg Q8H PRN Administration Nausea And Vomiting Oxycodone/Acetaminophen 1 tab 12/06/20 17:44 12/10/20 07:15 Oxycodone /Acetaminophen 5-325mg Tab PO 1 tab Q6H PRN Administration Pain, Moderate (4-6) Sodium Chloride 10 ml 12/06/20 22:00 12/11/20 10:00 Sodium Chloride 0.9% 10 Ml Flush Syringe IV 10 ml BID LORENZO Administration Sodium Chloride 10 ml 12/06/20 17:42 Sodium Chloride 0.9% 10 Ml Flush Syringe IV PRN PRN LINE FLUSH Sodium Chloride 50 ml 12/07/20 21:00 12/10/20 22:10 Sodium Chloride 0.9% 50 Ml Ivpb IV 12/11/20 21:01 50 ml Q24HR@2100 LORENZO Administration
[2020-12-11] MEDS: FAMOTIDINE 20 MG TAB PO SCH ×2 (20:40→22:27)
[2020-12-11] MEDS: REMDESIVIR 100 MG in SODIUM CHLORIDE 0.9% 250ML 250 ML IV SCH (22:26)
[2020-12-11] MEDS: SODIUM CHLORIDE 0.9% 50 ML IVPB IV SCH (22:27)
[2020-12-12] MEDS: ENOXAPARIN 100 MG/1 ML INJ SUB-Q SCH ×2 (00:02→11:57)
[2020-12-12] MEDS: LORazepam 2 MG/ML VIAL IV PRN ×8 (00:38→22:25)
[2020-12-12] MEDS: INSULIN LISPRO 100 UNIT/ML SUB-Q SCH ×3 (08:24→16:59)
[2020-12-12] MEDS: dexAMETHasone 4 MG/ML VIAL IV SCH (10:51)
[2020-12-12] MEDS: FAMOTIDINE 20 MG TAB PO SCH ×2 (11:44→22:46)
--- NOTE | 2020-12-12 14:44 | XRay Report ---
ABDOMEN 1 VIEW(S) 12/12/2020 1:29 PM INDICATION / CLINICAL INFORMATION: NGT placement. COMPARISON: None available. FINDINGS: The tip of an esophagogastric tube projects over the distal body/antrum of the stomach in expected po sition. Signer Name: Abimael Fish MD Signed: 12/12/2020 2:39 PM Workstation Name: [id number]
[2020-12-12] MEDS: TAMSULOSIN 0.4 MG CAP PO SCH (15:35)
--- NOTE | 2020-12-12 19:44 | Progress Note ---
Assessment and Plan 40-year-old male with no significant past medical history comes in for increasing shortness of breath over the last 3 days. Patient was diagnosed with Covid approximately 7 days ago. Patient has cough paroxysms with no sputum for the past 4 days and subjective fever off and on for the past 4 days. Patient also complains of chest pain and abdominal pain whenever he coughs. Patient denies nausea vomiting or diarrhea. Patient was hypoxic found to be hypoxic at 92% on room air indicating mid to 86% on ambulation. Patient is not on oxygen at home. Patient is not vaccinated. Exposed to Covid pneumonia in the community. No loss of taste or smell. Patient presently sedated. Patient sleeping. Not responding to the verbal stimuli. Patient resting on BIPAP 18/12, rate 25,FIO2 100% and O2 saturation running 89%. Patient running low grade temp. No leukocytosis. Blood pressure 111/81. Pulse 68.. Chest xray done 12/06/20 reported Severe patchy bilateral pulmonary opacities suggesting multifocal viral pneumonia. Patients inflammatory markers: Serum ferritin 1539. D Dimer greater than 10,000 LDH 669 CRP 1.8. Patient presently on Dexamethasone, Therapeutic dose S/C Lovenox., Famotidine. Patient finished course of REMDESIVIR. I spent critical care time of 37 minutes on this patient by reviewing the chart, examine the patient, Review chest xray and lab results, talking to the nursing staff and respiratory therapy and work out plan of treatment in this critically COVID 19 patient with COVID Pneumonia and acute hypoxic respiratory failure. - Patient Problems (1) Acute respiratory failure with hypoxia Current Visit: Yes Status: Acute Plan to address problem: BIPAP 18/12, Rate 25, FIO2 100%. Continue dexamethasone. Continue S/C Lovenox. Continue famotidine. (2) Coronavirus infection Current Visit: Yes Status: Acute Plan to address problem: Management as per infectious diseases. Patient is on Dexamethasone and S/C Lovenox. Finished course of REMDESIVIR. (3) Pneumonia due to COVID-19 virus Current Visit: Yes Status: Acute Plan to address problem: Antibiotics as per infectious diseases. (4) SIRS (systemic inflammatory response syndrome) Current Visit: Yes Status: Acute Plan to address problem: Patient is on Dexamethasone. Subjective Date of service: 12/12/20 Principal diagnosis: COVID Interval history: 40-year-old male with no significant past medical history comes in for increasing shortness of breath over the last 3 days. Patient was diagnosed with Covid approximately 7 days ago. Patient has cough paroxysms with no sputum for the past 4 days and subjective fever off and on for the past 4 days. Patient also complains of chest pain and abdominal pain whenever he coughs. Patient denies nausea vomiting or diarrhea. Patient was hypoxic found to be hypoxic at 92% on room air indicating mid to 86% on ambulation. Patient is not on oxygen at home. Patient is not vaccinated. Exposed to Covid pneumonia in the [facility]. No loss of taste or smell. Patient presently sedated. Patient sleeping. Not responding to the verbal stimuli. Patient resting on BIPAP 18/12, rate 25,FIO2 100% and O2 saturation running 89%. Patient running low grade temp. No leukocytosis. Blood pressure 111/81. Pulse 68. Chest xray done 12/06/20 reported Severe patchy bilateral pulmonary opacities suggesting multifocal viral pneumonia. Patients inflammatory markers: Serum ferritin 1539. D Dimer greater than 10,000 LDH 669 CRP 1.8. Patient presently on Dexamethasone, Therapeutic dose S/C Lovenox., Famotidine. Patient finished course of REMDESIVIR. Objective Vital Signs - 12hr 12/12/20 12/12/20 12/12/20 08:00 08:25 08:27 Temperature 97.7 F Pulse Rate 61 62 62 Pulse Rate [ 61 From Monitor] Respiratory 32 H 33 H 34 H Rate Blood Pressure 108/74 108/74 O2 Sat by Pulse 88 88 88 Oximetry 12/12/20 12/12/20 12/12/20 08:29 08:30 08:31 Temperature Pulse Rate 66 62 62 Pulse Rate [ From Monitor] Respiratory 37 H 33 H 32 H Rate Blood Pressure 108/74 102/65 102/65 O2 Sat by Pulse 87 85 86 Oximetry 12/12/20 12/12/20 12/12/20 08:33 08:35 08:37 Temperature Pulse Rate 62 61 61 Pulse Rate [ From Monitor] Respiratory 33 H 32 H 33 H Rate Blood Pressure 102/65 102/65 102/65 O2 Sat by Pulse 88 92 88 Oximetry 12/12/20 12/12/20 12/12/20 08:39 08:41 08:43 Temperature Pulse Rate 61 60 61 Pulse Rate [ From Monitor] Respiratory 31 H 32 H 33 H Rate Blood Pressure 102/65 102/65 102/65 O2 Sat by Pulse 84 90 89 Oximetry 12/12/20 12/12/20 12/12/20 08:45 08:47 08:49 Temperature Pulse Rate 60 63 62 Pulse Rate [ From Monitor] Respiratory 33 H 34 H 33 H Rate Blood Pressure 102/69 102/69 102/69 O2 Sat by Pulse 88 92 88 Oximetry 12/12/20 12/12/20 12/12/20 08:51 08:53 08:55 Temperature Pulse Rate 61 60 61 Pulse Rate [ From Monitor] Respiratory 32 H 32 H 32 H Rate Blood Pressure 102/69 102/69 102/69 O2 Sat by Pulse 87 85 86 Oximetry 12/12/20 12/12/20 12/12/20 08:57 08:59 09:00 Temperature Pulse Rate 60 58 L 59 L Pulse Rate [ From Monitor] Respiratory 29 H 26 H 20 Rate Blood Pressure 102/69 102/69 108/62 O2 Sat by Pulse 89 87 90 Oximetry 12/12/20 12/12/20 12/12/20 09:01 09:03 09:05 Temperature Pulse Rate 59 L 64 62 Pulse Rate [ From Monitor] Respiratory 33 H 34 H 32 H Rate Blood Pressure 108/62 108/62 108/62 O2 Sat by Pulse 90 88 91 Oximetry 12/12/20 12/12/20 12/12/20 09:07 09:09 09:11 Temperature Pulse Rate 62 59 L 58 L Pulse Rate [ From Monitor] Respiratory 34 H 27 H 33 H Rate Blood Pressure 108/62 108/62 108/62 O2 Sat by Pulse 88 89 89 Oximetry 12/12/20 12/12/20 12/12/20 09:13 09:15 09:17 Temperature Pulse Rate 62 66 62 Pulse Rate [ From Monitor] Respiratory 34 H 34 H 32 H Rate Blood Pressure 108/62 99/66 99/66 O2 Sat by Pulse 86 89 84 Oximetry 12/12/20 12/12/20 12/12/20 09:19 09:21 09:23 Temperature Pulse Rate 61 61 62 Pulse Rate [ From Monitor] Respiratory 33 H 31 H 31 H Rate Blood Pressure 99/66 99/66 99/66 O2 Sat by Pulse 87 87 87 Oximetry 12/12/20 12/12/20 12/12/20 09:25 09:27 09:29 Temperature Pulse Rate 59 L 60 65 Pulse Rate [ From Monitor] Respiratory 36 H 29 H 32 H Rate Blood Pressure 99/66 99/66 99/66 O2 Sat by Pulse 88 88 87 Oximetry 12/12/20 12/12/20 12/12/20 09:30 09:31 09:33 Temperature Pulse Rate 64 63 62 Pulse Rate [ From Monitor] Respiratory 31 H 32 H 33 H Rate Blood Pressure 113/76 113/76 113/76 O2 Sat by Pulse 87 86 91 Oximetry 12/12/20 12/12/20 12/12/20 09:35 09:37 09:39 Temperature Pulse Rate 61 57 L 59 L Pulse Rate [ From Monitor] Respiratory 32 H 34 H 17 Rate Blood Pressure 113/76 113/76 113/76 O2 Sat by Pulse 88 89 89 Oximetry 12/12/20 12/12/20 12/12/20 09:41 09:43 09:45 Temperature Pulse Rate 63 64 60 Pulse Rate [ From Monitor] Respiratory 34 H 33 H 32 H Rate Blood Pressure 113/76 113/76 102/70 O2 Sat by Pulse 88 87 88 Oximetry 12/12/20 12/12/20 12/12/20 09:47 09:49 09:51 Temperature Pulse Rate 64 62 63 Pulse Rate [ From Monitor] Respiratory 33 H 35 H 32 H Rate Blood Pressure 102/70 102/70 102/70 O2 Sat by Pulse 91 89 89 Oximetry 12/12/20 12/12/20 12/12/20 09:53 09:55 09:57 Temperature Pulse Rate 60 61 62 Pulse Rate [ From Monitor] Respiratory 30 H 30 H 32 H Rate Blood Pressure 102/70 102/70 102/70 O2 Sat by Pulse 90 92 90 Oximetry 12/12/20 12/12/20 12/12/20 10:07 10:09 10:11 Temperature Pulse Rate 66 67 65 Pulse Rate [ From Monitor] Respiratory 23 34 H 33 H Rate Blood Pressure 107/67 107/67 107/67 O2 Sat by Pulse 88 90 90 Oximetry 12/12/20 12/12/20 12/12/20 10:13 10:15 10:17 Temperature Pulse Rate 65 65 63 Pulse Rate [ From Monitor] Respiratory 30 H 31 H 28 H Rate Blood Pressure 107/67 110/73 110/73 O2 Sat by Pulse 91 90 92 Oximetry 12/12/20 12/12/2021 10:19 10:21 10:23 Temperature Pulse Rate 63 64 65 Pulse Rate [ From Monitor] Respiratory 32 H 33 H 33 H Rate Blood Pressure 110/73 110/73 110/73 O2 Sat by Pulse 90 90 91 Oximetry 12/12/20 12/12/20 12/12/20 10:25 10:27 10:29 Temperature Pulse Rate 58 L 55 L 65 Pulse Rate [ From Monitor] Respiratory 34 H 30 H 34 H Rate Blood Pressure 110/73 110/73 110/73 O2 Sat by Pulse 92 91 91 Oximetry 12/12/20 12/12/20 12/12/20 10:30 10:31 10:33 Temperature Pulse Rate 64 64 60 Pulse Rate [ From Monitor] Respiratory 33 H 35 H 31 H Rate Blood Pressure 109/72 109/72 109/72 O2 Sat by Pulse 90 91 89 Oximetry 12/12/20 12/12/20 12/12/20 10:35 10:37 10:39 Temperature Pulse Rate 58 L 64 53 L Pulse Rate [ From Monitor] Respiratory 34 H 34 H 32 H Rate Blood Pressure 109/72 109/72 109/72 O2 Sat by Pulse 92 88 89 Oximetry 12/12/20 12/12/20 12/12/20 10:41 10:43 10:45 Temperature Pulse Rate 58 L 72 63 Pulse Rate [ From Monitor] Respiratory 33 H 38 H 33 H Rate Blood Pressure 109/72 109/72 113/74 O2 Sat by Pulse 90 89 91 Oximetry 12/12/20 12/12/20 12/12/20 10:47 10:49 10:51 Temperature Pulse Rate 61 61 49 L Pulse Rate [ From Monitor] Respiratory 33 H 36 H 36 H Rate Blood Pressure 113/74 113/74 113/74 O2 Sat by Pulse 90 93 90 Oximetry 12/12/20 12/12/20 12/12/20 10:53 10:55 10:57 Temperature Pulse Rate 57 L 61 60 Pulse Rate [ From Monitor] Respiratory 34 H 35 H 34 H Rate Blood Pressure 113/74 113/74 113/74 O2 Sat by Pulse 88 91 91 Oximetry 12/12/20 12/12/20 12/12/20 10:59 11:00 11:01 Temperature Pulse Rate 60 65 64 Pulse Rate [ From Monitor] Respiratory 32 H 27 H 36 H Rate Blood Pressure 113/74 99/64 99/64 O2 Sat by Pulse 87 91 92 Oximetry 12/12/20 12/12/20 12/12/20 11:03 11:05 11:07 Temperature Pulse Rate 64 63 60 Pulse Rate [ From Monitor] Respiratory 29 H 31 H 32 H Rate Blood Pressure 99/64 99/64 99/64 O2 Sat by Pulse 91 91 93 Oximetry 12/12/20 12/12/20 12/12/20 11:09 11:11 11:13 Temperature Pulse Rate 61 60 64 Pulse Rate [ From Monitor] Respiratory 36 H 34 H 33 H Rate Blood Pressure 99/64 99/64 99/64 O2 Sat by Pulse 93 91 93 Oximetry 12/12/20 12/12/20 12/12/20 11:15 11:17 11:19 Temperature Pulse Rate 58 L 64 66 Pulse Rate [ From Monitor] Respiratory 28 H 27 H 34 H Rate Blood Pressure 103/73 103/73 103/73 O2 Sat by Pulse 92 91 93 Oximetry 12/12/20 12/12/20 12/12/20 11:21 11:23 11:25 Temperature Pulse Rate 62 63 62 Pulse Rate [ From Monitor] Respiratory 36 H 34 H 22 Rate Blood Pressure 103/73 103/73 103/73 O2 Sat by Pulse 92 91 90 Oximetry 12/12/20 12/12/20 12/12/20 11:27 11:29 11:30 Temperature Pulse Rate 59 L 64 62 Pulse Rate [ From Monitor] Respiratory 32 H 33 H 34 H Rate Blood Pressure 103/73 103/73 104/70 O2 Sat by Pulse 90 89 89 Oximetry 12/12/20 12/12/20 12/12/20 11:31 11:33 11:35 Temperature Pulse Rate 62 66 62 Pulse Rate [ From Monitor] Respiratory 25 H 31 H 32 H Rate Blood Pressure 104/70 104/70 104/70 O2 Sat by Pulse 89 90 97 Oximetry 12/12/20 12/12/20 12/12/20 11:37 11:39 12:00 Temperature Pulse Rate 62 61 61 Pulse Rate [ 61 From Monitor] Respiratory 35 H 35 H 34 H Rate Blood Pressure 104/70 104/70 O2 Sat by Pulse 91 92 90 Oximetry 12/12/20 12/12/20 12/12/20 13:17 13:19 13:21 Temperature Pulse Rate 65 62 60 Pulse Rate [ From Monitor] Respiratory 33 H 31 H 33 H Rate Blood Pressure 110/69 110/69 110/69 O2 Sat by Pulse 90 92 89 Oximetry 12/12/20 12/12/20 12/12/20 13:23 13:24 13:25 Temperature Pulse Rate 72 97 H 65 Pulse Rate [ From Monitor] Respiratory 20 32 H 32 H Rate Blood Pressure 110/69 110/69 110/69 O2 Sat by Pulse 88 91 90 Oximetry 12/12/20 12/12/20 12/12/20 13:27 13:29 13:30 Temperature Pulse Rate 68 66 59 L Pulse Rate [ From Monitor] Respiratory 29 H 30 H 30 H Rate Blood Pressure 110/69 110/69 110/74 O2 Sat by Pulse 91 92 95 Oximetry 12/12/20 12/12/20 12/12/20 13:31 13:33 13:35 Temperature Pulse Rate 57 L 58 L 65 Pulse Rate [ From Monitor] Respiratory 25 H 31 H 30 H Rate Blood Pressure 110/74 110/74 110/74 O2 Sat by Pulse 94 88 90 Oximetry 12/12/20 12/12/20 12/12/20 13:37 13:39 13:41 Temperature Pulse Rate 67 64 68 Pulse Rate [ From Monitor] Respiratory 28 H 32 H 31 H Rate Blood Pressure 110/74 110/74 110/74 O2 Sat by Pulse 92 94 95 Oximetry 12/12/20 12/12/20 12/12/20 13:43 13:45 13:47 Temperature Pulse Rate 70 69 69 Pulse Rate [ From Monitor] Respiratory 34 H 33 H 32 H Rate Blood Pressure 110/74 119/78 119/78 O2 Sat by Pulse 93 93 93 Oximetry 12/12/20 12/12/20 12/12/20 13:49 13:51 13:53 Temperature Pulse Rate 67 68 68 Pulse Rate [ From Monitor] Respiratory 32 H 32 H 32 H Rate Blood Pressure 119/78 119/78 119/78 O2 Sat by Pulse 95 94 96 Oximetry 12/12/20 12/12/20 12/12/20 13:55 13:57 13:59 Temperature Pulse Rate 69 70 67 Pulse Rate [ From Monitor] Respiratory 33 H 32 H 32 H Rate Blood Pressure 119/78 119/78 119/78 O2 Sat by Pulse 95 94 95 Oximetry 12/12/20 12/12/20 12/12/20 14:00 14:01 14:03 Temperature Pulse Rate 68 69 69 Pulse Rate [ From Monitor] Respiratory 32 H 32 H 33 H Rate Blood Pressure 115/74 115/74 115/74 O2 Sat by Pulse 96 96 95 Oximetry 12/12/20 12/12/20 12/12/20 14:05 14:07 14:09 Temperature Pulse Rate 67 68 69 Pulse Rate [ From Monitor] Respiratory 28 H 31 H 31 H Rate Blood Pressure 115/74 115/74 115/74 O2 Sat by Pulse 96 96 96 Oximetry 12/12/20 12/12/20 12/12/20 14:11 14:13 14:15 Temperature Pulse Rate 69 67 53 L Pulse Rate [ From Monitor] Respiratory 29 H 30 H 31 H Rate Blood Pressure 115/74 115/74 124/76 O2 Sat by Pulse 96 96 95 Oximetry 12/12/20 12/12/20 12/12/20 14:17 14:19 14:21 Temperature Pulse Rate 62 59 L Pulse Rate [ From Monitor] Respiratory 30 H 33 H Rate Blood Pressure 110/74 110/74 110/74 O2 Sat by Pulse 93 92 89 Oximetry 12/12/20 12/12/20 12/12/20 14:23 14:25 14:27 Temperature Pulse Rate 65 56 L 64 Pulse Rate [ From Monitor] Respiratory 32 H 31 H 30 H Rate Blood Pressure 110/74 110/74 110/74 O2 Sat by Pulse 89 89 86 Oximetry 12/12/20 12/12/20 12/12/20 14:29 14:30 14:31 Temperature Pulse Rate 62 64 65 Pulse Rate [ From Monitor] Respiratory 31 H 29 H 26 H Rate Blood Pressure 110/74 119/80 119/80 O2 Sat by Pulse 87 86 88 Oximetry 12/12/20 12/12/20 12/12/20 14:33 14:35 14:37 Temperature Pulse Rate 63 61 63 Pulse Rate [ From Monitor] Respiratory 30 H 30 H 30 H Rate Blood Pressure 119/80 119/80 119/80 O2 Sat by Pulse 87 87 86 Oximetry 12/12/20 12/12/20 12/12/20 14:39 14:41 14:43 Temperature Pulse Rate 62 63 62 Pulse Rate [ From Monitor] Respiratory 28 H 29 H 29 H Rate Blood Pressure 119/80 119/80 119/80 O2 Sat by Pulse 86 87 88 Oximetry 12/12/20 12/12/20 12/12/20 14:45 14:47 14:49 Temperature Pulse Rate 64 64 63 Pulse Rate [ From Monitor] Respiratory 29 H 29 H 30 H Rate Blood Pressure 123/76 123/76 123/76 O2 Sat by Pulse 83 L 85 88 Oximetry 12/12/20 12/12/20 12/12/20 14:51 14:53 14:55 Temperature Pulse Rate 64 64 60 Pulse Rate [ From Monitor] Respiratory 30 H 29 H 28 H Rate Blood Pressure 123/76 123/76 123/76 O2 Sat by Pulse 87 86 88 Oximetry 12/12/20 12/12/20 12/12/20 14:57 14:59 15:00 Temperature Pulse Rate 61 64 61 Pulse Rate [ From Monitor] Respiratory 29 H 28 H 30 H Rate Blood Pressure 123/76 123/76 115/72 O2 Sat by Pulse 84 84 88 Oximetry 12/12/20 12/12/20 12/12/20 15:01 15:03 15:05 Temperature Pulse Rate 60 62 64 Pulse Rate [ From Monitor] Respiratory 30 H 28 H 28 H Rate Blood Pressure 115/72 115/72 115/72 O2 Sat by Pulse 86 86 85 Oximetry 12/12/20 12/12/20 12/12/20 15:07 15:09 15:11 Temperature Pulse Rate 62 61 63 Pulse Rate [ From Monitor] Respiratory 27 H 30 H 28 H Rate Blood Pressure 115/72 115/72 115/72 O2 Sat by Pulse 86 87 87 Oximetry 12/12/20 12/12/20 12/12/20 15:13 15:15 15:17 Temperature Pulse Rate 63 62 61 Pulse Rate [ From Monitor] Respiratory 27 H 26 H 17 Rate Blood Pressure 115/72 120/77 120/77 O2 Sat by Pulse 88 91 91 Oximetry 12/12/20 12/12/20 12/12/20 15:19 15:21 15:23 Temperature Pulse Rate 60 65 65 Pulse Rate [ From Monitor] Respiratory 28 H 29 H 29 H Rate Blood Pressure 120/77 120/77 120/77 O2 Sat by Pulse 90 90 91 Oximetry 12/12/20 12/12/20 12/12/20 15:25 15:27 15:29 Temperature Pulse Rate 63 64 64 Pulse Rate [ From Monitor] Respiratory 22 30 H 29 H Rate Blood Pressure 120/77 120/77 120/77 O2 Sat by Pulse 92 91 90 Oximetry 12/12/20 12/12/20 12/12/20 15:30 15:31 15:33 Temperature Pulse Rate 65 63 64 Pulse Rate [ From Monitor] Respiratory 26 H 27 H 27 H Rate Blood Pressure 115/75 115/75 115/75 O2 Sat by Pulse 91 92 92 Oximetry 12/12/20 12/12/20 12/12/20 15:35 15:37 15:39 Temperature Pulse Rate 62 63 60 Pulse Rate [ From Monitor] Respiratory 28 H 28 H 29 H Rate Blood Pressure 115/75 115/75 115/75 O2 Sat by Pulse 93 91 92 Oximetry 12/12/20 12/12/20 12/12/20 15:41 15:43 15:45 Temperature Pulse Rate 62 63 62 Pulse Rate [ From Monitor] Respiratory 30 H 28 H 29 H Rate Blood Pressure 115/75 115/75 121/78 O2 Sat by Pulse 89 91 92 Oximetry 12/12/20 12/12/20 12/12/20 15:55 15:57 15:59 Temperature Pulse Rate 62 65 64 Pulse Rate [ From Monitor] Respiratory 29 H 29 H 28 H Rate Blood Pressure 115/75 115/75 115/75 O2 Sat by Pulse 92 91 94 Oximetry 12/12/20 12/12/20 12/12/20 16:00 16:01 16:03 Temperature Pulse Rate 66 66 64 Pulse Rate [ 66 From Monitor] Respiratory 29 H 27 H 26 H Rate Blood Pressure 122/80 122/80 122/80 O2 Sat by Pulse 91 93 91 Oximetry 12/12/20 12/12/20 12/12/20 16:05 16:07 16:09 Temperature Pulse Rate 66 67 67 Pulse Rate [ From Monitor] Respiratory 28 H 28 H 28 H Rate Blood Pressure 122/80 122/80 122/80 O2 Sat by Pulse 91 91 92 Oximetry 12/12/20 12/12/20 12/12/20 16:11 16:13 16:15 Temperature Pulse Rate 65 65 68 Pulse Rate [ From Monitor] Respiratory 31 H 28 H 29 H Rate Blood Pressure 122/80 122/80 123/83 O2 Sat by Pulse 91 90 91 Oximetry 12/12/20 12/12/20 12/12/20 16:17 16:19 16:21 Temperature Pulse Rate 69 68 68 Pulse Rate [ From Monitor] Respiratory 31 H 28 H 28 H Rate Blood Pressure 123/83 123/83 122/80 O2 Sat by Pulse 91 91 92 Oximetry 12/12/20 12/12/20 12/12/20 16:23 16:25 16:27 Temperature Pulse Rate 63 68 68 Pulse Rate [ From Monitor] Respiratory 29 H 30 H 28 H Rate Blood Pressure 122/80 122/80 122/80 O2 Sat by Pulse 95 92 91 Oximetry 12/12/20 12/12/20 12/12/20 16:29 16:30 16:31 Temperature Pulse Rate 67 66 67 Pulse Rate [ From Monitor] Respiratory 30 H 30 H 31 H Rate Blood Pressure 122/80 118/80 118/80 O2 Sat by Pulse 93 90 91 Oximetry 12/12/20 12/12/20 12/12/20 16:33 16:35 16:37 Temperature Pulse Rate 68 66 66 Pulse Rate [ From Monitor] Respiratory 29 H 27 H 19 Rate Blood Pressure 118/80 118/80 118/80 O2 Sat by Pulse 91 90 93 Oximetry 12/12/20 12/12/20 12/12/20 16:39 16:41 16:43 Temperature Pulse Rate 67 66 67 Pulse Rate [ From Monitor] Respiratory 30 H 28 H 29 H Rate Blood Pressure 118/80 118/80 118/80 O2 Sat by Pulse 92 91 89 Oximetry 12/12/20 12/12/20 12/12/20 16:45 16:47 16:49 Temperature Pulse Rate 65 66 67 Pulse Rate [ From Monitor] Respiratory 27 H 30 H 28 H Rate Blood Pressure 116/83 116/83 116/83 O2 Sat by Pulse 91 90 88 Oximetry 12/12/20 12/12/20 12/12/20 16:51 16:53 16:55 Temperature Pulse Rate 66 66 62 Pulse Rate [ From Monitor] Respiratory 25 H 30 H 24 Rate Blood Pressure 116/83 116/83 116/83 O2 Sat by Pulse 93 90 91 Oximetry 12/12/20 12/12/20 12/12/20 16:57 16:58 16:59 Temperature Pulse Rate 57 L 56 L 65 Pulse Rate [ From Monitor] Respiratory 31 H 35 H 14 Rate Blood Pressure 116/83 122/80 116/83 O2 Sat by Pulse 91 89 91 Oximetry 12/12/20 12/12/20 12/12/20 17:00 17:01 17:03 Temperature Pulse Rate 58 L 63 62 Pulse Rate [ From Monitor] Respiratory 33 H 38 H 36 H Rate Blood Pressure 120/81 120/81 120/81 O2 Sat by Pulse 88 89 88 Oximetry 12/12/20 12/12/20 12/12/20 17:05 17:07 17:09 Temperature Pulse Rate 63 61 62 Pulse Rate [ From Monitor] Respiratory 33 H 32 H 31 H Rate Blood Pressure 120/81 120/81 120/81 O2 Sat by Pulse 87 88 86 Oximetry 12/12/20 12/12/20 12/12/20 17:11 17:12 17:13 Temperature Pulse Rate 64 63 58 L Pulse Rate [ From Monitor] Respiratory 31 H 30 H 29 H Rate Blood Pressure 120/81 116/83 120/81 O2 Sat by Pulse 89 91 87 Oximetry 12/12/20 12/12/20 12/12/20 17:15 17:16 17:17 Temperature Pulse Rate 63 64 63 Pulse Rate [ From Monitor] Respiratory 32 H 32 H 31 H Rate Blood Pressure 117/75 120/81 117/75 O2 Sat by Pulse 86 84 89 Oximetry 12/12/20 12/12/20 12/12/20 17:19 17:21 17:22 Temperature Pulse Rate 64 62 63 Pulse Rate [ From Monitor] Respiratory 31 H 30 H 31 H Rate Blood Pressure 117/75 116/83 117/75 O2 Sat by Pulse 84 87 84 Oximetry 12/12/20 12/12/20 12/12/20 17:23 17:25 17:27 Temperature Pulse Rate 58 L 65 58 L Pulse Rate [ From Monitor] Respiratory 30 H 29 H 31 H Rate Blood Pressure 116/83 116/83 116/83 O2 Sat by Pulse 86 84 85 Oximetry 12/12/20 12/12/20 12/12/20 17:29 17:30 17:31 Temperature Pulse Rate 58 L 62 63 Pulse Rate [ From Monitor] Respiratory 29 H 32 H 31 H Rate Blood Pressure 116/83 112/80 112/80 O2 Sat by Pulse 84 85 84 Oximetry 12/12/20 12/12/20 12/12/20 17:33 17:35 17:37 Temperature Pulse Rate 64 63 63 Pulse Rate [ From Monitor] Respiratory 30 H 28 H 29 H Rate Blood Pressure 112/80 112/80 112/80 O2 Sat by Pulse 83 L 84 85 Oximetry 12/12/20 12/12/20 12/12/20 17:39 17:41 17:43 Temperature Pulse Rate 53 L 55 L 60 Pulse Rate [ From Monitor] Respiratory 16 32 H 32 H Rate Blood Pressure 112/80 112/80 112/80 O2 Sat by Pulse 89 87 85 Oximetry 12/12/20 12/12/20 12/12/20 17:45 17:47 17:49 Temperature Pulse Rate 63 64 63 Pulse Rate [ From Monitor] Respiratory 31 H 32 H 30 H Rate Blood Pressure 118/81 118/81 118/81 O2 Sat by Pulse 88 84 85 Oximetry 12/12/20 12/12/20 12/12/20 17:51 17:53 17:55 Temperature Pulse Rate 63 60 61 Pulse Rate [ From Monitor] Respiratory 30 H 20 24 Rate Blood Pressure 118/81 117/75 117/75 O2 Sat by Pulse 84 84 86 Oximetry 12/12/20 12/12/20 12/12/20 17:57 17:59 18:00 Temperature Pulse Rate 62 64 52 L Pulse Rate [ From Monitor] Respiratory 30 H 26 H 29 H Rate Blood Pressure 117/75 117/75 119/78 O2 Sat by Pulse 84 86 85 Oximetry 12/12/20 12/12/20 12/12/20 18:01 18:03 18:05 Temperature Pulse Rate 61 61 62 Pulse Rate [ From Monitor] Respiratory 21 30 H 17 Rate Blood Pressure 119/78 119/78 119/78 O2 Sat by Pulse 87 86 89 Oximetry 12/12/20 12/12/20 12/12/20 18:07 18:09 18:11 Temperature Pulse Rate 63 68 67 Pulse Rate [ From Monitor] Respiratory 25 H 20 29 H Rate Blood Pressure 119/78 119/78 119/78 O2 Sat by Pulse 88 87 89 Oximetry 12/12/20 12/12/20 12/12/20 18:13 18:15 18:17 Temperature Pulse Rate 67 67 69 Pulse Rate [ From Monitor] Respiratory 29 H 26 H 30 H Rate Blood Pressure 119/78 121/83 121/83 O2 Sat by Pulse 88 88 88 Oximetry 12/12/20 18:45 Temperature Pulse Rate 67 Pulse Rate [ From Monitor] Respiratory 28 H Rate Blood Pressure 110/76 O2 Sat by Pulse 89 Oximetry Constitutional: no acute distress, asleep, other (On BIPAP with FIO2 100%.) Eyes: non-icteric ENT: oropharynx erythematous Neck: supple, no lymphadenopathy Effort: mildly labored Ascultation: Bilateral: rales, rhonchi Cardiovascular: regular rate and rhythm Gastrointestinal: normoactive bowel sounds, soft, non-tender Integumentary: normal Extremities: no cyanosis, no edema Neurologic: unable to assess Psychiatric: other (Unable to assess due to mental status.) CBC and BMP: 12/07/20 07:01 12/10/20 07:46 ABG, PT/INR, D-dimer: ABG ABG pH 7.449 (7.320-7.450) 12/10/20 08:40 POC ABG pCO2 40.8 mmHg (32.0-48.0) 12/10/20 08:40 POC ABG pO2 55.3 mmHg (83-108) L 12/10/20 08:40 POC ABG HCO3 27.7 12/10/20 08:40 ABG O2 Saturation 88.3 (0-100) 12/10/20 08:40 PT/INR, D-dimer D-Dimer > 88716 ng/mlDDU (0-234) H 12/11/20 10:33 Abnormal lab findings: Abnormal Labs 12/06/20 12/06/20 12/06/20 10:03 10:03 10:03 RBC 5.06 H Hgb 16.6 H Hct 46.5 H MCH 33 H MCHC 36 H RDW 13.0 L Lymph % (Auto) 12.3 L Winkler % (Auto) Lymph # (Auto) 0.6 L Seg Neutrophils % 80.5 H D-Dimer POC ABG pO2 ABG Oxyhemoglobin ABG Glucose Sodium 136 L Chloride 96.3 L Carbon Dioxide BUN Creatinine 0.7 L Glucose 229 H POC Glucose Lactic Acid 2.90 H* Calcium Ferritin AST 46 H ALT Lactate Dehydrogenase Total Creatine Kinase 261 H C-Reactive Protein Albumin 3.7 L Arterial Blood Glucose Arterial Blood Ionized Calcium Coronavirus (PCR) 12/06/20 12/06/20 12/06/20 10:03 10:03 10:03 RBC Hgb Hct MCH MCHC RDW Lymph % (Auto) Winkler % (Auto) Lymph # (Auto) Seg Neutrophils % D-Dimer 400.56 H POC ABG pO2 ABG Oxyhemoglobin ABG Glucose Sodium Chloride Carbon Dioxide BUN Creatinine Glucose 229 H POC Glucose Lactic Acid Calcium Ferritin 1901.0 H AST ALT Lactate Dehydrogenase 395 H Total Creatine Kinase C-Reactive Protein 15.80 H Albumin Arterial Blood Glucose Arterial Blood Ionized Calcium Coronavirus (PCR) 12/06/20 12/07/20 12/07/20 Unknown 07:01 07:01 RBC Hgb Hct MCH MCHC 35 H RDW 13.1 L Lymph % (Auto) 8.6 L Winkler % (Auto) 8.6 H Lymph # (Auto) 0.7 L Seg Neutrophils % 82.7 H D-Dimer POC ABG pO2 ABG Oxyhemoglobin ABG Glucose Sodium Chloride Carbon Dioxide BUN Creatinine 0.5 L Glucose 147 H POC Glucose Lactic Acid Calcium 8.3 L Ferritin AST ALT Lactate Dehydrogenase Total Creatine Kinase C-Reactive Protein Albumin 3.4 L Arterial Blood Glucose Arterial Blood Ionized Calcium Coronavirus (PCR) Positive A 12/07/20 12/07/20 12/07/20 07:27 12:23 16:00 RBC Hgb Hct MCH MCHC RDW Lymph % (Auto) Winkler % (Auto) Lymph # (Auto) Seg Neutrophils % D-Dimer POC ABG pO2 ABG Oxyhemoglobin ABG Glucose Sodium Chloride Carbon Dioxide BUN Creatinine Glucose POC Glucose 140 H 144 H 222 H Lactic Acid Calcium Ferritin AST ALT Lactate Dehydrogenase Total Creatine Kinase C-Reactive Protein Albumin Arterial Blood Glucose Arterial Blood Ionized Calcium Coronavirus (PCR) 12/07/20 12/07/20 12/08/20 19:12 21:50 07:26 RBC Hgb Hct MCH MCHC RDW Lymph % (Auto) Winkler % (Auto) Lymph # (Auto) Seg Neutrophils % D-Dimer POC ABG pO2 ABG Oxyhemoglobin ABG Glucose Sodium Chloride Carbon Dioxide 32 H BUN Creatinine 0.6 L 0.5 L Glucose 262 H 136 H POC Glucose 214 H Lactic Acid Calcium 8.2 L Ferritin AST 69 H 56 H ALT 64 H 61 H Lactate Dehydrogenase Total Creatine Kinase C-Reactive Protein Albumin 3.0 L 3.1 L Arterial Blood Glucose Arterial Blood Ionized Calcium Coronavirus (PCR) 12/08/20 12/08/20 12/08/20 07:58 12:06 13:43 RBC Hgb Hct MCH MCHC RDW Lymph % (Auto) Winkler % (Auto) Lymph # (Auto) Seg Neutrophils % D-Dimer 539.70 H POC ABG pO2 ABG Oxyhemoglobin ABG Glucose Sodium Chloride Carbon Dioxide BUN Creatinine Glucose POC Glucose 136 H 139 H Lactic Acid Calcium Ferritin AST ALT Lactate Dehydrogenase Total Creatine Kinase C-Reactive Protein Albumin Arterial Blood Glucose Arterial Blood Ionized Calcium Coronavirus (PCR) 12/08/20 12/08/20 12/08/20 13:43 13:43 16:22 RBC Hgb Hct MCH MCHC RDW Lymph % (Auto) Winkler % (Auto) Lymph # (Auto) Seg Neutrophils % D-Dimer POC ABG pO2 ABG Oxyhemoglobin ABG Glucose Sodium Chloride Carbon Dioxide BUN Creatinine Glucose POC Glucose 223 H Lactic Acid Calcium Ferritin 2970.0 H AST ALT Lactate Dehydrogenase 662 H Total Creatine Kinase C-Reactive Protein 15.80 H Albumin Arterial Blood Glucose Arterial Blood Ionized Calcium Coronavirus (PCR) 12/08/20 12/09/20 12/09/20 21:17 08:00 09:12 RBC Hgb Hct MCH MCHC RDW Lymph % (Auto) Winkler % (Auto) Lymph # (Auto) Seg Neutrophils % D-Dimer POC ABG pO2 ABG Oxyhemoglobin ABG Glucose Sodium Chloride Carbon Dioxide BUN 23 H Creatinine 0.6 L Glucose 167 H POC Glucose 152 H 152 H Lactic Acid Calcium Ferritin AST 48 H ALT 81 H Lactate Dehydrogenase Total Creatine Kinase C-Reactive Protein Albumin 3.2 L Arterial Blood Glucose Arterial Blood Ionized Calcium Coronavirus (PCR) 12/09/20 12/09/20 12/09/20 11:54 16:17 21:00 RBC Hgb Hct MCH MCHC RDW Lymph % (Auto) Winkler % (Auto) Lymph # (Auto) Seg Neutrophils % D-Dimer POC ABG pO2 ABG Oxyhemoglobin ABG Glucose Sodium Chloride Carbon Dioxide BUN Creatinine Glucose POC Glucose 203 H 232 H 155 H Lactic Acid Calcium Ferritin AST ALT Lactate Dehydrogenase Total Creatine Kinase C-Reactive Protein Albumin Arterial Blood Glucose Arterial Blood Ionized Calcium Coronavirus (PCR) 12/10/20 12/10/20 12/10/20 07:46 08:22 08:40 RBC Hgb Hct MCH MCHC RDW Lymph % (Auto) Winkler % (Auto) Lymph # (Auto) Seg Neutrophils % D-Dimer POC ABG pO2 55.3 L ABG Oxyhemoglobin 87.3 L ABG Glucose 143 H Sodium Chloride Carbon Dioxide BUN 24 H Creatinine 0.7 L Glucose 160 H POC Glucose 135 H Lactic Acid Calcium 8.3 L Ferritin AST ALT 64 H Lactate Dehydrogenase Total Creatine Kinase C-Reactive Protein Albumin 3.0 L Arterial Blood Glucose 143 H Arterial Blood Ionized Calcium 4.4 L Coronavirus (PCR) 12/10/20 12/10/20 12/10/20 11:47 15:38 21:58 RBC Hgb Hct MCH MCHC RDW Lymph % (Auto) Winkler % (Auto) Lymph # (Auto) Seg Neutrophils % D-Dimer POC ABG pO2 ABG Oxyhemoglobin ABG Glucose Sodium Chloride Carbon Dioxide BUN Creatinine Glucose POC Glucose 121 H 178 H 151 H Lactic Acid Calcium Ferritin AST ALT Lactate Dehydrogenase Total Creatine Kinase C-Reactive Protein Albumin Arterial Blood Glucose Arterial Blood Ionized Calcium Coronavirus (PCR) 12/11/20 12/11/20 12/11/20 10:33 10:33 10:33 RBC Hgb Hct MCH MCHC RDW Lymph % (Auto) Winkler % (Auto) Lymph # (Auto) Seg Neutrophils % D-Dimer > 74337 H POC ABG pO2 ABG Oxyhemoglobin ABG Glucose Sodium Chloride Carbon Dioxide BUN Creatinine Glucose POC Glucose Lactic Acid Calcium Ferritin 1539.0 H AST ALT Lactate Dehydrogenase 669 H Total Creatine Kinase C-Reactive Protein 1.80 H Albumin Arterial Blood Glucose Arterial Blood Ionized Calcium Coronavirus (PCR) 12/11/20 12/11/20 12/12/20 11:46 21:29 07:44 RBC Hgb Hct MCH MCHC RDW Lymph % (Auto) Winkler % (Auto) Lymph # (Auto) Seg Neutrophils % D-Dimer POC ABG pO2 ABG Oxyhemoglobin ABG Glucose Sodium Chloride Carbon Dioxide BUN Creatinine Glucose POC Glucose 140 H 169 H 158 H Lactic Acid Calcium Ferritin AST ALT Lactate Dehydrogenase Total Creatine Kinase C-Reactive Protein Albumin Arterial Blood Glucose Arterial Blood Ionized Calcium Coronavirus (PCR) 12/12/20 12/12/20 12:17 16:16 RBC Hgb Hct MCH MCHC RDW Lymph % (Auto) Winkler % (Auto) Lymph # (Auto) Seg Neutrophils % D-Dimer POC ABG pO2 ABG Oxyhemoglobin ABG Glucose Sodium Chloride Carbon Dioxide BUN Creatinine Glucose POC Glucose 170 H 179 H Lactic Acid Calcium Ferritin AST ALT Lactate Dehydrogenase Total Creatine Kinase C-Reactive Protein Albumin Arterial Blood Glucose Arterial Blood Ionized Calcium Coronavirus (PCR)
[2020-12-13] MEDS: ENOXAPARIN 100 MG/1 ML INJ SUB-Q SCH ×2 (00:58→12:10)
[2020-12-13] MEDS: INSULIN LISPRO 100 UNIT/ML SUB-Q SCH ×2 (01:01→08:00)
[2020-12-13] MEDS: ONDANSETRON 4 MG/2 ML INJ IV PRN (06:00)
--- NOTE | 2020-12-13 08:08 | Progress Note ---
Assessment and Plan Assessment and plan: --COVID-19 infection Current Visit: Yes Status: Acute Continue steroids total 10 days Completed remdesivir per protocol for 5 days Severely hypoxemic on continuous BiPAP/100% FiO2 Home O2 evaluation, Prone positioning High inflammatory markers D-dimer 539- >10,000 on empiric full dose anticoagulation with Lovenox Follow inflammatory markers Received Tocilizumab [Actemra] 100 mL 12/08/2020 CTA chest requested,[when patient is stable] pulmonary consulted Very poor prognosis Check CTA chest if patient is stable to go out of the room Lower extremity venous Doppler to rule out DVT 12/11/2020 :I called patient's mother Tierra Lozano at [phone] and discussed patient's critical condition treatment plan , she verbalized understanding, I answered all her questions and I encouraged her to call back if she has any new concerns --Acute metabolic encephalopathy/delirium Current Visit: Yes Status: Acute Continue Precedex for worsening delirium Treat the underlying cause And supportive care --Acute respiratory failure with severe hypoxia Current Visit: Yes Status: Acute Patient is on continuous BiPAP with 100% FiO2 Still hypoxemic with O2 sats of 89%, tachypnea with RR 40 to 49/min We will transfer the patient to IMCU for close observation and monitoring Intubate if needed, informed glass installer technician Dr. Ayers --Bilateral pneumonia Current Visit: Yes Status: Acute On empiric IV Rocephin and Zithromax for now DC antibiotics as procalcitonin is low -- SIRS (systemic inflammatory response syndrome) Current Visit: Yes Status: Acute Patient's clinical picture is consistent with systemic inflammatory response syndrome. D-dimer is 409, lactic acid is 2.99, ferritin is 199, LDH is 595 and CRP is 15.6. -- Hyponatremia/resolved Current Visit: Yes Status: Acute Closely monitor electrolytes --Hyperglycemia Current Visit: Yes Status: Acute Accu-Chek sliding scale coverage check hemoglobin A1c Probably secondary to steroids, HbA1c is less than 6 Closely monitor --DVT prophylaxis; Current Visit: Yes Status: Acute On Lovenox subcu Closely monitor the patient and adjust management as needed Plan of care reviewed with the patient and his nurse I discussed in detail with pulmonary critical and requested consult Patient is critically ill with very poor prognosis Patient initially did not want me to discuss with any family members However later he gave contact number, will try to reach the family and update patient's condition Total critical care time more than 62 minutes The high probability of a clinically significant, sudden or life threatening deterioration of the [pulmonary, endocrine, and metabolic] system(s) required my full and direct attention, intervention and personal management. The aggregate critical care time was [62] minutes. This time is in addition to time spent performing reported procedures but includes the following: [x] Data Review and interpretation [x] Patient assessment and monitoring of vital signs [x] Documentation [x] Medication orders and management Brief history and daily hospital course: 40-year-old -Hung[place] male patient with no significant past medical history was admitted through emergency room on 12/06/2020 with history of fever, generalized body pains, cough and shortness of breath. Patient was placed as PUI and isolation, patient subsequently tested positive for COVID-19 on 12/06/2020, and was managed appropriately per COVID-19 guidelines, ID and pulmonary consulted,Patient has severe COVID-pneumonia and has been in acute respiratory failure with severe hypoxemia requiring high flow oxygen and later continues BiPAP with 100% FiO2, patient is critically ill, with high inflammatory markers. And very poor prognosis, patient is being closely monitored in IMCU 12/07/2020; COVID-19 positive test With hypoxia on high flow oxygen, wean as tolerated Patient is placed on steroids, started remdesivir per protocol Inflammatory markers, prone positioning ID recommendations noted and appreciated 12/08/2020; Patient remains on high flow oxygen, elevated D-dimers Will check CTA chest tomorrow and consult pulmonary 12/09/2020; Remains on high flow oxygen, CTA chest to rule out PE Pulmonary consulted, informed 12/10/2020; patient is in acute respiratory distress and failure On continuous BiPAP, 100% oxygen, sats only 89% Severely tachypneic respiratory rate between 40 to 49/min We will transfer the patient to IMCU for close monitoring Intubate if needed, pulmonary critical notified Patient did not want me to call the next of kin in the chart, her sister, however when the patient's nurse asked for a contact number he gave his mother's telephone number to call #[phone] , when I called this number, someone picked up and said mahnaz and hung up the phone. I will try again to reach the family tomorrow. 12/11/2020; I called patient's mother Tierra Lozano at [phone] and discussed patient's critical condition treatment plan , she verbalized understanding, I answered all her questions and I encouraged her to call back if she has any new concerns 12/12/2020; Patient remains critically ill on continuous BiPAP/100% oxygen On Precedex, On empiric full dose anticoagulation due to very high inflammatory markers On IV steroids, completed remdesivir, received Actemra Patient is critically ill very poor prognosis, I spoke to patient's mother Tierra, yesterday 12/13/2020; patient remains critically ill on continuous BiPAP with 100% FiO2 Patient is lethargic and altered, on Precedex, and full dose anticoagulation Steroids, completed remdesivir and Actemra. History Interval history: I seen and examined the patient at the bedside Patient's chart and medications reviewed Isolation precautions PPE protocols followed Patient is critically ill lethargic on continuous BiPAP 100% O2 sats Mild distress Vital signs noted Hospitalist Physical - Constitutional Vitals: Temp Pulse Resp BP Pulse Ox 98.8 F 78 36 H 117/79 89 12/13/20 03:35 12/13/20 06:48 12/13/20 06:48 12/13/20 06:48 12/13/20 06:48 General appearance: Present: mild distress, well-nourished, other (On continues BiPAP, hypoxic, tachypneic) - EENT Eyes: Present: PERRL, EOM intact - Neck Neck: Present: supple, normal ROM - Respiratory Respiratory effort: normal Respiratory: bilateral: diminished, rhonchi, negative: rales, wheezing - Cardiovascular Rhythm: regular Heart Sounds: Present: S1 & S2 - Extremities Extremities: no ischemia, No edema - Abdominal General gastrointestinal: soft, non-tender, non-distended, normal bowel sounds - Integumentary Integumentary: Present: clear, warm - Psychiatric Psychiatric: appropriate mood/affect, cooperative - Neurologic Neurologic: CNII-XII intact, moves all extremities HEART Score - HEART Score Troponin: Troponin T < 0.010 ng/mL (0.00-0.029) 12/06/20 10:03 Results - Labs CBC & Chem 7: 12/13/20 13:10 12/13/20 13:10 Labs: Laboratory Last Values WBC 7.9 K/mm3 (4.5-11.0) 12/07/20 07:01 RBC 4.68 M/mm3 (3.65-5.03) 12/07/20 07:01 Hgb 15.1 gm/dl (11.8-15.2) 12/07/20 07:01 Hct 43.7 % (35.5-45.6) 12/07/20 07:01 MCV 93 fl (84-94) 12/07/20 07:01 MCH 32 pg (28-32) 12/07/20 07:01 MCHC 35 % (32-34) H 12/07/20 07:01 RDW 13.1 % (13.2-15.2) L 12/07/20 07:01 Plt Count 209 K/mm3 (140-440) 12/07/20 07:01 Lymph % (Auto) 8.6 % (13.4-35.0) L 12/07/20 07:01 Lucas % (Auto) 8.6 % (0.0-7.3) H 12/07/20 07:01 Eos % (Auto) 0.0 % (0.0-4.3) 12/07/20 07:01 Baso % (Auto) 0.1 % (0.0-1.8) 12/07/20 07:01 Lymph # (Auto) 0.7 K/mm3 (1.2-5.4) L 12/07/20 07:01 Lucas # (Auto) 0.7 K/mm3 (0.0-0.8) 12/07/20 07:01 Eos # (Auto) 0.0 K/mm3 (0.0-0.4) 12/07/20 07:01 Baso # (Auto) 0.0 K/mm3 (0.0-0.1) 12/07/20 07:01 Seg Neutrophils % 82.7 % (40.0-70.0) H 12/07/20 07:01 Seg Neutrophils # 6.6 K/mm3 (1.8-7.7) 12/07/20 07:01 D-Dimer > 15695 ng/mlDDU (0-234) H 12/11/20 10:33 ABG pH 7.449 (7.320-7.450) 12/10/20 08:40 POC ABG pCO2 40.8 mmHg (32.0-48.0) 12/10/20 08:40 POC ABG pO2 55.3 mmHg (83-108) L 12/10/20 08:40 POC ABG HCO3 27.7 12/10/20 08:40 ABG O2 Saturation 88.3 (0-100) 12/10/20 08:40 POC ABG Base Excess 3.4 12/10/20 08:40 ABG Hemoglobin 16.1 (12.0-17.5) 12/10/20 08:40 ABG Oxyhemoglobin 87.3 (94-98) L 12/10/20 08:40 ABG Methemoglobin 0.3 (0.0-1.5) 12/10/20 08:40 ABG Sodium 143.0 mmol/L (136.0-145.0) 12/10/20 08:40 ABG Potassium 4.3 mmol/L (3.40-4.50) 12/10/20 08:40 ABG Chloride 105.0 mmol/L (98-107) 12/10/20 08:40 ABG Glucose 143 mg/dL (65-95) H 12/10/20 08:40 Carboxyhemoglobin 0.8 (0.5-1.5) 12/10/20 08:40 FiO2 % 100.0 12/10/20 08:40 Sodium 145 mmol/L (137-145) 12/10/20 07:46 Potassium 4.5 mmol/L (3.6-5.0) 12/10/20 07:46 Chloride 105.1 mmol/L (98-107) 12/10/20 07:46 Carbon Dioxide 28 mmol/L (22-30) 12/10/20 07:46 Anion Gap 16 mmol/L 12/10/20 07:46 BUN 24 mg/dL (9-20) H 12/10/20 07:46 Creatinine 0.7 mg/dL (0.8-1.3) L 12/10/20 07:46 Estimated GFR > 60 ml/min 12/10/20 07:46 BUN/Creatinine Ratio 34 % 12/10/20 07:46 Glucose 160 mg/dL (75-100) H 12/10/20 07:46 POC Glucose 145 mg/dL (70-105) H 12/13/20 07:56 Hemoglobin A1c 5.8 % (4-6) 12/07/20 07:01 Lactic Acid 1.80 mmol/L (0.7-2.0) 12/06/20 19:12 Calcium 8.3 mg/dL (8.4-10.2) L 12/10/20 07:46 Ferritin 1539.0 ng/mL (30.0-300.0) H 12/11/20 10:33 Total Bilirubin 0.70 mg/dL (0.1-1.2) 12/10/20 07:46 AST 35 units/L (5-40) 12/10/20 07:46 ALT 64 units/L (7-56) H 12/10/20 07:46 Alkaline Phosphatase 80 units/L (35-129) 12/10/20 07:46 Lactate Dehydrogenase 669 units/L (91-180) H 12/11/20 10:33 Total Creatine Kinase 261 units/L (55-170) H 12/06/20 10:03 CK-MB (CK-2) 1.4 ng/mL (0.0-4.0) 12/06/20 10:03 CK-MB (CK-2) Rel Index 0.5 (0-4) 12/06/20 10:03 Troponin T < 0.010 ng/mL (0.00-0.029) 12/06/20 10:03 C-Reactive Protein 1.80 mg/dL (0.00-1.30) H 12/11/20 10:33 NT-Pro-B Natriuret Pep 5.79 pg/mL (0-450) 12/06/20 10:03 Total Protein 6.7 g/dL (6.3-8.2) 12/10/20 07:46 Albumin 3.0 g/dL (3.9-5) L 12/10/20 07:46 Albumin/Globulin Ratio 0.8 % 12/10/20 07:46 Procalcitonin 0.07 ng/mL (<0.15) 12/06/20 10:03 Arterial Blood Glucose 143 mg/dL (65-95) H 12/10/20 08:40 Arterial Blood Ionized Calcium 4.4 mg/dL (4.6-5.3) L 12/10/20 08:40 Coronavirus (PCR) Positive (Negative) A 12/06/20 Unknown Santillan/IV: Voiding Method Urinal Active Medications - Current Medications Current Medications: Generic Name Dose Route Start Last Admin Trade Name Freq PRN Reason Stop Dose Admin Acetaminophen 650 mg 12/06/20 17:42 12/07/20 08:02 Acetaminophen 325 Mg Tab PO 650 mg Q4H PRN Administration Pain MILD(1-3)/Fever >100.5/BALDERRAMA Benzocaine/Menthol 1 each 12/07/20 17:20 12/07/20 19:19 Benzocaine/Menthol Lozenge MM 1 each Q2HR PRN Administration Sore Throat Dexamethasone 8 mg 12/07/20 10:00 12/12/20 10:51 Dexamethasone 4 Mg/Ml Vial IV 12/15/20 10:01 8 mg DAILY LORENZO Administration Enoxaparin Sodium 90 mg 12/12/20 00:00 12/13/20 00:58 Enoxaparin 100 Mg/1 Ml Inj 1 mg/kg (90 mg) 90 mg SUB-Q Administration 0000,1200 [facility] Protocol Famotidine 20 mg 12/06/20 22:00 12/12/20 22:46 Famotidine 20 Mg Tab PO 20 mg BID LORENZO Administration Guaifenesin 200 mg 12/06/20 17:00 12/10/20 07:16 Guaifenesin 100 Mg/5 Ml Oral Liqd PO 200 mg Q4H PRN Administration Cough Hydromorphone HCl 0.5 mg 12/06/20 17:44 12/09/20 08:07 Hydromorphone 1 Mg/1 Ml Inj IV 0.5 mg Q3H PRN Administration Pain , Severe (7-10) Dexmedetomidine HCl 400 mcg/ 104 mls @ 4.732 mls/hr 12/11/20 15:00 12/13/20 05:48 Sodium Chloride IV 1.4 mcg/kg/hr TITRATE LORENZO 33.124 mls/hr Administration Protocol 0.2 MCG/KG/HR Insulin Human Lispro 0 unit 12/07/20 07:30 12/13/20 01:01 Insulin Lispro 100 Unit/Ml SUB-Q 3 unit ACHS LORENZO Administration Protocol Lorazepam 2 mg 12/10/20 13:22 12/12/20 22:25 Lorazepam 2 Mg/Ml Vial IV 2 mg Q1H PRN Administration CIWA-Ar 8-15 Lorazepam 4 mg 12/10/20 13:22 12/11/20 18:13 Lorazepam 2 Mg/Ml Vial IV 4 mg Q1H PRN Administration CIWA-Ar 16-25 Lorazepam 4 mg 12/10/20 13:22 Lorazepam 2 Mg/Ml Vial IV Q15MIN PRN CIWA-Ar >25 Metoclopramide HCl 10 mg 12/06/20 17:44 Metoclopramide 10 Mg/2 Ml Inj IV Q6H PRN Nausea And Vomiting Ondansetron HCl 4 mg 12/06/20 17:42 12/13/20 06:00 Ondansetron 4 Mg/2 Ml Inj IV 4 mg Q8H PRN Administration Nausea And Vomiting Oxycodone/Acetaminophen 1 tab 12/06/20 17:44 12/10/20 07:15 Oxycodone /Acetaminophen 5-325mg Tab PO 1 tab Q6H PRN Administration Pain, Moderate (4-6) Sodium Chloride 10 ml 12/06/20 22:00 12/12/20 22:46 Sodium Chloride 0.9% 10 Ml Flush Syringe IV 10 ml BID LORENZO Administration Sodium Chloride 10 ml 12/06/20 17:42 Sodium Chloride 0.9% 10 Ml Flush Syringe IV PRN PRN LINE FLUSH Tamsulosin HCl 0.4 mg 12/12/20 13:00 12/12/20 15:35 Tamsulosin 0.4 Mg Cap PO 0.4 mg QDAY LORENZO Administration
[2020-12-13] MEDS: dexAMETHasone 4 MG/ML VIAL IV SCH (09:56)
--- NOTE | 2020-12-13 10:29 | Progress Note ---
Assessment and Plan Cultures: Blood culture 12/06/2020 no growth today SARS CoV2 PCR positive Assessment: 40-year-old male with no medical history, admitted on 12/14/2020 secondary to 3 days history of cough, malaise, fever, body aches, and shortness of breath. Patient was diagnosed with COVID-19 7 days before admission: #Severe COVID pneumonia: CXR with severe bilateral airspace disease. Inflammatory markers elevated. D-dimer 400.5. CRP 15.8. Procalcitonin 0.07. #Acute hypoxemic respiratory failure: worsened, on BiPAP 100% FiO2. #Elevated LFTs: likely from COVID #Hyperglycemia ? Diabetes Recommendations: -complete steroid course of 10-14 days, benefit beyond that is unclear -completed remdesivir -s/p Tocilizumab 8 mg/kg IV x 1 on 12/08/2020 -Continue anticoagulation per System Protocol Extremely poor prognosis. ID will sign off. Please re-consult as needed. Sabrina No MD, FACP [facility] O: [phone] F: [phone] Subjective Date of service: 12/13/20 Principal diagnosis: COVID Interval history: Afebrile. Remains on BiPAP, 100% FiO2. Objective - Exam Narrative Exam: Physical Exam (reviewed in chart to minimize risk of transmission) Constitutional: deferred Head, Ears, Nose: deferred Eyes: deferred Neck: deferred Oral: deferred Cardiovascular: deferred Respiratory: deferred GI: deferred Musculoskeletal: deferred Skin: deferred Hem/Lymphatic: deferred Psych: deferred Neurological: deferred - Constitutional Vitals: Vital Signs Temp Pulse Resp BP Pulse Ox 97 F L 69 34 H 112/79 87 12/13/20 08:00 12/13/20 09:22 12/13/20 09:22 12/13/20 09:22 12/13/20 09:22 Temperature -Last 24 Hours Temperature 97 F Temperature 98.8 F Temperature 97.6 F Temperature 99.4 F - Labs CBC & Chem 7: 12/07/20 07:01 12/10/20 07:46 Labs: Abnormal lab results 12/12/20 12/12/20 12/12/20 Range/Units 12:17 16:16 23:46 POC Glucose 170 H 179 H 186 H (70-105) mg/dL 12/13/20 12/13/20 Range/Units 05:36 07:56 POC Glucose 141 H 145 H (70-105) mg/dL
[2020-12-13] MEDS: FAMOTIDINE 20 MG TAB PO SCH (10:40)
[2020-12-13] MEDS: TAMSULOSIN 0.4 MG CAP PO SCH (10:40)
[2020-12-13 12:36] VITALS: BP 104/63
[2020-12-13 13:31] LABS: Hematocrit 54.7 % (35.5-45.6); Hemoglobin 18.4 gm/dl (11.8-15.2); Mean Corpuscular HGB Conc 34 % (32-34); Mean Corpuscular Volume 95 fl (84-94); Platelet Count 304 K/mm3 (140-440); Red Blood Count 5.77 M/mm3 (3.65-5.03); Red Cell Distribution Width 13.2 % (13.2-15.2)
[2020-12-13 13:43] LABS: Blood Urea Nitrogen 41 mg/dL (9-20); Calcium 8.5 mg/dL (8.4-10.2); Hemolysis Index 12
[2020-12-13 13:44] LABS: BUN/Creatinine Ratio 59
[2020-12-13 13:46] LABS: C-Reactive Protein 0.6 mg/dL (0.00-1.30)
[2020-12-13] MEDS ORDERED: EPINEPHrine 1 MG/10 ML SYRINGE ONE ×4 (14:10→14:13)
[2020-12-13] MEDS ORDERED: DEXTROSE 50% IN WATER (25GM) 50 ML SYRINGE IV ONE ×2 (14:18→15:00)
--- NOTE | 2020-12-13 14:32 | Death Summary ---
Summary - Providers Date of service: 12/13/20 Consults: 12/06/20 17:44 Consult to Physician [CONS] Routine Comment: Consulting Provider: JESSICA BORDEN Physician Instructions: Reason For Exam: Bilateral pneumonia, acute respiratory failure wit 12/09/20 08:58 Consult to Physician [CONS] Routine Comment: Dr. Velez Consulting Provider: MARILEE KIRKLAND Physician Instructions: Reason For Exam: COVID-19/severe hypoxemia/bilateral pneumonia 12/10/20 12:17 Consult to Physician [CONS] Routine Comment: dr. velez is aware. / pascale Consulting Provider: ORI RAYMOND Physician Instructions: Reason For Exam: COVID-19/acute hypoxia continuous BiPAP/ Attending: VERN CHU - summary Date of admission: 12/06/20 11:26 Date of : 12/13/20 (14:23) Reason for admission: Worsening shortness of breath/fever and cough COVID-19 Significant findings: 40-year-old male patient with no significant past medical history was admitted through emergency room with fever cough and shortness of breath of 4 days duration patient was admitted as PUI/high suspicion for COVID-19 [patient was positive for COVID-19 7 days prior to the admission as outpatient] patient was noted to be hypoxemic with O2 sats of 86% on ambulation patient was started on oxygen ,Oliva PCR test done in the hospital on 12/06/2020 was positive evaluated by ID patient was managed per COVID-19 protocols and guidelines patient was also evaluated by automated logistics specialist and infectious diseases, patient's medications optimized patient continues to require high flow oxygen as well as BiPAP patient was critically ill with gradual deterioration, inflammatory markers were high ,closely monitored and treated appropriately. Patient was severely encephal opathic with delirium, patient had very high inflammatory markers mainly D- dimers more than 10,000, started on empiric full dose anticoagulation, patient was critically ill unable to send out of the unit for CTA chest. Patient received steroids high-dose completed remdesivir for total 5 days and also received Actemra per ID. Patient continues to be critically ill and on 12/13/2020 patient had cardiac arrest, CODE BLUE was called and patient received CPR per ACLS protocol. Patient could not be revived and was pronounced on 12/13/2020 at 14:23, patient's family was notified, and explained all the details and answered all their questions and offered my condolences. Family verbalized understanding Time of 12/13/2020 at 14:23 Please refer to medical records for all the other details. Discharge diagnosis: --Acute respiratory failure with severe hypoxia Current Visit: Yes Status: Acute Patient is on continuous BiPAP with 100% FiO2 Still hypoxemic with O2 sats of 89%, tachypnea with RR 40 to 49/min --Severe COVID-19 infection Current Visit: Yes Status: Acute Continue steroids total 10 days Completed remdesivir per protocol for 5 days Severely hypoxemic on continuous BiPAP/100% FiO2 Received Tocilizumab [Actemra] 100 mL 12/08/2020 Home O2 evaluation, Prone positioning High inflammatory markers D-dimer 539- >10,000 on empiric full dose anticoagulation with Lovenox Follow inflammatory markers CTA chest requested,[when patient is stable] pulmonary consulted Very poor prognosis --Acute metabolic encephalopathy/delirium Current Visit: Yes Status: Acute Continue Precedex for worsening delirium Treat the underlying cause And supportive care --Bilateral Covid pneumonia Current Visit: Yes Status: Acute On empiric IV Rocephin and Zithromax for now DC antibiotics as procalcitonin is low -- SIRS (systemic inflammatory response syndrome) Current Visit: Yes Status: Acute Patient's clinical picture is consistent with systemic inflammatory response syndrome. D-dimer is 409, lactic acid is 2.99, ferritin is 199, LDH is 595 and CRP is 15.6. -- Hyponatremia/resolved Current Visit: Yes Status: Acute Closely monitor electrolytes --Hyperglycemia Current Visit: Yes Status: Acute Accu-Chek sliding scale coverage check hemoglobin A1c Probably secondary to steroids, HbA1c is less than 6 Closely monitor. --patient is critically ill/very poor prognosis Due to severe COVID-19 pneumonia Procedures/treatments rendered: Intubation and mechanical ventilation CPR per ACLS protocol Pertinent studies: Chest x-ray Abdominal x-ray Disposition: Patient - Final diagnosis (1) Acute respiratory failure with hypoxia Note: Final diagnosis: (2) Cardiac arrest Note: Final diagnosis: (3) Sepsis due to severe acute respiratory syndrome coronavirus 2 (SARS-CoV-2) Note: Final diagnosis: (4) Pneumonia due to severe acute respiratory syndrome coronavirus 2 (SARS-CoV-2) Note: Final diagnosis: (5) Cardiac arrest Note: Final diagnosis: (6) Hypercoagulable state Note: Final diagnosis:
[2020-12-13] MEDS ORDERED: EPINEPHrine 1 MG/10 ML SYRINGE IV SCH (15:00)
--- NOTE | 2020-12-13 15:45 | Event Note ---
Date: 12/13/20 I responded to a CODE BLUE on the floor. Upon arrival ACLS started and CPR in progress. Patient is asystolic. Patient required immediate intubation. I intubated the patient using a Glidoscope. I visualized the tube passing through the vocal cords. No complication. good chest rise bilaterally. Dr. Ruiz, hospitalist continue to manage the resuscitation.
--- NOTE | 2020-12-13 16:26 | Event Note ---
Date: 12/13/20 EVENT NOTE CARDIAC ARREST - ASYSTOLE called to room by RN- pt asystolic Dr Suarez has seen the pt today Per RN pt would not leave bipap on and he kept desaturating large gastric bubble on AM xray Blood glucose- normal See RN and RT documentation/orders ACLS initiated by staff; per ACLS protocol Attempted intubation, with no glidescope, not successful due to thick yellow secretions obstructing view of cords. Pt bagged until glidescope obtained. Dr Chandni HAWKINS MD at bedside. [place] sump placed- 100 ml thick yellow drainage aspirated on insertion After approx 30 min ACLS- pt pronounced ; with lack of cardiopulmonary function. See code sheet. Dr Suarez at bedside- family notified The high probability of a clinically significant, sudden or life threatening deterioration of the [] system(s) required my full and direct attention, intervention and personal management. The aggregate critical care time was [30] minutes. This time is in addition to time spent performing reported procedures but includes the following: [x] Data Review and interpretation [x] Patient assessment and monitoring of vital signs [x] Documentation [x] Medication orders and management
--- NOTE | 2020-12-13 16:55 | Event Note ---
Date: 12/13/20 Arrived in response to CODE Blue, patient was on Asytole. Full ACLS protocol including Shock delivered for Vfib and Amiodarone given in addition but with no ROSC achieved. Family was notified. Attending available at bedside. See event notes for full documentation
--- NOTE | 2020-12-13 18:24 | Event Note ---
Date: 12/13/20 I had family meeting in the waiting room at NICU Patient's mother, sisters, brother and significant other were present. They had numerous questions, explained in simple terms the patient's condition Severity of Covid pneumonia, severe hypoxemia, cardiac arrest, CPR events Poor prognosis. And expiration. I expressed my condolences deep sympathy. Informed that the nurse would talk to them regarding the other formalities. Encouraged him to call back to discuss with case management if they have any questions or concerns.
[2020-12-14] MEDS ORDERED: AMIODARONE 150 MG/3 ML INJ IV ONE (02:11)
[2020-12-14] MEDS ORDERED: CALCIUM CHLORIDE 1,000 MG/10 ML SYRINGE IV ONE (02:11)
[2020-12-14] MEDS ORDERED: EPINEPHrine 1 MG/10 ML SYRINGE ONE (02:11)
== END 2020-12-13 14:23 | DRG 177 ==
LOC: ED 09:14 → 3A 11:26 → IMCU 12-10 11:01 → CC1 12-12 23:33
PROVIDERS: ADMIT Internal Medicine; ATTEND Internal Medicine
PROC: XW033E5 Introduction of Remdesivir Anti-infective into Peripheral Vein, Percutaneous Approach, New Technology Group 5 (ICD-10-PCS; 2020-12-08)
PROC: XW033H5 Introduction of Tocilizumab into Peripheral Vein, Percutaneous Approach, New Technology Group 5 (ICD-10-PCS; 2020-12-08)
PROC: 5A09457 Assistance with Respiratory Ventilation, 24-96 Consecutive Hours, Continuous Positive Airway Pressure (ICD-10-PCS; 2020-12-09)
PROC: 4A033R1 Measurement of Arterial Saturation, Peripheral, Percutaneous Approach (ICD-10-PCS; principal; 2020-12-11)
PROC: 5A12012 Performance of Cardiac Output, Single, Manual (ICD-10-PCS; 2020-12-13)
DX: U07.1 COVID-19 (principal); A41.89 Other specified sepsis; J96.01 Acute respiratory failure with hypoxia; J12.82 Pneumonia due to coronavirus disease 2019; G93.41 Metabolic encephalopathy; E87.1 Hypo-osmolality and hyponatremia; D68.59 Other primary thrombophilia; R73.9 Hyperglycemia, unspecified; Z87.891 Personal history of nicotine dependence; I46.9 Cardiac arrest, cause unspecified
CPT/HCPCS: 36415; 36600; 71046; 74018; 80048; 80053; 82140; 82550; 82553; 82728; 82805; 82947; 82962; 83036; 83615; 83880; 84145; 84484; 85025; 85027; 85379; 86140; 87040; 93005; 94660; 94760; G0378; J0171; J0282; J0456; J0696; J1100; J1170; J1650; J1815; J2060; J2405; J3262; J3490; J7030; J7050; U0003